=== PATIENT | female | born 1945 | race Caucasian/White ===

== ENCOUNTER → 2017-04-25 | Outpatient (CLI) | payer MEDICARE, MEDICAID ==
[~2017-04-25] MED LIST: PROC60TA
[2017-04-25 12:25] LABS: AUTOMATED NEUTROPHIL # 3.8 TH/MM3 (1.8-7.7); BASOPHIL # 0.1 TH/MM3 (0-0.2); BASOPHIL % 1.3 % (0.0-2.0); EOSINOPHIL # 0.1 TH/MM3 (0-0.4); EOSINOPHIL % 1.4 % (0.0-4.0); HEMATOCRIT 34.1 % (35.0-46.0); HEMO FLAGS DIFF FINAL; LYMPH % 29.5 % (9.0-44.0); MEAN CELL VOLUME 91.9 FL (80.0-100.0); MEAN CORPUSCULAR HEMOGLOBIN 30.9 PG (27.0-34.0); MEAN CORPUSCULAR HGB CONC 33.6 % (32.0-36.0); MONO % 10.1 % (0.0-8.0); NEUT % 57.7 % (16.0-70.0); PLATELET COUNT 284 TH/MM3 (150-450); RED CELL DISTRIBUTION WIDTH 13.6 % (11.6-17.2); WHITE BLOOD COUNT 6.6 TH/MM3 (4.0-11.0)
[2017-04-25 13:06] LABS: ANION GAP 8 MEQ/L (5-15); BICARBONATE 22.6 MEQ/L (21.0-32.0); BLOOD UREA NITROGEN 24 MG/DL (7-18); CHLORIDE 110 MEQ/L (98-107); GLOMERULAR FILTRATION RATE 78 ML/MIN (>89); GLUCOSE,FASTING 102 MG/DL (74-99); SODIUM (NA) 141 MEQ/L (136-145)
[2017-04-25 13:18] LABS: ALKALINE PHOSPHATASE 85 U/L (45-117); ALT (GPT) 14 U/L (10-53); AST (GOT) 14 U/L (15-37); LDL CHOLESTEROL 67 MG/DL (0-99); THYROXINE (T4) 7.3 MCG/DL (4.8-13.9); TOTAL BILIRUBIN ADULT 0.3 MG/DL (0.2-1.0)
[2017-04-25 16:27] LABS: HEMOGLOBIN A1a 0.9 %; HEMOGLOBIN A1b 0.8 %; HEMOGLOBIN Ao 85.8 %; HEMOGLOBIN F 0.9 %; HEMOGLOBIN LA1C 1.9 %; HEMOGLOBIN P3 3.9 %
== END ==
LOC: CLAB 11:58
PROVIDERS: ATTEND Family Medicine
DX: E55.9 Vitamin D deficiency, unspecified (principal); I10 Essential (primary) hypertension; E10.8 Type 1 diabetes mellitus with unspecified complications; R53.83 Other fatigue
CPT/HCPCS: 36415; 80053; 80061; 82306; 83036; 84436; 84443; 84480; 85025

== ENCOUNTER 2018-07-10 16:21 | Inpatient (IN) ==
[2018-07-10 17:09] LABS: Baso # (Auto) 0.1 th/mm3 (0.0-0.2); Baso % (Auto) 1.3 % (0.0-2.0); Eos % (Auto) 0.5 % (0.0-4.0); Hematocrit 31.1 % (35.0-46.0); Hemoglobin 10.6 gm/dL (11.6-15.3); Lymph # (Auto) 1.6 th/mm3 (1.0-4.8); Lymph % (Auto) 18.9 % (9.0-44.0); Mean Corpuscular Hemoglobin 29.1 pg (27.0-34.0); Mean Corpuscular Volume 85.6 fL (80.0-100.0); Mean Platelet Volume 8.4 fL (7.0-11.0); Mono # (Auto) 0.7 th/mm3 (0.0-0.9); Mono % (Auto) 8.5 % (0.0-8.0); Neut # (Auto) 6.1 th/mm3 (1.8-7.7); Neut % (Auto) 70.8 % (16.0-70.0); Platelet Count 284 th/mm3 (150-450); Red Blood Count 3.64 mil/mm3 (4.00-5.30); Red Cell Distribution Width 15.3 % (11.6-17.2); White Blood Count 8.6 th/mm3 (4.0-11.0)
[2018-07-10 17:40] LABS: Albumin 3.6 g/dL (3.4-5.0); Anion Gap 9 meq/L (5-15); Aspartate Aminotransferase 11 U/L (15-37); Blood Urea Nitrogen 22 mg/dL (7-18); Calcium 9.3 mg/dL (8.5-10.1); Carbon Dioxide 22.6 meq/L (21.0-32.0); Chloride 111 meq/L (98-107); Glomerular Filtration Rate 66 mL/min (>89); Glucose,Random 101 mg/dL (74-106); Potassium 3.8 meq/L (3.5-5.1); Sodium 143 meq/L (136-145)
[2018-07-10 17:41] LABS: Alanine Aminotransferase 10 U/L (10-53)
[2018-07-10 17:51] LABS: Alkaline Phosphatase 133 U/L (45-117); Total Protein 7.8 g/dL (6.4-8.2)
--- NOTE | 2018-07-10 17:52 | ED ---
HPI General Chief Complaint: Psychiatric Symptoms Stated Complaint: Pysch Eval/OBPD Time Seen by Provider: 07/10/18 16:31 Source: patient Mode of arrival: ambulatory Limitations: no limitations History of Present Illness HPI Narrative: 73-year-old female presents to the emergency department under Gore act. According to the Gore act report that he has contacted her doctor, Abhishek Pedraza and stated that people are trying to kill her at her apartment. Cathy stated that she hears voices saying the are going to kill her. But his doctor is instructed her to call 911 and have a police officer booking evaluate her. I spoke with her doctor who wants Cathy to be Gore acted. On my evaluation of the patient she denies suicidal or homicidal ideations. Denies auditory or visual hallucinations. Denies illegal drug use. Reports occasional alcohol use. Denies tobacco use. Denies chest pain, shortness of breath, abdominal pain, nausea, vomiting, change in urine or stool. No known aggravating or relieving factors. Symptoms are moderate to severe in severity. Onset unknown. Duration unknown. Allergies to Haldol. Primary care provider is Dr. Hussein. History of lung cancer, hypertension, diabetes mellitus. Has no other medical complaints. No other modifying factors or associated signs and symptoms. Related Data Home Medications Medication Instructions Recorded Confirmed aspirin 81 mg PO DAILY 07/10/18 07/10/18 ibuprofen 800 mg PO TID PRN 07/10/18 07/10/18 metformin 500 mg PO BID 07/10/18 07/10/18 metoprolol succinate 50 mg PO DAILY 07/10/18 07/10/18 nifedipine 90 mg PO DAILY 07/10/18 07/10/18 pantoprazole 40 mg PO DAILY 07/10/18 07/10/18 ropinirole 8 mg PO DAILY 07/10/18 07/10/18 simvastatin 10 mg PO BID 07/10/18 07/10/18 sucralfate 1 g PO Q6H 07/10/18 07/10/18 tramadol 50 mg PO Q6H PRN 07/10/18 07/10/18 Allergies Allergy/AdvReac Type Severity Reaction Status Date / Time haloperidol Allergy Severe MUSCLE Verified 07/11/18 16:44 SPASMS Review of Systems ROS: all other systems reviewed are negative [facility] Medical History Medical History Diabetes (Acute) History of hysterectomy (Acute) Lung cancer (Acute) Family History Family History Other CAD (coronary artery disease) Social History Social History Substance History: No History of Abuse Second Hand Smoke Exposure: Yes Smoking Status: Never smoker How Often Do You Have a Drink Containing Alcohol: Monthly or less Recent Travel in [facility] within the Last 8 Weeks: No Recent Out of Country Travel within the Last 8 Weeks: No Immunization History Tetanus Immunization: Unsure Hx Influenza Vaccine This Season: Yes Course Initial Documented Vital Signs Temperature 99.1 F 07/10/18 16:51 Pulse Rate 79 07/10/18 16:51 Respiratory Rate 18 07/10/18 16:51 Blood Pressure 145/66 H 07/10/18 16:51 Pulse Oximetry 100 07/10/18 16:51 Last Documented Vital Signs Temperature 97.6 F 07/15/18 06:00 Pulse Rate 82 07/15/18 06:00 Respiratory Rate 18 07/15/18 06:00 Blood Pressure 144/67 H 07/15/18 06:00 Pulse Oximetry 99 07/15/18 06:00 Medical Decision Making [facility] Narrative Medical decision making narrative: Patient presents under a Gore act. Physical examination and vital signs are essentially unremarkable. Patient has no medical complaints to report. Psych screen has been ordered. If the laboratory results are unremarkable, the patient will be medically cleared for psychiatric evaluation and disposition. Medical Screen Exam Complete: Yes Emergency Medical Condition: Yes Lab Data Result diagrams: 07/11/18 11:47 07/14/18 20:22 Lab Results 07/10/18 07/10/18 07/10/18 Range/Units 16:35 16:35 16:35 WBC 8.6 (4.0-11.0) th/mm3 RBC 3.64 L (4.00-5.30) mil/mm3 Hgb 10.6 L (11.6-15.3) gm/dL Hct 31.1 L (35.0-46.0) % MCV 85.6 (80.0-100.0) fL MCH 29.1 (27.0-34.0) pg MCHC 34.0 (32.0-36.0) % RDW 15.3 (11.6-17.2) % Plt Count 284 (150-450) th/mm3 MPV 8.4 (7.0-11.0) fL Neut % (Auto) 70.8 H (16.0-70.0) % Lymph % (Auto) 18.9 (9.0-44.0) % Gage % (Auto) 8.5 H (0.0-8.0) % Eos % (Auto) 0.5 (0.0-4.0) % Baso % (Auto) 1.3 (0.0-2.0) % Neut # (Auto) 6.1 (1.8-7.7) th/mm3 Lymph # (Auto) 1.6 (1.0-4.8) th/mm3 Gage # (Auto) 0.7 (0.0-0.9) th/mm3 Eos # (Auto) 0.0 (0.0-0.4) th/mm3 Baso # (Auto) 0.1 (0.0-0.2) th/mm3 WBC Differential . Differential Comment Auto diff final Sodium 143 (136-145) meq/L Potassium 3.8 (3.5-5.1) meq/L Chloride 111 H (98-107) meq/L Carbon Dioxide 22.6 (21.0-32.0) meq/L Anion Gap 9 (5-15) meq/L BUN 22 H (7-18) mg/dL Creatinine 0.84 (0.50-1.00) mg/dL Estimated GFR 66 L (>89) mL/min POC Glucose (68-110) mg/dl Random Glucose 101 (74-106) mg/dL Hemoglobin A1c (4.3-6.0) % Calcium 9.3 (8.5-10.1) mg/dL Total Bilirubin 0.3 (0.2-1.0) mg/dL AST 11 L (15-37) U/L ALT 10 (10-53) U/L Alkaline Phosphatase 133 H (45-117) U/L Ammonia (11-32) mcmol/L Total Protein 7.8 (6.4-8.2) g/dL Albumin 3.6 (3.4-5.0) g/dL Triglycerides (42-150) mg/dL Cholesterol (120-200) mg/dL LDL Cholesterol, Calc (0-99) mg/dL HDL Cholesterol (40.0-60.0) mg/dL Cholesterol/HDL Ratio Ratio TSH 2.070 (0.358-3.740) uIU/mL Free T4 (0.76-1.46) ng/dL Free T3 (2.18-3.98) pg/mL Urine Color (Yellw/Straw) Urine Clarity (Clear) Urine pH (5.0-8.5) Ur Specific [place] (1.002-1.035) Urine Protein (Neg-Trace) mg/dL Urine Glucose (UA) (Negative) mg/dL Urine Ketones (Negative) mg/dL Urine Occult Blood (Negative) Urine Nitrate (Negative) Urine Bilirubin (Negative) Urine Urobilinogen (Less than 2) mg/dL Ur Leukocyte Esterase (Negative) Urine RBC (0-3) /hpf Urine WBC (0-5) /hpf Ur Squamous Epith Cells (0-5) /hpf Urine Bacteria (None) /hpf Micro UA Comment Ur Microscopic Review Urine Culture Comments Salicylates 1.9 L (2.8-20.0) mg/dL Urine Opiates Screen (Neg) Acetaminophen Less than 2.0 L (10.0-30.0) mcg/mL Ur Barbiturates Screen (Neg) Ur Amphetamines Screen (Neg) U Benzodiazepines Scrn (Neg) Urine Cocaine Screen (Neg) U Cannabinoids Screen (Neg) Serum Alcohol Less than 3 (0-5) mg/dL 07/10/18 07/10/18 07/10/18 Range/Units 19:10 19:10 22:36 WBC (4.0-11.0) th/mm3 RBC (4.00-5.30) mil/mm3 Hgb (11.6-15.3) gm/dL Hct (35.0-46.0) % MCV (80.0-100.0) fL MCH (27.0-34.0) pg MCHC (32.0-36.0) % RDW (11.6-17.2) % Plt Count (150-450) th/mm3 MPV (7.0-11.0) fL Neut % (Auto) (16.0-70.0) % Lymph % (Auto) (9.0-44.0) % Gage % (Auto) (0.0-8.0) % Eos % (Auto) (0.0-4.0) % Baso % (Auto) (0.0-2.0) % Neut # (Auto) (1.8-7.7) th/mm3 Lymph # (Auto) (1.0-4.8) th/mm3 Gage # (Auto) (0.0-0.9) th/mm3 Eos # (Auto) (0.0-0.4) th/mm3 Baso # (Auto) (0.0-0.2) th/mm3 WBC Differential Differential Comment Sodium (136-145) meq/L Potassium (3.5-5.1) meq/L Chloride (98-107) meq/L Carbon Dioxide (21.0-32.0) meq/L Anion Gap (5-15) meq/L BUN (7-18) mg/dL Creatinine (0.50-1.00) mg/dL Estimated GFR (>89) mL/min POC Glucose 112 H (68-110) mg/dl Random Glucose (74-106) mg/dL Hemoglobin A1c (4.3-6.0) % Calcium (8.5-10.1) mg/dL Total Bilirubin (0.2-1.0) mg/dL AST (15-37) U/L ALT (10-53) U/L Alkaline Phosphatase (45-117) U/L Ammonia (11-32) mcmol/L Total Protein (6.4-8.2) g/dL Albumin (3.4-5.0) g/dL Triglycerides (42-150) mg/dL Cholesterol (120-200) mg/dL LDL Cholesterol, Calc (0-99) mg/dL HDL Cholesterol (40.0-60.0) mg/dL Cholesterol/HDL Ratio Ratio TSH (0.358-3.740) uIU/mL Free T4 (0.76-1.46) ng/dL Free T3 (2.18-3.98) pg/mL Urine Color Straw (Yellw/Straw) Urine Clarity Hazy H (Clear) Urine pH 6.0 (5.0-8.5) Ur Specific [place] 1.008 (1.002-1.035) Urine Protein Negative (Neg-Trace) mg/dL Urine Glucose (UA) Negative (Negative) mg/dL Urine Ketones Negative (Negative) mg/dL Urine Occult Blood Small H (Negative) Urine Nitrate Negative (Negative) Urine Bilirubin Negative (Negative) Urine Urobilinogen Less than 2 (Less than 2) mg/dL Ur Leukocyte Esterase Moderate H (Negative) Urine RBC 2 (0-3) /hpf Urine WBC 13 H (0-5) /hpf Ur Squamous Epith Cells 1 (0-5) /hpf Urine Bacteria Rare H (None) /hpf Micro UA Comment Culture indicated Ur Microscopic Review Not Reportable Urine Culture Comments Culture indicated Salicylates (2.8-20.0) mg/dL Urine Opiates Screen Neg (Neg) Acetaminophen (10.0-30.0) mcg/mL Ur Barbiturates Screen Neg (Neg) Ur Amphetamines Screen Neg (Neg) U Benzodiazepines Scrn Neg (Neg) Urine Cocaine Screen Neg (Neg) U Cannabinoids Screen Neg (Neg) Serum Alcohol (0-5) mg/dL 07/11/18 07/11/18 07/11/18 Range/Units 11:04 11:47 11:47 WBC 8.8 (4.0-11.0) th/mm3 RBC 4.12 (4.00-5.30) mil/mm3 Hgb 11.5 L (11.6-15.3) gm/dL Hct 35.9 (35.0-46.0) % MCV 87.1 (80.0-100.0) fL MCH 27.8 (27.0-34.0) pg MCHC 31.9 L (32.0-36.0) % RDW 15.6 (11.6-17.2) % Plt Count 307 (150-450) th/mm3 MPV 8.8 (7.0-11.0) fL Neut % (Auto) 76.3 H (16.0-70.0) % Lymph % (Auto) 13.9 (9.0-44.0) % Gage % (Auto) 8.1 H (0.0-8.0) % Eos % (Auto) 0.5 (0.0-4.0) % Baso % (Auto) 1.2 (0.0-2.0) % Neut # (Auto) 6.7 (1.8-7.7) th/mm3 Lymph # (Auto) 1.2 (1.0-4.8) th/mm3 Gage # (Auto) 0.7 (0.0-0.9) th/mm3 Eos # (Auto) 0.0 (0.0-0.4) th/mm3 Baso # (Auto) 0.1 (0.0-0.2) th/mm3 WBC Differential . Differential Comment Auto diff final Sodium 143 (136-145) meq/L Potassium 3.7 (3.5-5.1) meq/L Chloride 106 (98-107) meq/L Carbon Dioxide 28.5 (21.0-32.0) meq/L Anion Gap 9 (5-15) meq/L BUN 20 H (7-18) mg/dL Creatinine 1.02 H (0.50-1.00) mg/dL Estimated GFR 53 L (>89) mL/min POC Glucose 106 (68-110) mg/dl Random Glucose 79 (74-106) mg/dL Hemoglobin A1c (4.3-6.0) % Calcium 9.4 (8.5-10.1) mg/dL Total Bilirubin 0.4 (0.2-1.0) mg/dL AST 16 (15-37) U/L ALT 11 (10-53) U/L Alkaline Phosphatase 145 H (45-117) U/L Ammonia (11-32) mcmol/L Total Protein 8.1 (6.4-8.2) g/dL Albumin 3.6 (3.4-5.0) g/dL Triglycerides 91 (42-150) mg/dL Cholesterol 145 (120-200) mg/dL LDL Cholesterol, Calc 52 (0-99) mg/dL HDL Cholesterol 75.2 H (40.0-60.0) mg/dL Cholesterol/HDL Ratio 1.92 Ratio TSH (0.358-3.740) uIU/mL Free T4 (0.76-1.46) ng/dL Free T3 (2.18-3.98) pg/mL Urine Color (Yellw/Straw) Urine Clarity (Clear) Urine pH (5.0-8.5) Ur Specific [place] (1.002-1.035) Urine Protein (Neg-Trace) mg/dL Urine Glucose (UA) (Negative) mg/dL Urine Ketones (Negative) mg/dL Urine Occult Blood (Negative) Urine Nitrate (Negative) Urine Bilirubin (Negative) Urine Urobilinogen (Less than 2) mg/dL Ur Leukocyte Esterase (Negative) Urine RBC (0-3) /hpf Urine WBC (0-5) /hpf Ur Squamous Epith Cells (0-5) /hpf Urine Bacteria (None) /hpf Micro UA Comment Ur Microscopic Review Urine Culture Comments Salicylates (2.8-20.0) mg/dL Urine Opiates Screen (Neg) Acetaminophen (10.0-30.0) mcg/mL Ur Barbiturates Screen (Neg) Ur Amphetamines Screen (Neg) U Benzodiazepines Scrn (Neg) Urine Cocaine Screen (Neg) U Cannabinoids Screen (Neg) Serum Alcohol (0-5) mg/dL 07/11/18 07/12/18 07/12/18 Range/Units 11:47 08:19 11:19 WBC (4.0-11.0) th/mm3 RBC (4.00-5.30) mil/mm3 Hgb (11.6-15.3) gm/dL Hct (35.0-46.0) % MCV (80.0-100.0) fL MCH (27.0-34.0) pg MCHC (32.0-36.0) % RDW (11.6-17.2) % Plt Count (150-450) th/mm3 MPV (7.0-11.0) fL Neut % (Auto) (16.0-70.0) % Lymph % (Auto) (9.0-44.0) % Gage % (Auto) (0.0-8.0) % Eos % (Auto) (0.0-4.0) % Baso % (Auto) (0.0-2.0) % Neut # (Auto) (1.8-7.7) th/mm3 Lymph # (Auto) (1.0-4.8) th/mm3 Gage # (Auto) (0.0-0.9) th/mm3 Eos # (Auto) (0.0-0.4) th/mm3 Baso # (Auto) (0.0-0.2) th/mm3 WBC Differential Differential Comment Sodium 138 (136-145) meq/L Potassium 3.7 (3.5-5.1) meq/L Chloride 104 (98-107) meq/L Carbon Dioxide 25.9 (21.0-32.0) meq/L Anion Gap 8 (5-15) meq/L BUN 28 H (7-18) mg/dL Creatinine 1.23 H (0.50-1.00) mg/dL Estimated GFR 43 L (>89) mL/min POC Glucose 103 (68-110) mg/dl Random Glucose 157 H (74-106) mg/dL Hemoglobin A1c 5.7 (4.3-6.0) % Calcium 9.3 (8.5-10.1) mg/dL Total Bilirubin (0.2-1.0) mg/dL AST (15-37) U/L ALT (10-53) U/L Alkaline Phosphatase (45-117) U/L Ammonia (11-32) mcmol/L Total Protein (6.4-8.2) g/dL Albumin (3.4-5.0) g/dL Triglycerides (42-150) mg/dL Cholesterol (120-200) mg/dL LDL Cholesterol, Calc (0-99) mg/dL HDL Cholesterol (40.0-60.0) mg/dL Cholesterol/HDL Ratio Ratio TSH (0.358-3.740) uIU/mL Free T4 (0.76-1.46) ng/dL Free T3 (2.18-3.98) pg/mL Urine Color (Yellw/Straw) Urine Clarity (Clear) Urine pH (5.0-8.5) Ur Specific [place] (1.002-1.035) Urine Protein (Neg-Trace) mg/dL Urine Glucose (UA) (Negative) mg/dL Urine Ketones (Negative) mg/dL Urine Occult Blood (Negative) Urine Nitrate (Negative) Urine Bilirubin (Negative) Urine Urobilinogen (Less than 2) mg/dL Ur Leukocyte Esterase (Negative) Urine RBC (0-3) /hpf Urine WBC (0-5) /hpf Ur Squamous Epith Cells (0-5) /hpf Urine Bacteria (None) /hpf Micro UA Comment Ur Microscopic Review Urine Culture Comments Salicylates (2.8-20.0) mg/dL Urine Opiates Screen (Neg) Acetaminophen (10.0-30.0) mcg/mL Ur Barbiturates Screen (Neg) Ur Amphetamines Screen (Neg) U Benzodiazepines Scrn (Neg) Urine Cocaine Screen (Neg) U Cannabinoids Screen (Neg) Serum Alcohol (0-5) mg/dL 07/12/18 07/13/18 07/13/18 Range/Units 19:18 11:07 16:05 WBC (4.0-11.0) th/mm3 RBC (4.00-5.30) mil/mm3 Hgb (11.6-15.3) gm/dL Hct (35.0-46.0) % MCV (80.0-100.0) fL MCH (27.0-34.0) pg MCHC (32.0-36.0) % RDW (11.6-17.2) % Plt Count (150-450) th/mm3 MPV (7.0-11.0) fL Neut % (Auto) (16.0-70.0) % Lymph % (Auto) (9.0-44.0) % Gage % (Auto) (0.0-8.0) % Eos % (Auto) (0.0-4.0) % Baso % (Auto) (0.0-2.0) % Neut # (Auto) (1.8-7.7) th/mm3 Lymph # (Auto) (1.0-4.8) th/mm3 Gage # (Auto) (0.0-0.9) th/mm3 Eos # (Auto) (0.0-0.4) th/mm3 Baso # (Auto) (0.0-0.2) th/mm3 WBC Differential Differential Comment Sodium 138 (136-145) meq/L Potassium 4.2 (3.5-5.1) meq/L Chloride 107 (98-107) meq/L Carbon Dioxide 22.8 (21.0-32.0) meq/L Anion Gap 8 (5-15) meq/L BUN 35 H (7-18) mg/dL Creatinine 1.39 H (0.50-1.00) mg/dL Estimated GFR 37 L (>89) mL/min POC Glucose 115 H 110 (68-110) mg/dl Random Glucose 127 H (74-106) mg/dL Hemoglobin A1c (4.3-6.0) % Calcium 8.6 (8.5-10.1) mg/dL Total Bilirubin (0.2-1.0) mg/dL AST (15-37) U/L ALT (10-53) U/L Alkaline Phosphatase (45-117) U/L Ammonia (11-32) mcmol/L Total Protein (6.4-8.2) g/dL Albumin (3.4-5.0) g/dL Triglycerides (42-150) mg/dL Cholesterol (120-200) mg/dL LDL Cholesterol, Calc (0-99) mg/dL HDL Cholesterol (40.0-60.0) mg/dL Cholesterol/HDL Ratio Ratio TSH (0.358-3.740) uIU/mL Free T4 (0.76-1.46) ng/dL Free T3 (2.18-3.98) pg/mL Urine Color (Yellw/Straw) Urine Clarity (Clear) Urine pH (5.0-8.5) Ur Specific [place] (1.002-1.035) Urine Protein (Neg-Trace) mg/dL Urine Glucose (UA) (Negative) mg/dL Urine Ketones (Negative) mg/dL Urine Occult Blood (Negative) Urine Nitrate (Negative) Urine Bilirubin (Negative) Urine Urobilinogen (Less than 2) mg/dL Ur Leukocyte Esterase (Negative) Urine RBC (0-3) /hpf Urine WBC (0-5) /hpf Ur Squamous Epith Cells (0-5) /hpf Urine Bacteria (None) /hpf Micro UA Comment Ur Microscopic Review Urine Culture Comments Salicylates (2.8-20.0) mg/dL Urine Opiates Screen (Neg) Acetaminophen (10.0-30.0) mcg/mL Ur Barbiturates Screen (Neg) Ur Amphetamines Screen (Neg) U Benzodiazepines Scrn (Neg) Urine Cocaine Screen (Neg) U Cannabinoids Screen (Neg) Serum Alcohol (0-5) mg/dL 07/13/18 07/14/18 07/14/18 Range/Units 20:35 07:43 07:45 WBC (4.0-11.0) th/mm3 RBC (4.00-5.30) mil/mm3 Hgb (11.6-15.3) gm/dL Hct (35.0-46.0) % MCV (80.0-100.0) fL MCH (27.0-34.0) pg MCHC (32.0-36.0) % RDW (11.6-17.2) % Plt Count (150-450) th/mm3 MPV (7.0-11.0) fL Neut % (Auto) (16.0-70.0) % Lymph % (Auto) (9.0-44.0) % Gage % (Auto) (0.0-8.0) % Eos % (Auto) (0.0-4.0) % Baso % (Auto) (0.0-2.0) % Neut # (Auto) (1.8-7.7) th/mm3 Lymph # (Auto) (1.0-4.8) th/mm3 Gage # (Auto) (0.0-0.9) th/mm3 Eos # (Auto) (0.0-0.4) th/mm3 Baso # (Auto) (0.0-0.2) th/mm3 WBC Differential Differential Comment Sodium 132 L (136-145) meq/L Potassium 4.1 (3.5-5.1) meq/L Chloride 100 (98-107) meq/L Carbon Dioxide 22.8 (21.0-32.0) meq/L Anion Gap 9 (5-15) meq/L BUN 27 H (7-18) mg/dL Creatinine 0.84 (0.50-1.00) mg/dL Estimated GFR 66 L (>89) mL/min POC Glucose 102 114 H (68-110) mg/dl Random Glucose 97 (74-106) mg/dL Hemoglobin A1c (4.3-6.0) % Calcium 8.9 (8.5-10.1) mg/dL Total Bilirubin (0.2-1.0) mg/dL AST (15-37) U/L ALT (10-53) U/L Alkaline Phosphatase (45-117) U/L Ammonia (11-32) mcmol/L Total Protein (6.4-8.2) g/dL Albumin (3.4-5.0) g/dL Triglycerides (42-150) mg/dL Cholesterol (120-200) mg/dL LDL Cholesterol, Calc (0-99) mg/dL HDL Cholesterol (40.0-60.0) mg/dL Cholesterol/HDL Ratio Ratio TSH (0.358-3.740) uIU/mL Free T4 (0.76-1.46) ng/dL Free T3 (2.18-3.98) pg/mL Urine Color (Yellw/Straw) Urine Clarity (Clear) Urine pH (5.0-8.5) Ur Specific [place] (1.002-1.035) Urine Protein (Neg-Trace) mg/dL Urine Glucose (UA) (Negative) mg/dL Urine Ketones (Negative) mg/dL Urine Occult Blood (Negative) Urine Nitrate (Negative) Urine Bilirubin (Negative) Urine Urobilinogen (Less than 2) mg/dL Ur Leukocyte Esterase (Negative) Urine RBC (0-3) /hpf Urine WBC (0-5) /hpf Ur Squamous Epith Cells (0-5) /hpf Urine Bacteria (None) /hpf Micro UA Comment Ur Microscopic Review Urine Culture Comments Salicylates (2.8-20.0) mg/dL Urine Opiates Screen (Neg) Acetaminophen (10.0-30.0) mcg/mL Ur Barbiturates Screen (Neg) Ur Amphetamines Screen (Neg) U Benzodiazepines Scrn (Neg) Urine Cocaine Screen (Neg) U Cannabinoids Screen (Neg) Serum Alcohol (0-5) mg/dL 07/14/18 07/14/18 07/14/18 Range/Units 11:50 16:35 20:19 WBC (4.0-11.0) th/mm3 RBC (4.00-5.30) mil/mm3 Hgb (11.6-15.3) gm/dL Hct (35.0-46.0) % MCV (80.0-100.0) fL MCH (27.0-34.0) pg MCHC (32.0-36.0) % RDW (11.6-17.2) % Plt Count (150-450) th/mm3 MPV (7.0-11.0) fL Neut % (Auto) (16.0-70.0) % Lymph % (Auto) (9.0-44.0) % Gage % (Auto) (0.0-8.0) % Eos % (Auto) (0.0-4.0) % Baso % (Auto) (0.0-2.0) % Neut # (Auto) (1.8-7.7) th/mm3 Lymph # (Auto) (1.0-4.8) th/mm3 Gage # (Auto) (0.0-0.9) th/mm3 Eos # (Auto) (0.0-0.4) th/mm3 Baso # (Auto) (0.0-0.2) th/mm3 WBC Differential Differential Comment Sodium (136-145) meq/L Potassium (3.5-5.1) meq/L Chloride (98-107) meq/L Carbon Dioxide (21.0-32.0) meq/L Anion Gap (5-15) meq/L BUN (7-18) mg/dL Creatinine (0.50-1.00) mg/dL Estimated GFR (>89) mL/min POC Glucose 91 98 107 (68-110) mg/dl Random Glucose (74-106) mg/dL Hemoglobin A1c (4.3-6.0) % Calcium (8.5-10.1) mg/dL Total Bilirubin (0.2-1.0) mg/dL AST (15-37) U/L ALT (10-53) U/L Alkaline Phosphatase (45-117) U/L Ammonia (11-32) mcmol/L Total Protein (6.4-8.2) g/dL Albumin (3.4-5.0) g/dL Triglycerides (42-150) mg/dL Cholesterol (120-200) mg/dL LDL Cholesterol, Calc (0-99) mg/dL HDL Cholesterol (40.0-60.0) mg/dL Cholesterol/HDL Ratio Ratio TSH (0.358-3.740) uIU/mL Free T4 (0.76-1.46) ng/dL Free T3 (2.18-3.98) pg/mL Urine Color (Yellw/Straw) Urine Clarity (Clear) Urine pH (5.0-8.5) Ur Specific [place] (1.002-1.035) Urine Protein (Neg-Trace) mg/dL Urine Glucose (UA) (Negative) mg/dL Urine Ketones (Negative) mg/dL Urine Occult Blood (Negative) Urine Nitrate (Negative) Urine Bilirubin (Negative) Urine Urobilinogen (Less than 2) mg/dL Ur Leukocyte Esterase (Negative) Urine RBC (0-3) /hpf Urine WBC (0-5) /hpf Ur Squamous Epith Cells (0-5) /hpf Urine Bacteria (None) /hpf Micro UA Comment Ur Microscopic Review Urine Culture Comments Salicylates (2.8-20.0) mg/dL Urine Opiates Screen (Neg) Acetaminophen (10.0-30.0) mcg/mL Ur Barbiturates Screen (Neg) Ur Amphetamines Screen (Neg) U Benzodiazepines Scrn (Neg) Urine Cocaine Screen (Neg) U Cannabinoids Screen (Neg) Serum Alcohol (0-5) mg/dL 07/14/18 07/14/18 07/14/18 Range/Units 20:22 20:22 20:22 WBC (4.0-11.0) th/mm3 RBC (4.00-5.30) mil/mm3 Hgb (11.6-15.3) gm/dL Hct (35.0-46.0) % MCV (80.0-100.0) fL MCH (27.0-34.0) pg MCHC (32.0-36.0) % RDW (11.6-17.2) % Plt Count (150-450) th/mm3 MPV (7.0-11.0) fL Neut % (Auto) (16.0-70.0) % Lymph % (Auto) (9.0-44.0) % Gage % (Auto) (0.0-8.0) % Eos % (Auto) (0.0-4.0) % Baso % (Auto) (0.0-2.0) % Neut # (Auto) (1.8-7.7) th/mm3 Lymph # (Auto) (1.0-4.8) th/mm3 Gage # (Auto) (0.0-0.9) th/mm3 Eos # (Auto) (0.0-0.4) th/mm3 Baso # (Auto) (0.0-0.2) th/mm3 WBC Differential Differential Comment Sodium 135 L (136-145) meq/L Potassium 4.6 (3.5-5.1) meq/L Chloride 103 (98-107) meq/L Carbon Dioxide 21.9 (21.0-32.0) meq/L Anion Gap 10 (5-15) meq/L BUN 28 H (7-18) mg/dL Creatinine 0.97 (0.50-1.00) mg/dL Estimated GFR 56 L (>89) mL/min POC Glucose (68-110) mg/dl Random Glucose 96 (74-106) mg/dL Hemoglobin A1c (4.3-6.0) % Calcium 9.1 (8.5-10.1) mg/dL Total Bilirubin (0.2-1.0) mg/dL AST (15-37) U/L ALT (10-53) U/L Alkaline Phosphatase (45-117) U/L Ammonia 18 (11-32) mcmol/L Total Protein (6.4-8.2) g/dL Albumin (3.4-5.0) g/dL Triglycerides (42-150) mg/dL Cholesterol (120-200) mg/dL LDL Cholesterol, Calc (0-99) mg/dL HDL Cholesterol (40.0-60.0) mg/dL Cholesterol/HDL Ratio Ratio TSH 1.990 (0.358-3.740) uIU/mL Free T4 0.81 (0.76-1.46) ng/dL Free T3 2.01 L (2.18-3.98) pg/mL Urine Color (Yellw/Straw) Urine Clarity (Clear) Urine pH (5.0-8.5) Ur Specific [place] (1.002-1.035) Urine Protein (Neg-Trace) mg/dL Urine Glucose (UA) (Negative) mg/dL Urine Ketones (Negative) mg/dL Urine Occult Blood (Negative) Urine Nitrate (Negative) Urine Bilirubin (Negative) Urine Urobilinogen (Less than 2) mg/dL Ur Leukocyte Esterase (Negative) Urine RBC (0-3) /hpf Urine WBC (0-5) /hpf Ur Squamous Epith Cells (0-5) /hpf Urine Bacteria (None) /hpf Micro UA Comment Ur Microscopic Review Urine Culture Comments Salicylates (2.8-20.0) mg/dL Urine Opiates Screen (Neg) Acetaminophen (10.0-30.0) mcg/mL Ur Barbiturates Screen (Neg) Ur Amphetamines Screen (Neg) U Benzodiazepines Scrn (Neg) Urine Cocaine Screen (Neg) U Cannabinoids Screen (Neg) Serum Alcohol (0-5) mg/dL 07/15/18 Range/Units 06:11 WBC (4.0-11.0) th/mm3 RBC (4.00-5.30) mil/mm3 Hgb (11.6-15.3) gm/dL Hct (35.0-46.0) % MCV (80.0-100.0) fL MCH (27.0-34.0) pg MCHC (32.0-36.0) % RDW (11.6-17.2) % Plt Count (150-450) th/mm3 MPV (7.0-11.0) fL Neut % (Auto) (16.0-70.0) % Lymph % (Auto) (9.0-44.0) % Gage % (Auto) (0.0-8.0) % Eos % (Auto) (0.0-4.0) % Baso % (Auto) (0.0-2.0) % Neut # (Auto) (1.8-7.7) th/mm3 Lymph # (Auto) (1.0-4.8) th/mm3 Gage # (Auto) (0.0-0.9) th/mm3 Eos # (Auto) (0.0-0.4) th/mm3 Baso # (Auto) (0.0-0.2) th/mm3 WBC Differential Differential Comment Sodium (136-145) meq/L Potassium (3.5-5.1) meq/L Chloride (98-107) meq/L Carbon Dioxide (21.0-32.0) meq/L Anion Gap (5-15) meq/L BUN (7-18) mg/dL Creatinine (0.50-1.00) mg/dL Estimated GFR (>89) mL/min POC Glucose 105 (68-110) mg/dl Random Glucose (74-106) mg/dL Hemoglobin A1c (4.3-6.0) % Calcium (8.5-10.1) mg/dL Total Bilirubin (0.2-1.0) mg/dL AST (15-37) U/L ALT (10-53) U/L Alkaline Phosphatase (45-117) U/L Ammonia (11-32) mcmol/L Total Protein (6.4-8.2) g/dL Albumin (3.4-5.0) g/dL Triglycerides (42-150) mg/dL Cholesterol (120-200) mg/dL LDL Cholesterol, Calc (0-99) mg/dL HDL Cholesterol (40.0-60.0) mg/dL Cholesterol/HDL Ratio Ratio TSH (0.358-3.740) uIU/mL Free T4 (0.76-1.46) ng/dL Free T3 (2.18-3.98) pg/mL Urine Color (Yellw/Straw) Urine Clarity (Clear) Urine pH (5.0-8.5) Ur Specific [place] (1.002-1.035) Urine Protein (Neg-Trace) mg/dL Urine Glucose (UA) (Negative) mg/dL Urine Ketones (Negative) mg/dL Urine Occult Blood (Negative) Urine Nitrate (Negative) Urine Bilirubin (Negative) Urine Urobilinogen (Less than 2) mg/dL Ur Leukocyte Esterase (Negative) Urine RBC (0-3) /hpf Urine WBC (0-5) /hpf Ur Squamous Epith Cells (0-5) /hpf Urine Bacteria (None) /hpf Micro UA Comment Ur Microscopic Review Urine Culture Comments Salicylates (2.8-20.0) mg/dL Urine Opiates Screen (Neg) Acetaminophen (10.0-30.0) mcg/mL Ur Barbiturates Screen (Neg) Ur Amphetamines Screen (Neg) U Benzodiazepines Scrn (Neg) Urine Cocaine Screen (Neg) U Cannabinoids Screen (Neg) Serum Alcohol (0-5) mg/dL Imaging Data Radiologist's impression: Hip X-Ray 07/14/18 00:00 CONCLUSION: 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 Associated varus deformity and marked bone resorption and cortical thinning but no acute fracture demonstrated. Discharge Plan Discharge Disposition Patient Disposition: 30 Still Patient Discharge Condition Condition: Stable Discharge Details Diagnosis: Encounter for medical clearance for patient hold Physicians Team ED Provider: Andree Gore ED Midlevel Provider: Geovanna Daniel Primary Care Provider: Fred Anaya Attending Provider: Tre Perry Other Providers: Fred Anaya ; Tre Perry Status ED Status: Left Department Discharge Information Discharge Date/Time: 07/10/18 21:01
[2018-07-10 19:33] LABS: Bacteria,Urine Rare /hpf; Bilirubin,Urine Negative (Negative); Clarity,Urine Hazy (Clear); Color,Urine Straw (Yellw/Straw); Glucose,Urine (UA) Negative (Negative); Leukocyte Esterase,Urine Moderate (Negative); Nitrite,Urine Negative (Negative); Specific Gravity,Urine 1.008 (1.002-1.035); Squamous Epithelial Cell,Urine 1 /hpf (0-5)
[2018-07-10 19:37] LABS: Amphetamine Screen,Urine Neg (Neg); Barbiturate Screen,Urine Neg (Neg); Cannabinoid Screen,Urine Neg (Neg); Cocaine Screen,Urine Neg (Neg)
[2018-07-10 19:40] LABS: Opiate Screen,Urine Neg (Neg)
[2018-07-10] MEDS ORDERED: Melatonin 5 MG Tablet PO PRN (19:52)
[2018-07-10] MEDS ORDERED: Aluminum/Magnesium/Simethacone Susp 30 ML UDC PO PRN (19:52)
[2018-07-10] MEDS ORDERED: Dextrose 50% in Water 50 ML Vial IV.PUSH PRN (19:55)
[2018-07-10] MEDS ORDERED: Simvastatin 20 MG Tablet PO SCH (21:00)
[2018-07-10] MEDS: Insulin NovoLOG Aspart Correctional Sugar Inj SQ SCH (22:05)
[2018-07-11] MEDS: Insulin NovoLOG Aspart Correctional Sugar Inj SQ SCH ×4 (07:39→20:56)
[2018-07-11] MEDS: Sucralfate 1 GM Tablet PO SCH ×3 (09:46→17:23)
--- NOTE | 2018-07-11 12:30 | P.HPPSY ---
Provisional Diagnosis Admission Date: July 10, 2018 19:53 [place] I.: Unspecified psychosis Competence Certification of Person's Competence To Provide Express and Informed Consent I have personally examined Cathy Isaac, a person being served at [facility] on, July 11, 2018 1220. Express and informed consent means consent voluntarily given in writing, by a competent person, after sufficient explanation and disclosure of the subject matter involved to enable the person to make a knowing and willful decision without any element of force, fraud, deceit, duress, or other form of constraint or coercion. This person is 18 years of age or older, is not now known to be incompetent to consent to treatment with a guardian advocate, and does not have a health care surrogate or proxy currently making medical treatment decisions. I have found this person to be one of the following: [] Competent to provide express and informed consent, as defined above, for voluntary admission to this facility and is competent to provide express and informed consent for treatment. He/she has the consistent capacity to make well reasoned, willful, and knowing decisions concerning his or her medical or mental health treatment. The person fully and consistently understands the purpose of the admission for examination/placement and is fully capable of personally exercising all rights [place]xxx] Incompetent to provide express and informed consent to voluntary admission , and this is incompetent to provide express and informed consent to treatment. The person must be transferred to involuntary status and a petition for a guardian advocate filed with the Circuit Court. [] Refusing to provide express and informed consent to voluntary admission but is competent to provide express and informed consent for treatment. The person must be discharged or transferred to involuntary status. Form shall be completed within 24 hours of a person's arrival at the receiving facility and filed in the clinical record of each person: 1. Admitted on a voluntary basis 2. Permitted to provide express and informed consent to his/her own treatment 3. Allowed to transfer from involuntary to voluntary status 4. Prior to permitting a person to consent to his or her own treatment after having been previously found incompetent to consent to treatment. History of Present Illness Capacity: Lacks capacity History of Present Illness: Patient is a 73-year-old woman, single, no children, domiciled alone, Social Security benefits, with a past psychiatric history of unspecified psychosis, history of depression and dissociative disorder as per patient, 2 previous psychiatric admissions last at [facility] in 2005, no previous suicide attempts or self-injurious behavior, with a past medical history significant for hypertension, diabetes, history of lung cancer status post right lung resection and chemotherapy, who was brought into the ED under [place] act after patient had contacted her physician stated the people trying to kill her at her apartment endorsing voices that are saying that they are going to kill he in the context of current UTI which patient was admitted to the inpatient psychiatry unit for further evaluation and management. Patient was found in day room eating lunch noted B, cooperative. Patient states that while she was at home she had heard voices stating "he wanted to kill me" and stated that she had walked to the local convenience store and will stop by homeless people who had interrogated her when she then stated having return back to her home and shut the blinds for fear of a sniper. She states that she called the police stating that people were trying to murder her. She also mentions that she has the voices she hears in her home which she believes are due to thin [place]. Patient states her mood has been "happy" denying feeling depressed, denying suicidal homicidal ideations, patient continued with a very paranoid and persecutory delusions, alert and oriented 3. Attempt to obtain collateral formation from patient's brother Dixon Isaac [phone], was attempted but there was no answer. We will attempt to contact patient's brother to have him serve as patient's healthcare surrogate and guardian advocate. Family psychiatric history: Patient reports grandfather with history of dementia Past psychiatric history: History of unspecified psychosis, depression and dissociative disorder as per patient, 2 previous psychiatric admissions last time being here at [facility] in 2005, no previous suicide attempt or self- injurious behavior. Patient has no outpatient mental health provider at this time. Previous medication trials include quetiapine. Substance use history: Alcohol use 1-2 times a week DM, HTN, history of lung cancer status post lung resection and chemotherapy Allergies: Haldol Social history: Single, no children, domiciled alone, unemployed on Social Security benefits collateral contact is patient's brother Dixon Johnsonbarbara [phone] - Inpatient Certification I certify that the inpatient services were ordered in accordance with Medicare regulations governing the order. This includes certification that hospital inpatient services are reasonable and necessary and in the case of services not specified as inpatient-only under 42 CFR 419.22(n), that they are appropriately provided as inpatient services in accordance to with the 2-midnight benchmark under 43 CFR 412.3(e) I certify that inpatient psychiatric hospital services are medically necessary. Evaluation and treatment and/or diagnostic testing are expected to improve the patient's condition. The patient needs on a daily basis, active treatment furnished directly by or requiring the supervision of inpatient psychiatric facility personnel. Estimated Total Length of Stay (Days): 7 Plans for Post Hospital Care: Not yet determined Review of Systems All other systems reviewed negative except as stated in HPI PMFSH - History History Provided By: Patient, Medical Record - Medical History Medical History: Medical History (Last Reviewed 07/11/18 @ 07:26 by Kevan Trinh) Diabetes History of hysterectomy Lung cancer - Surgical History Surgical History: Surgical History (Last Reviewed 07/11/18 @ 07:26 by Kevan Trinh) History of dilatation and curettage History of lobectomy of lung - Tobacco History Second Hand Smoke Exposure: Yes Smoking Status: Never smoker - Alcohol History How Often Do You Have a Drink Containing Alcohol: Monthly or less - Substance Use History Substance History: No History of Abuse - Travel History Recent Travel in the [place] Within the Last 8 Weeks: No Recent Travel Out of the Country Within the Last 8 Weeks: No - Immunization History Tetanus Immunization: Unsure Hx Influenza Vaccine This Season: Yes Quality Measures - Psychiatric History Violence risk to others in the last 6 months: Low Violence risk to self in the last 6 months: Low - Substance Abuse History Drug or alcohol use in the past 12 months: See HPI - Patient Strengths Patient's strengths (minimum of 2): Verbal and communicative Medications and Allergies Active Medications: Active Medications Acetaminophen (Tylenol) 650 mg PO Q4H PRN PRN Reason: Pain 1-5 or Temp >101F Al Hydrox/Mg Hydrox/Simethicone (Mag-Al Plus Susp Liq) 30 ml PO Q6H PRN PRN Reason: DYSPEPSIA Al Hydroxide/Mg Hydroxide (Milk Of Magnesia Liq) 30 ml PO Q12H PRN PRN Reason: Mild Constipation Aspirin (Aspirin Chew) 81 mg PO DAILY AMANDA Last Admin: 07/11/18 09:45 Dose: 81 mg Dextrose (D50w Vial) 50 ml IV.PUSH UNSCH PRN PRN Reason: PER HYPOGLYCEMIA PROTOCOL Glucagon (Glucagon Inj) 1 mg OTHER PRN PRN PRN Reason: for Hypoglycemia Protocol Insulin Aspart (Novolog Insulin Correctional Sugar Inj) 0 unit SQ ACHS [facility]; Protocol Last Admin: 07/11/18 11:34 Dose: Not Given Melatonin (Melatonin) 5 mg PO HS PRN PRN Reason: INSOMNIA Metoprolol Succinate (Toprol Xl) 50 mg PO DAILY [facility] Last Admin: 07/11/18 09:46 Dose: 50 mg Nicotine (Habitrol 21 Mg Patch.24 Hr) 1 patch T-DERMAL DAILY PRN PRN Reason: Nicotine craving Nifedipine (Procardia Xl) 90 mg PO DAILY [facility] Last Admin: 07/11/18 09:45 Dose: 90 mg Pantoprazole Sodium (Protonix) 40 mg PO DAILY [facility] Last Admin: 07/11/18 09:46 Dose: 40 mg Patch Removal (Remove Old Patch) 1 each T-DERMAL DAILY [facility] Last Admin: 07/11/18 09:46 Dose: Not Given Pravastatin Sodium (Pravachol) 40 mg PO HS [facility] Last Admin: 07/10/18 22:39 Dose: 40 mg Ropinirole HCl (Requip) 4 mg PO BID [facility] Sucralfate (Carafate) 1 gm PO Q6HR [facility] Last Admin: 07/11/18 09:46 Dose: Not Given Trimethoprim/Sulfamethoxazole (Bactrim Ds) 1 tab PO Q12HR [facility] Stop: 07/13/18 09:01 Last Admin: 07/11/18 09:45 Dose: 1 tab Allergies Allergy/AdvReac Type Severity Reaction Status Date / Time haloperidol Allergy Severe MUSCLE Unverified 07/10/18 16:27 SPASMS Home Medications Medication Instructions Recorded Confirmed Type aspirin 81 mg PO DAILY 07/10/18 07/10/18 History ibuprofen 800 mg PO TID PRN 07/10/18 07/10/18 History metformin 500 mg PO BID 07/10/18 07/10/18 History metoprolol succinate 50 mg PO DAILY 07/10/18 07/10/18 History nifedipine 90 mg PO DAILY 07/10/18 07/10/18 History pantoprazole 40 mg PO DAILY 07/10/18 07/10/18 History ropinirole 8 mg PO DAILY 07/10/18 07/10/18 History simvastatin 10 mg PO BID 07/10/18 07/10/18 History sucralfate 1 g PO Q6H 07/10/18 07/10/18 History tramadol 50 mg PO Q6H PRN 07/10/18 07/10/18 History Results - Labs CBC & Chem 7: 07/10/18 16:35 07/10/18 16:35 Labs: Laboratory Results - last 24 hr 07/10/18 07/10/18 07/10/18 16:35 16:35 16:35 WBC 8.6 RBC 3.64 L Hgb 10.6 L Hct 31.1 L MCV 85.6 MCH 29.1 MCHC 34.0 RDW 15.3 Plt Count 284 MPV 8.4 Neut % (Auto) 70.8 H Lymph % (Auto) 18.9 [place] % (Auto) 8.5 H Eos % (Auto) 0.5 Baso % (Auto) 1.3 Neut # (Auto) 6.1 Lymph # (Auto) 1.6 [place] # (Auto) 0.7 Eos # (Auto) 0.0 Baso # (Auto) 0.1 WBC Differential . Differential Comment Auto diff final Sodium 143 Potassium 3.8 Chloride 111 H Carbon Dioxide 22.6 Anion Gap 9 BUN 22 H Creatinine 0.84 Estimated GFR 66 L POC Glucose Random Glucose 101 Calcium 9.3 Total Bilirubin 0.3 AST 11 L ALT 10 Alkaline Phosphatase 133 H Total Protein 7.8 Albumin 3.6 TSH 2.070 Urine Color Urine Clarity Urine pH Ur Specific [place] Urine Protein Urine Glucose (UA) Urine Ketones Urine Occult Blood Urine Nitrate Urine Bilirubin Urine Urobilinogen Ur Leukocyte Esterase Urine RBC Urine WBC Ur Squamous Epith Cells Urine Bacteria Micro UA Comment Ur Microscopic Review Urine Culture Comments Salicylates 1.9 L Urine Opiates Screen Acetaminophen Less than 2.0 L Ur Barbiturates Screen Ur Amphetamines Screen U Benzodiazepines Scrn Urine Cocaine Screen U Cannabinoids Screen Serum Alcohol Less than 3 07/10/18 07/10/18 07/10/18 19:10 19:10 22:36 WBC RBC Hgb Hct MCV MCH MCHC RDW Plt Count MPV Neut % (Auto) Lymph % (Auto) [place] % (Auto) Eos % (Auto) Baso % (Auto) Neut # (Auto) Lymph # (Auto) [place] # (Auto) Eos # (Auto) Baso # (Auto) WBC Differential Differential Comment Sodium Potassium Chloride Carbon Dioxide Anion Gap BUN Creatinine Estimated GFR POC Glucose 112 H Random Glucose Calcium Total Bilirubin AST ALT Alkaline Phosphatase Total Protein Albumin TSH Urine Color Straw Urine Clarity Hazy H Urine pH 6.0 Ur Specific [place] 1.008 Urine Protein Negative Urine Glucose (UA) Negative Urine Ketones Negative Urine Occult Blood Small H Urine Nitrate Negative Urine Bilirubin Negative Urine Urobilinogen Less than 2 Ur Leukocyte Esterase Moderate H Urine RBC 2 Urine WBC 13 H Ur Squamous Epith Cells 1 Urine Bacteria Rare H Micro UA Comment Culture indicated Ur Microscopic Review Not Reportable Urine Culture Comments Culture indicated Salicylates Urine Opiates Screen Neg Acetaminophen Ur Barbiturates Screen Neg Ur Amphetamines Screen Neg U Benzodiazepines Scrn Neg Urine Cocaine Screen Neg U Cannabinoids Screen Neg Serum Alcohol 07/11/18 11:04 WBC RBC Hgb Hct MCV MCH MCHC RDW Plt Count MPV Neut % (Auto) Lymph % (Auto) [place] % (Auto) Eos % (Auto) Baso % (Auto) Neut # (Auto) Lymph # (Auto) [place] # (Auto) Eos # (Auto) Baso # (Auto) WBC Differential Differential Comment Sodium Potassium Chloride Carbon Dioxide Anion Gap BUN Creatinine Estimated GFR POC Glucose 106 Random Glucose Calcium Total Bilirubin AST ALT Alkaline Phosphatase Total Protein Albumin TSH Urine Color Urine Clarity Urine pH Ur Specific [place] Urine Protein Urine Glucose (UA) Urine Ketones Urine Occult Blood Urine Nitrate Urine Bilirubin Urine Urobilinogen Ur Leukocyte Esterase Urine RBC Urine WBC Ur Squamous Epith Cells Urine Bacteria Micro UA Comment Ur Microscopic Review Urine Culture Comments Salicylates Urine Opiates Screen Acetaminophen Ur Barbiturates Screen Ur Amphetamines Screen U Benzodiazepines Scrn Urine Cocaine Screen U Cannabinoids Screen Serum Alcohol Exam Vital signs: Vital Signs 07/10/18 16:51 07/10/18 22:06 07/11/18 05:05 Temperature 99.1 F 97.9 F 98.1 F Pulse Rate 79 46 L 71 Respiratory Rate 18 18 19 Blood Pressure 145/66 H 156/69 H 148/73 H Pulse Oximetry 100 98 99 07/11/18 06:25 Temperature Pulse Rate 74 Respiratory Rate 16 Blood Pressure 159/85 H Pulse Oximetry 94 L Intake & Output 07/10/18 07/11/18 07/11/18 18:59 06:59 18:59 Intake Total 360 / 360 Balance 360 / 360 Weight 81.647 kg 71.9 kg Intake: Oral 360 / 360 Other: Weight On Admission 71.9 kg Narrative: Patient not noted to be in acute distress, no gross motor abnormalities but does have abnormal gait using a walker, no signs of tremor or EPS, no psychomotor agitation or retardation. - Constitutional no acute distress, cooperative Mental Status Examination Appearance: Appropriate Consciousness: Alert Orientation: Person, Date/Time Motor Activity: Abnormal gait (Uses walker) Speech: Unremarkable Language: Adequate Fund of Knowledge: Inadequate Attention and Concentration: Adequate Memory: Unremarkable Mood: Good Affect: Appropriate Thought Process & Associations: Tangential Thought Content: Bizarre thinking, Delusional Hallucination Type: Auditory Delusion Type: Bizarre, Paranoid, Other (Respiratory) Suicidal Ideation: No Suicidal Plan: No Suicidal Intention: No Homicidal Ideation: No Homicidal Plan: No Homicidal Intention: No Insight: Poor Judgment: Poor Assessment and Plan - Assessment (1) Unspecified psychosis Code(s): F29 - Unspecified psychosis not due to a substance or known physiological condition Status: Acute - Plan Plan: Estimated LOS: [] days Patient is a 73-year-old woman who carries a diagnosis of unspecified psychosis, depression as per patient, 2 previous psychiatric admissions, no previous suicide attempts, with a past medical history significant for diabetes and, who was brought in on the [place] act after patient contacted her primary care doctor stating that people are trying to kill her and endorsing auditory hallucinations saying they are going to kill her in the context of current UTI which patient was admitted for further psychiatric management. Patient at this time continues to endorse paranoid and persecutory delusions as well as auditory hallucinations which also may be related to degree of delirium secondary from current UTI but primary psychotic disorder must be ruled out. Patient would benefit from starting of quetiapine 25 mg p.o. twice daily for psychosis. We will continue to attempt to contact patient's brother to serve as health care surrogate and guardian advocate to consent for medications. We will continue medications for chronic medical illnesses, we will consult hospitalist for assistance in management for medical illnesses. We will continue to monitor mood and behavior. Patient will be admitted under involuntary hospitalization, second opinion requested. Discharge planning a progress. Justification for Continued Inpatient Stay: At risk of further decompensation a lower level care.
[2018-07-11 12:51] LABS: Baso # (Auto) 0.1 th/mm3 (0.0-0.2); Baso % (Auto) 1.2 % (0.0-2.0); Eos % (Auto) 0.5 % (0.0-4.0); Hematocrit 35.9 % (35.0-46.0); Hemoglobin 11.5 gm/dL (11.6-15.3); Lymph # (Auto) 1.2 th/mm3 (1.0-4.8); Lymph % (Auto) 13.9 % (9.0-44.0); Mean Corpuscular HGB Conc 31.9 % (32.0-36.0); Mean Corpuscular Hemoglobin 27.8 pg (27.0-34.0); Mean Corpuscular Volume 87.1 fL (80.0-100.0); Mean Platelet Volume 8.8 fL (7.0-11.0); Mono # (Auto) 0.7 th/mm3 (0.0-0.9); Mono % (Auto) 8.1 % (0.0-8.0); Neut # (Auto) 6.7 th/mm3 (1.8-7.7); Neut % (Auto) 76.3 % (16.0-70.0); Platelet Count 307 th/mm3 (150-450); Red Blood Count 4.12 mil/mm3 (4.00-5.30); Red Cell Distribution Width 15.6 % (11.6-17.2); White Blood Count 8.8 th/mm3 (4.0-11.0)
[2018-07-11] MEDS: QUEtiapine 25 MG Tablet PO SCH ×2 (13:08→20:48)
[2018-07-11 13:21] LABS: Albumin 3.6 g/dL (3.4-5.0); Anion Gap 9 meq/L (5-15); Aspartate Aminotransferase 16 U/L (15-37); Blood Urea Nitrogen 20 mg/dL (7-18); Calcium 9.4 mg/dL (8.5-10.1); Carbon Dioxide 28.5 meq/L (21.0-32.0); Chloride 106 meq/L (98-107); Cholesterol 145 mg/dL (120-200); Glomerular Filtration Rate 53 mL/min (>89); Glucose,Random 79 mg/dL (74-106); Potassium 3.7 meq/L (3.5-5.1); Sodium 143 meq/L (136-145)
[2018-07-11 13:25] LABS: Alanine Aminotransferase 11 U/L (10-53); Alkaline Phosphatase 145 U/L (45-117); Chol/HDL Ratio 1.92 Ratio; HDL Cholesterol 75.2 mg/dL (40.0-60.0); LDL Cholesterol,Calculated 52 mg/dL (0-99); Total Protein 8.1 g/dL (6.4-8.2); Triglycerides 91 mg/dL (42-150)
--- NOTE | 2018-07-11 14:11 | P.CONIM ---
History of Present Illness Primary Care Provider: Fred Anaya DO History of Present Illness: 73-year-old white female who was admitted under Gore act for psychosis. Medicine has been consulted for medical management. Patient reported hearing voices, contacted her physician's office and was instructed to contact the police who then escorted her to the hospital under Gore act. Patient reports taking medicines for hypertension, diabetes (which she says is well controlled) and hypercholesterolemia. Says she has a history of lung cancer with a lobectomy. Says that the main ongoing chronic symptom that bothers her is her hip pain and low back pain. Says that she is trying to participate in some sort of research program and would like to not take tramadol or any opiates for her pain. Review of Systems All other systems reviewed negative except as stated in HPI [facility] - History History Provided By: Patient, Medical Record - Medical History Medical History: Medical History (Last Reviewed 07/11/18 @ 14:09 by Oneal Delaney MD) Diabetes History of hysterectomy Lung cancer - Surgical History Surgical History: Surgical History (Last Updated 07/11/18 @ 14:09 by Oneal Delaney MD) History of dilatation and curettage History of hip surgery History of lobectomy of lung - Family History Family History: Family History (Last Updated 07/11/18 @ 14:10 by Oneal Delaney MD) Other CAD (coronary artery disease) - Tobacco History Second Hand Smoke Exposure: Yes Smoking Status: Never smoker - Alcohol History How Often Do You Have a Drink Containing Alcohol: Monthly or less - Substance Use History Substance History: No History of Abuse - Travel History Recent Travel in the [place] Within the Last 8 Weeks: No Recent Travel Out of the Country Within the Last 8 Weeks: No - Immunization History Tetanus Immunization: Unsure Hx Influenza Vaccine This Season: Yes Medications and Allergies Active Medications: Active Medications Acetaminophen (Tylenol) 650 mg PO Q4H PRN PRN Reason: Pain 1-5 or Temp >101F Al Hydrox/Mg Hydrox/Simethicone (Mag-Al Plus Susp Liq) 30 ml PO Q6H PRN PRN Reason: DYSPEPSIA Al Hydroxide/Mg Hydroxide (Milk Of Magnesia Liq) 30 ml PO Q12H PRN PRN Reason: Mild Constipation Aspirin (Aspirin Chew) 81 mg PO DAILY [facility] Last Admin: 07/11/18 09:45 Dose: 81 mg Dextrose (D50w Vial) 50 ml IV.PUSH UNSCH PRN PRN Reason: PER HYPOGLYCEMIA PROTOCOL Diphenhydramine HCl (Benadryl) 25 mg PO HS PRN PRN Reason: INSOMNIA Glucagon (Glucagon Inj) 1 mg OTHER PRN PRN PRN Reason: for Hypoglycemia Protocol Insulin Aspart (Novolog Insulin Correctional Sugar Inj) 0 unit SQ ACHS [facility]; Protocol Last Admin: 07/11/18 11:34 Dose: Not Given Lorazepam (Ativan) 0.5 mg PO Q12H PRN PRN Reason: ANXIETY Melatonin (Melatonin) 5 mg PO HS PRN PRN Reason: INSOMNIA Metoprolol Succinate (Toprol Xl) 50 mg PO DAILY [facility] Last Admin: 07/11/18 09:46 Dose: 50 mg Nicotine (Habitrol 21 Mg Patch.24 Hr) 1 patch T-DERMAL DAILY PRN PRN Reason: Nicotine craving Nifedipine (Procardia Xl) 90 mg PO DAILY [facility] Last Admin: 07/11/18 09:45 Dose: 90 mg Pantoprazole Sodium (Protonix) 40 mg PO DAILY [facility] Last Admin: 07/11/18 09:46 Dose: 40 mg Patch Removal (Remove Old Patch) 1 each T-DERMAL DAILY [facility] Last Admin: 07/11/18 09:46 Dose: Not Given Pravastatin Sodium (Pravachol) 40 mg PO HS [facility] Last Admin: 07/10/18 22:39 Dose: 40 mg Quetiapine Fumarate (Seroquel) 12.5 mg PO BID [facility] Last Admin: 07/11/18 13:08 Dose: Not Given Ropinirole HCl (Requip) 4 mg PO BID [facility] Sucralfate (Carafate) 1 gm PO Q6HR [facility] Last Admin: 07/11/18 13:08 Dose: 1 gm Trimethoprim/Sulfamethoxazole (Bactrim Ds) 1 tab PO Q12HR [facility] Stop: 07/13/18 09:01 Last Admin: 07/11/18 09:45 Dose: 1 tab Allergies Allergy/AdvReac Type Severity Reaction Status Date / Time haloperidol Allergy Severe MUSCLE Unverified 07/10/18 16:27 SPASMS Home Medications Medication Instructions Recorded Confirmed Type aspirin 81 mg PO DAILY 07/10/18 07/10/18 History ibuprofen 800 mg PO TID PRN 07/10/18 07/10/18 History metformin 500 mg PO BID 07/10/18 07/10/18 History metoprolol succinate 50 mg PO DAILY 07/10/18 07/10/18 History nifedipine 90 mg PO DAILY 07/10/18 07/10/18 History pantoprazole 40 mg PO DAILY 07/10/18 07/10/18 History ropinirole 8 mg PO DAILY 07/10/18 07/10/18 History simvastatin 10 mg PO BID 07/10/18 07/10/18 History sucralfate 1 g PO Q6H 07/10/18 07/10/18 History tramadol 50 mg PO Q6H PRN 07/10/18 07/10/18 History Exam Vital signs: Vital Signs 07/10/18 16:51 07/10/18 22:06 07/11/18 05:05 Temperature 99.1 F 97.9 F 98.1 F Pulse Rate 79 46 L 71 Respiratory Rate 18 18 19 Blood Pressure 145/66 H 156/69 H 148/73 H Pulse Oximetry 100 98 99 07/11/18 06:25 Temperature Pulse Rate 74 Respiratory Rate 16 Blood Pressure 159/85 H Pulse Oximetry 94 L Intake & Output 07/10/18 07/11/18 07/11/18 18:59 06:59 18:59 Intake Total 720 / 720 Balance 720 / 720 Weight 81.647 kg 71.9 kg Intake: Oral 720 / 720 Other: Weight On Admission 71.9 kg Narrative: VS: afebrile GENERAL: Elderly white female, well-nourished, awake and alert, no acute distress SKIN: Warm and dry. EYES: Pupils equal and round. No scleral icterus. No injection or drainage. Instructed her motions intact ENT: No nasal bleeding or discharge. Mucous membranes pink and moist. CARDIOVASCULAR: Regular rate and rhythm. no murmurs RESPIRATORY: No accessory muscle use. Clear to auscultation. Breath sounds equal bilaterally. GASTROINTESTINAL: Abdomen soft, non-tender, nondistended. Extremities: No clubbing, cyanosis, or edema. No obvious deformities. MUSCULOSKELETAL: adequate muscle bulk and tone for age and habitus NEUROLOGICAL: Awake and alert. No obvious cranial nerve deficits. No facial droop nor slurred speech noted. PSYCHIATRIC: Appropriate mood and affect; insight and judgment normal. Oriented 3 with intact insight. Results - Labs CBC & Chem 7: 07/11/18 11:47 07/11/18 11:47 Labs: Laboratory Results - last 24 hr 07/10/18 07/10/18 07/10/18 16:35 16:35 16:35 WBC 8.6 RBC 3.64 L Hgb 10.6 L Hct 31.1 L MCV 85.6 MCH 29.1 MCHC 34.0 RDW 15.3 Plt Count 284 MPV 8.4 Neut % (Auto) 70.8 H Lymph % (Auto) 18.9 [place] % (Auto) 8.5 H Eos % (Auto) 0.5 Baso % (Auto) 1.3 Neut # (Auto) 6.1 Lymph # (Auto) 1.6 [place] # (Auto) 0.7 Eos # (Auto) 0.0 Baso # (Auto) 0.1 WBC Differential . Differential Comment Auto diff final Sodium 143 Potassium 3.8 Chloride 111 H Carbon Dioxide 22.6 Anion Gap 9 BUN 22 H Creatinine 0.84 Estimated GFR 66 L POC Glucose Random Glucose 101 Calcium 9.3 Total Bilirubin 0.3 AST 11 L ALT 10 Alkaline Phosphatase 133 H Total Protein 7.8 Albumin 3.6 Triglycerides Cholesterol LDL Cholesterol, Calc HDL Cholesterol Cholesterol/HDL Ratio TSH 2.070 Urine Color Urine Clarity Urine pH Ur Specific [place] Urine Protein Urine Glucose (UA) Urine Ketones Urine Occult Blood Urine Nitrate Urine Bilirubin Urine Urobilinogen Ur Leukocyte Esterase Urine RBC Urine WBC Ur Squamous Epith Cells Urine Bacteria Micro UA Comment Ur Microscopic Review Urine Culture Comments Salicylates 1.9 L Urine Opiates Screen Acetaminophen Less than 2.0 L Ur Barbiturates Screen Ur Amphetamines Screen U Benzodiazepines Scrn Urine Cocaine Screen U Cannabinoids Screen Serum Alcohol Less than 3 07/10/18 07/10/18 07/10/18 19:10 19:10 22:36 WBC RBC Hgb Hct MCV MCH MCHC RDW Plt Count MPV Neut % (Auto) Lymph % (Auto) [place] % (Auto) Eos % (Auto) Baso % (Auto) Neut # (Auto) Lymph # (Auto) [place] # (Auto) Eos # (Auto) Baso # (Auto) WBC Differential Differential Comment Sodium Potassium Chloride Carbon Dioxide Anion Gap BUN Creatinine Estimated GFR POC Glucose 112 H Random Glucose Calcium Total Bilirubin AST ALT Alkaline Phosphatase Total Protein Albumin Triglycerides Cholesterol LDL Cholesterol, Calc HDL Cholesterol Cholesterol/HDL Ratio TSH Urine Color Straw Urine Clarity Hazy H Urine pH 6.0 Ur Specific [place] 1.008 Urine Protein Negative Urine Glucose (UA) Negative Urine Ketones Negative Urine Occult Blood Small H Urine Nitrate Negative Urine Bilirubin Negative Urine Urobilinogen Less than 2 Ur Leukocyte Esterase Moderate H Urine RBC 2 Urine WBC 13 H Ur Squamous Epith Cells 1 Urine Bacteria Rare H Micro UA Comment Culture indicated Ur Microscopic Review Not Reportable Urine Culture Comments Culture indicated Salicylates Urine Opiates Screen Neg Acetaminophen Ur Barbiturates Screen Neg Ur Amphetamines Screen Neg U Benzodiazepines Scrn Neg Urine Cocaine Screen Neg U Cannabinoids Screen Neg Serum Alcohol 07/11/18 07/11/18 07/11/18 11:04 11:47 11:47 WBC 8.8 RBC 4.12 Hgb 11.5 L Hct 35.9 MCV 87.1 MCH 27.8 MCHC 31.9 L RDW 15.6 Plt Count 307 MPV 8.8 Neut % (Auto) 76.3 H Lymph % (Auto) 13.9 [place] % (Auto) 8.1 H Eos % (Auto) 0.5 Baso % (Auto) 1.2 Neut # (Auto) 6.7 Lymph # (Auto) 1.2 [place] # (Auto) 0.7 Eos # (Auto) 0.0 Baso # (Auto) 0.1 WBC Differential . Differential Comment Auto diff final Sodium 143 Potassium 3.7 Chloride 106 Carbon Dioxide 28.5 Anion Gap 9 BUN 20 H Creatinine 1.02 H Estimated GFR 53 L POC Glucose 106 Random Glucose 79 Calcium 9.4 Total Bilirubin 0.4 AST 16 ALT 11 Alkaline Phosphatase 145 H Total Protein 8.1 Albumin 3.6 Triglycerides 91 Cholesterol 145 LDL Cholesterol, Calc 52 HDL Cholesterol 75.2 H Cholesterol/HDL Ratio 1.92 TSH Urine Color Urine Clarity Urine pH Ur Specific [place] Urine Protein Urine Glucose (UA) Urine Ketones Urine Occult Blood Urine Nitrate Urine Bilirubin Urine Urobilinogen Ur Leukocyte Esterase Urine RBC Urine WBC Ur Squamous Epith Cells Urine Bacteria Micro UA Comment Ur Microscopic Review Urine Culture Comments Salicylates Urine Opiates Screen Acetaminophen Ur Barbiturates Screen Ur Amphetamines Screen U Benzodiazepines Scrn Urine Cocaine Screen U Cannabinoids Screen Serum Alcohol Assessment and Plan - Plan 73-year-old white female admitted under Gore act for psychosis. Hospitalist consulted for medical management Psychosis -Psychiatry managing, on Seroquel - possibly 2/2 UTI, manage as below Possible UTI Bactrim DS, follow-up urine culture Hypertension Stable, continue home medicines of metoprolol and nifedipine Hypercholesterolemia continue home statin DM -continue home metformin Chronic arthritic pain in hip and low back Lidoderm patch -Hold off on ibuprofen for now Dyspepsia Continue home Protonix and Carafate
[2018-07-11 14:54] LABS: Hemoglobin A1c 5.7 % (4.3-6.0)
[2018-07-11] MEDS: Lidocaine 5% Patch T-DERMAL SCH (17:23)
[2018-07-11] MEDS: Acetaminophen 325 MG Tablet PO PRN (20:57)
[2018-07-12] MEDS: LORazepam 0.5 MG Tablet PO PRN ×2 (01:10→21:08)
[2018-07-12] MEDS: Acetaminophen 325 MG Tablet PO PRN ×2 (01:11→21:08)
[2018-07-12] MEDS: Sucralfate 1 GM Tablet PO SCH ×4 (04:32→17:22)
[2018-07-12] MEDS: Insulin NovoLOG Aspart Correctional Sugar Inj SQ SCH ×4 (08:40→21:07)
[2018-07-12] MEDS: Lidocaine 5% Patch T-DERMAL SCH (09:24)
--- NOTE | 2018-07-12 09:45 | P.PNPSY ---
Subjective Chief Complaint: Unspecified psychosis Remarks: Medical record reviewed and discussed with nursing staff. Follow-up with patient and nurse, Cheli SUMMERS. Patient is in day room eating breakfast. She is preoccupied with with Research Project that she volunteered to participate in. She states that she has an appointment on Friday and she wants to call them georgette they can pick her up. She continues to be internally stimulated and believes that people want to kill her . She currently has a UTI. Patient is cooperative and medication compliant. She is paranoid . She utilizes a walker. Review of Systems All other systems reviewed negative except as stated in HPI Mental Status Examination Appearance: Appropriate Consciousness: Alert Orientation: Person, Date/Time Motor Activity: Abnormal gait (Uses walker) Speech: Unremarkable Language: Adequate Fund of Knowledge: Inadequate Attention and Concentration: Adequate Memory: Unremarkable Mood: Good Affect: Appropriate Thought Process & Associations: Tangential Thought Content: Bizarre thinking, Delusional Hallucination Type: Auditory Delusion Type: Bizarre, Paranoid Suicidal Ideation: No Suicidal Plan: No Suicidal Intention: No Homicidal Ideation: No Homicidal Plan: No Homicidal Intention: No Insight: Poor Judgment: Poor Assessment and Plan - Assessment (1) Unspecified psychosis not due to a substance or known physiological condition Code(s): F29 - Unspecified psychosis not due to a substance or known physiological condition Status: Acute - Plan Plan: Patient will continue to be monitored and supported. Medication management under review by psychiatrist. Justification for Continued Inpatient Stay: Moving patient to a less restrictive environment may result in her decompensation.
[2018-07-12 09:49] LABS: Calcium 9.3 mg/dL (8.5-10.1); Carbon Dioxide 25.9 meq/L (21.0-32.0); Potassium 3.7 meq/L (3.5-5.1)
[2018-07-12] MEDS: QUEtiapine 25 MG Tablet PO SCH ×2 (10:08→20:32)
[2018-07-12] MEDS ORDERED: Sod Chloride 0.9% Inj 1,000 ML IV.SIG SCH (14:00)
--- NOTE | 2018-07-12 17:47 | P.PNIM ---
Subjective Interval history: Nursing denies any deterioration since last night. Patient herself denies any dysuria. Her urine culture is negative for any pathologic specimen. Renal function appears to have gotten acutely worse. Physical Exam Vital signs: Vital Signs 07/11/18 17:58 07/12/18 06:46 Temperature 98 F 97.8 F Pulse Rate 73 71 Respiratory Rate 18 16 Blood Pressure 124/64 137/70 Pulse Oximetry 96 97 Intake & Output 07/11/18 07/12/18 07/12/18 18:59 06:59 18:59 Intake Total 720 / 720 600 / 600 240 / 240 Balance 720 / 720 600 / 600 240 / 240 Intake: Oral 720 / 720 600 / 600 240 / 240 Other: # Voids 4 Narrative: Ambulating with walker with a gait favoring the left side secondary to hip pain on the right No acute distress Alert and oriented Results - Labs CBC & Chem 7: 07/11/18 11:47 07/12/18 19:18 Laboratory Results - last 24 hr 07/12/18 07/12/18 08:19 11:19 Sodium 138 Potassium 3.7 Chloride 104 Carbon Dioxide 25.9 Anion Gap 8 BUN 28 H Creatinine 1.23 H Estimated GFR 43 L POC Glucose 103 Random Glucose 157 H Calcium 9.3 Microbiology 07/10/18 19:10 Clean Catch Urine Urine Culture - Final 50-100,000 cfu/mL mixed ezequiel (probable contaminants ) Assessment and Plan - Plan 73-year-old white female admitted under Gore act for psychosis. Hospitalist consulted for medical management Psychosis -Psychiatry managing, on Seroquel - possibly 2/2 UTI, manage as below -Urine cultures negative, stopping antibiotics Hypertension Stable, continue home medicines of metoprolol and nifedipine Hypercholesterolemia continue home statin DM -continue home metformin Chronic arthritic pain in hip and low back Lidoderm patch -Hold off on ibuprofen for now Dyspepsia Continue home Protonix and Carafate Acute kidney injury Possibly secondary to mild dehydration, given 1 L normal saline bolus with repeat BMP in a.m. if renal function show stabilization we will sign off Please call with any further questions or concerns.
[2018-07-12 20:02] LABS: Calcium 8.6 mg/dL (8.5-10.1); Carbon Dioxide 22.8 meq/L (21.0-32.0); Potassium 4.2 meq/L (3.5-5.1)
[2018-07-13] MEDS: Sucralfate 1 GM Tablet PO SCH ×4 (04:44→17:06)
[2018-07-13] MEDS: Insulin NovoLOG Aspart Correctional Sugar Inj SQ SCH ×4 (08:16→22:16)
[2018-07-13] MEDS: QUEtiapine 25 MG Tablet PO SCH (08:41)
[2018-07-13] MEDS: Lidocaine 5% Patch T-DERMAL SCH (08:42)
--- NOTE | 2018-07-13 10:16 | P.CONPSY ---
Provisional Diagnosis Admission Date: July 10, 2018 19:53 [place].: Unspecified psychosis History of Present Illness Service: Psychiatry Consult date: 07/13/18 Requesting Physician: Jeremy Ramirez Reason for Consult: Second opinion petition Primary Care Provider: Fred Anaya DO History of Present Illness: Patient is a 73-year-old white female initially admitted by Dr. Ramirez under the Gore act. Gore act reviewed Dr. Ramirez's H&P reviewed. Dr. Ramirez assigned first opinion petition supporting [employer] act. Patient seen in her room with nurse Gisella, patient is alert fairly well oriented white female appears stated age giving is somewhat delusional story about people wanting to hurt her and kill her and spying on her. It appears these behaviors have occurred a few times through her adult life. She has had a psychiatric hospitalization for this in the past also. Thus at this time I feel patient does meet criteria under the [employer] act for involuntary psychiatric hospitalization thus I will cosign second opinion petition supporting [employer] act later James has started patient on Seroquel 12.5 mg twice daily continue her on that at the present time plus I have finished the initial psychiatric admission orders template [facility] - History History Provided By: Patient, Medical Record - Medical History Medical History: Medical History (Last Reviewed 07/11/18 @ 14:09 by Oneal Delaney MD) Diabetes History of hysterectomy Lung cancer - Surgical History Surgical History: Surgical History (Last Updated 07/11/18 @ 14:09 by Oneal Delaney MD) History of dilatation and curettage History of hip surgery History of lobectomy of lung - Family History Family History: Family History (Last Updated 07/11/18 @ 14:10 by Oneal Delaney MD) Other CAD (coronary artery disease) - Tobacco History Second Hand Smoke Exposure: Yes Smoking Status: Never smoker - Alcohol History How Often Do You Have a Drink Containing Alcohol: Monthly or less - Substance Use History Substance History: No History of Abuse - Travel History Recent Travel in the [place] Within the Last 8 Weeks: No Recent Travel Out of the Country Within the Last 8 Weeks: No - Immunization History Tetanus Immunization: Unsure Hx Influenza Vaccine This Season: Yes Medications and Allergies Active Medications: Active Medications Acetaminophen (Tylenol) 650 mg PO Q4H PRN PRN Reason: Pain 1-5 or Temp >101F Last Admin: 07/12/18 21:08 Dose: 650 mg Al Hydrox/Mg Hydrox/Simethicone (Mag-Al Plus Susp Liq) 30 ml PO Q6H PRN PRN Reason: DYSPEPSIA Al Hydroxide/Mg Hydroxide (Milk Of Magnesia Liq) 30 ml PO Q12H PRN PRN Reason: Mild Constipation Aspirin (Aspirin Chew) 81 mg PO DAILY [facility] Last Admin: 07/13/18 08:42 Dose: 81 mg Dextrose (D50w Vial) 50 ml IV.PUSH UNSCH PRN PRN Reason: PER HYPOGLYCEMIA PROTOCOL Diphenhydramine HCl (Benadryl) 25 mg PO HS PRN PRN Reason: INSOMNIA Glucagon (Glucagon Inj) 1 mg OTHER PRN PRN PRN Reason: for Hypoglycemia Protocol Sodium Chloride (Ns Inj) 1,000 mls @ 0 mls/hr IV.SIG BOLUS [facility] Insulin Aspart (Novolog Insulin Correctional Sugar Inj) 0 unit SQ ACHS [facility]; Protocol Last Admin: 07/13/18 08:16 Dose: Not Given Lidocaine HCl (Lidoderm 5% Patch.12 Hr) 1 patch T-DERMAL DAILY [facility] Last Admin: 07/13/18 08:42 Dose: 1 patch Lorazepam (Ativan) 0.5 mg PO Q12H PRN PRN Reason: ANXIETY Last Admin: 07/12/18 21:08 Dose: 0.5 mg Melatonin (Melatonin) 5 mg PO HS PRN PRN Reason: INSOMNIA Metoprolol Succinate (Toprol Xl) 50 mg PO DAILY [facility] Last Admin: 07/13/18 08:42 Dose: 50 mg Nicotine (Habitrol 21 Mg Patch.24 Hr) 1 patch T-DERMAL DAILY PRN PRN Reason: Nicotine craving Nifedipine (Procardia Xl) 90 mg PO DAILY [facility] Last Admin: 07/13/18 08:42 Dose: 90 mg Pantoprazole Sodium (Protonix) 40 mg PO DAILY [facility] Last Admin: 07/13/18 08:42 Dose: 40 mg Patch Removal (Remove Old Patch) 1 each T-DERMAL DAILY [facility] Last Admin: 07/13/18 08:46 Dose: 1 each Patch Removal (Remove Old Patch) 1 each T-DERMAL HS [facility] Last Admin: 07/12/18 20:33 Dose: Not Given Pravastatin Sodium (Pravachol) 40 mg PO HS [facility] Last Admin: 07/12/18 20:32 Dose: 40 mg Quetiapine Fumarate (Seroquel) 12.5 mg PO BID [facility] Last Admin: 07/13/18 08:41 Dose: 12.5 mg Ropinirole HCl (Requip) 4 mg PO BID [facility] Last Admin: 07/13/18 08:41 Dose: 4 mg Sucralfate (Carafate) 1 gm PO Q6HR [facility] Last Admin: 07/13/18 05:01 Dose: 1 gm Allergies Allergy/AdvReac Type Severity Reaction Status Date / Time haloperidol Allergy Severe MUSCLE Verified 07/11/18 16:44 SPASMS Home Medications Medication Instructions Recorded Confirmed Type aspirin 81 mg PO DAILY 07/10/18 07/10/18 History ibuprofen 800 mg PO TID PRN 07/10/18 07/10/18 History metformin 500 mg PO BID 07/10/18 07/10/18 History metoprolol succinate 50 mg PO DAILY 07/10/18 07/10/18 History nifedipine 90 mg PO DAILY 07/10/18 07/10/18 History pantoprazole 40 mg PO DAILY 07/10/18 07/10/18 History ropinirole 8 mg PO DAILY 07/10/18 07/10/18 History simvastatin 10 mg PO BID 07/10/18 07/10/18 History sucralfate 1 g PO Q6H 07/10/18 07/10/18 History tramadol 50 mg PO Q6H PRN 07/10/18 07/10/18 History Exam Vital signs: Vital Signs 07/12/18 18:00 07/13/18 06:00 Temperature 97.6 F 97.7 F Pulse Rate 79 73 Respiratory Rate 18 18 Blood Pressure 110/55 L 137/59 L Pulse Oximetry 95 100 Intake & Output 07/12/18 07/13/18 07/13/18 18:59 06:59 18:59 Intake Total 240 / 240 340 / 340 Balance 240 / 240 340 / 340 Weight 78.4 kg Intake: Oral 240 / 240 240 / 240 Oral Supplement 100 / 100 Other: # Voids 1 # Bowel Movements 0 Narrative: Patient was walked back to her room with myself and the nurse. Patient using a walker quite unsteady on her feet using the walker for support. She is otherwise in no acute distress there is no respiratory distress, no complaints of chest pain or abdominal pain Mental Status Examination Appearance: Appropriate Consciousness: Alert Orientation: Person, Date/Time Motor Activity: Abnormal gait (Uses walker) Speech: Unremarkable Language: Adequate Fund of Knowledge: Inadequate Attention and Concentration: Adequate (Fair) Memory: Unremarkable Mood: Other (Euthymic) Affect: Other (Good range and intensity) Thought Process & Associations: Tangential Thought Content: Bizarre thinking, Delusional Hallucination Type: Auditory Delusion Type: Bizarre, Paranoid Suicidal Ideation: No Suicidal Plan: No Suicidal Intention: No Homicidal Ideation: No Homicidal Plan: No Homicidal Intention: No Insight: Poor Judgment: Poor Assessment and Plan - Assessment (1) Unspecified psychosis Code(s): F29 - Unspecified psychosis not due to a substance or known physiological condition Status: Acute - Plan Plan: At this time patient remains psychotic delusional, appears this may have occurred with her a few times over the phone number of years. We will continue medications no change Justification for Continued Inpatient Stay: At this time patient would decompensate a place to a lower level of care Discharge Planning: Possible to return home to family Request Healthcare Surrogate/Guardian Advocate?: No (1) Unspecified psychosis Qualifiers: Psychosis type: brief psychotic disorder Qualified Code(s): F23 - Brief psychotic disorder
[2018-07-13] MEDS ORDERED: Sod Chloride 0.9% Inj 1,000 ML IV.SIG SCH (13:30)
--- NOTE | 2018-07-13 15:17 | P.PNIM ---
Physical Exam Vital signs: Vital Signs 07/12/18 18:00 07/13/18 06:00 Temperature 97.6 F 97.7 F Pulse Rate 79 73 Respiratory Rate 18 18 Blood Pressure 110/55 L 137/59 L Pulse Oximetry 95 100 Intake & Output 07/12/18 07/13/18 07/13/18 18:59 06:59 18:59 Intake Total 240 / 240 340 / 340 Balance 240 / 240 340 / 340 Weight 78.4 kg Intake: Oral 240 / 240 240 / 240 Oral Supplement 100 / 100 Other: # Voids 1 # Bowel Movements 0 Results - Labs CBC & Chem 7: 07/11/18 11:47 07/12/18 19:18 Laboratory Results - last 24 hr 07/12/18 07/13/18 19:18 11:07 Sodium 138 Potassium 4.2 Chloride 107 Carbon Dioxide 22.8 Anion Gap 8 BUN 35 H Creatinine 1.39 H Estimated GFR 37 L POC Glucose 115 H Random Glucose 127 H Calcium 8.6 Microbiology 07/10/18 19:10 Clean Catch Urine Urine Culture - Final 50-100,000 cfu/mL mixed ezequiel (probable contaminants ) Assessment and Plan - Plan 73-year-old white female admitted under Gore act for psychosis. Hospitalist consulted for medical management Psychosis -Psychiatry managing, on Seroquel - possibly 2/2 UTI, manage as below -Urine cultures negative, stopping antibiotics Hypertension Stable, continue home medicines of metoprolol and nifedipine Hypercholesterolemia continue home statin DM -continue home metformin Chronic arthritic pain in hip and low back Lidoderm patch -Hold off on ibuprofen for now Dyspepsia Continue home Protonix and Carafate Acute kidney injury Possibly secondary to mild dehydration, given 1 L normal saline bolus with repeat BMP in a.m. if renal function show stabilization we will sign off Please call with any further questions or concerns.
--- NOTE | 2018-07-13 17:16 | P.PN ---
Subjective Interval history: follow up for TERENCE: pt. sitting up eating dinner, good appetite. Voiding okay. States she is probably not drinking enough water as she forgets. Usually at home , she keeps a thermos with water. Denies any N/V/D. No prior hx of kidney disease. No CP, no sob, no fever. Physical Exam Vital signs: Vital Signs 07/12/18 18:00 07/13/18 06:00 Temperature 97.6 F 97.7 F Pulse Rate 79 73 Respiratory Rate 18 18 Blood Pressure 110/55 L 137/59 L Pulse Oximetry 95 100 Intake & Output 07/12/18 07/13/18 07/13/18 18:59 06:59 18:59 Intake Total 240 / 240 340 / 340 Balance 240 / 240 340 / 340 Weight 78.4 kg Intake: Oral 240 / 240 240 / 240 Oral Supplement 100 / 100 Other: # Voids 1 # Bowel Movements 0 Narrative: GENERAL: Well-nourished, well-developed patient in no apparent distress. SKIN: Warm and dry. HEAD: Atraumatic. Normocephalic. EYES: Pupils equal and round. No scleral icterus. No injection or drainage. ENT: No nasal bleeding or discharge. Mucous membranes pink and moist. NECK: Trachea midline. No JVD. CARDIOVASCULAR: Regular rate and rhythm. RESPIRATORY: No accessory muscle use. Clear to auscultation. Breath sounds equal bilaterally. GASTROINTESTINAL: Abdomen soft, non-tender, nondistended. Hepatic and splenic margins not palpable. MUSCULOSKELETAL: Extremities without clubbing, cyanosis. Bilateral lower extremity with trace pretibial edema, right greater than left. No obvious deformities. NEUROLOGICAL: Awake, alert oriented 3. No focal deficits PSYCHIATRIC: Appropriate mood and affect Results - Labs CBC & Chem 7: 07/11/18 11:47 07/12/18 19:18 Laboratory Results - last 24 hr 07/12/18 07/13/18 07/13/18 19:18 11:07 16:05 Sodium 138 Potassium 4.2 Chloride 107 Carbon Dioxide 22.8 Anion Gap 8 BUN 35 H Creatinine 1.39 H Estimated GFR 37 L POC Glucose 115 H 110 Random Glucose 127 H Calcium 8.6 Assessment and Plan - Plan 73-year-old white female admitted under Gore act for psychosis. Hospitalist consulted for medical management-acute kidney injury Psychosis -Psychiatry managing, on Seroquel - possibly 2/2 UTI, manage as below -Urine cultures negative, stopping antibiotics Hypertension Stable, continue home medicines of metoprolol and nifedipine Hypercholesterolemia continue home statin DM -Accu-Cheks before meals and at bedtime with insulin therapy Hold metformin due to elevated creatinine. Chronic arthritic pain in hip and low back Lidoderm patch -Hold off on ibuprofen for now Dyspepsia Continue home Protonix and Carafate Acute kidney injury Possibly secondary to mild dehydration -given 1 L normal saline bolus 07/12,repeat creat worst -Tx to med psych and start NS @ 84/hr -avoid nephrotoxic agents -Holding Metformin and ibuprofen -Follow BMP in the morning Discussed with RN, patient.
[2018-07-13] MEDS: Sod Chloride 0.9% Inj 1,000 ML IV.CONT SCH (22:11)
[2018-07-14] MEDS: Sucralfate 1 GM Tablet PO SCH ×5 (02:07→18:41)
[2018-07-14] MEDS: Sod Chloride 0.9% Inj 1,000 ML IV.CONT SCH ×3 (02:08→18:40)
[2018-07-14 09:35] LABS: Calcium 8.9 mg/dL (8.5-10.1); Carbon Dioxide 22.8 meq/L (21.0-32.0); Potassium 4.1 meq/L (3.5-5.1)
[2018-07-14] MEDS: Insulin NovoLOG Aspart Correctional Sugar Inj SQ SCH ×4 (09:41→21:35)
[2018-07-14] MEDS: Lidocaine 5% Patch T-DERMAL SCH (13:02)
--- NOTE | 2018-07-14 15:23 | P.PNPSY ---
Subjective Chief Complaint: Unspecified psychosis Remarks: Patient seen sitting on the side of her bed with nurse Mathieu, chart reviewed, patient compliant medications. Patient calm focused more appropriate with better eye contact. Her affect has improved also. Delusions seem to be softening and tapering at the present time for now continue treatment Review of Systems All other systems reviewed negative except as stated in HPI Mental Status Examination Appearance: Appropriate Consciousness: Alert Orientation: Person, Date/Time Motor Activity: Abnormal gait (Uses walker) Speech: Unremarkable Language: Adequate Fund of Knowledge: Inadequate Attention and Concentration: Adequate (Fair) Memory: Unremarkable Mood: Other (Euthymic) Affect: Other (Good range and intensity) Thought Process & Associations: Tangential (Improved) Thought Content: Bizarre thinking (Decreasing), Delusional (Decreasing) Hallucination Type: Auditory Delusion Type: Bizarre (Decreasing), Paranoid (Decreasing) Suicidal Ideation: No Suicidal Plan: No Suicidal Intention: No Homicidal Ideation: No Homicidal Plan: No Homicidal Intention: No Insight: Poor Judgment: Poor Assessment and Plan - Assessment (1) Unspecified psychosis Code(s): F29 - Unspecified psychosis not due to a substance or known physiological condition Status: Acute - Plan Plan: Patient's psychosis is improving. Her delusions and paranoia have softened. She is compliant with medication. 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
--- NOTE | 2018-07-14 18:30 | P.CONFP ---
History of Present Illness Service: primary care Consult date: 07/14/18 (medical management) Reason for Consult: terence Primary Care Provider: Fred Anaya DO History of Present Illness: pt admitted to psych unit several days ago began to develop rise in creatinine and drop in sodium she has been transferred to med psych and we were consulted for med management as we are her [place] [facility] primary physicians Review of Systems Constitutional: Reports weakness, Reports weight loss Musculoskeletal: Reports joint pain Comments: left hip pain Psychiatric: Reports hearing things others do not hear, Reports mood swings PMFSH - History History Provided By: Patient, Medical Record - Medical History Medical History: Medical History (Last Reviewed 07/13/18 @ 11:33 by Mitchell Dee) Diabetes History of hysterectomy Lung cancer - Surgical History Surgical History: Surgical History (Last Reviewed 07/13/18 @ 11:33 by Mitchell Dee) History of dilatation and curettage History of hip surgery History of lobectomy of lung - Family History Family History: Family History (Last Updated 07/11/18 @ 14:10 by Oneal Delaney MD) Other CAD (coronary artery disease) - Tobacco History Second Hand Smoke Exposure: Yes Smoking Status: Never smoker - Alcohol History How Often Do You Have a Drink Containing Alcohol: Monthly or less - Substance Use History Substance History: No History of Abuse - Travel History Recent Travel in the [place] Within the Last 8 Weeks: No Recent Travel Out of the Country Within the Last 8 Weeks: No - Immunization History Tetanus Immunization: Unsure Hx Influenza Vaccine This Season: Yes Medications and Allergies Active Medications: Active Medications Acetaminophen (Tylenol) 650 mg PO Q4H PRN PRN Reason: Pain 1-5 or Temp >101F Last Admin: 07/12/18 21:08 Dose: 650 mg Al Hydrox/Mg Hydrox/Simethicone (Mag-Al Plus Susp Liq) 30 ml PO Q6H PRN PRN Reason: DYSPEPSIA Al Hydroxide/Mg Hydroxide (Milk Of Magnesia Liq) 30 ml PO Q12H PRN PRN Reason: Mild Constipation Aspirin (Aspirin Chew) 81 mg PO DAILY AMANDA Last Admin: 07/14/18 09:42 Dose: 81 mg Dextrose (D50w Vial) 50 ml IV.PUSH UNSCH PRN PRN Reason: PER HYPOGLYCEMIA PROTOCOL Diphenhydramine HCl (Benadryl) 50 mg PO HS PRN PRN Reason: INSOMNIA Glucagon (Glucagon Inj) 1 mg OTHER PRN PRN PRN Reason: for Hypoglycemia Protocol Hydroxyzine HCl (Atarax) 50 mg PO Q6H PRN PRN Reason: ANXIETY Sodium Chloride (Ns Inj) 1,000 mls @ 0 mls/hr IV.SIG BOLUS [facility] Last Admin: 07/12/18 17:00 Dose: 1,000 mls/hr Sodium Chloride (Ns Inj) 1,000 mls @ 84 mls/hr IV.CONT .[id number] [facility] Last Admin: 07/14/18 02:52 Dose: Not Given Sodium Chloride (Ns Inj) 1,000 mls @ 0 mls/hr IV.SIG BOLUS [facility] Insulin Aspart (Novolog Insulin Correctional Sugar Inj) 0 unit SQ ACHS [facility]; Protocol Last Admin: 07/14/18 13:04 Dose: Not Given Lidocaine HCl (Lidoderm 5% Patch.12 Hr) 1 patch T-DERMAL DAILY [facility] Last Admin: 07/14/18 13:02 Dose: 1 patch Melatonin (Melatonin) 5 mg PO HS PRN PRN Reason: INSOMNIA Metoprolol Succinate (Toprol Xl) 50 mg PO DAILY [facility] Last Admin: 07/14/18 12:42 Dose: 50 mg Nicotine (Habitrol 21 Mg Patch.24 Hr) 1 patch T-DERMAL DAILY PRN PRN Reason: Nicotine craving Nifedipine (Procardia Xl) 90 mg PO DAILY [facility] Last Admin: 07/14/18 09:42 Dose: 90 mg Pantoprazole Sodium (Protonix) 40 mg PO DAILY [facility] Last Admin: 07/14/18 09:42 Dose: 40 mg Patch Removal (Remove Old Patch) 1 each T-DERMAL DAILY [facility] Last Admin: 07/14/18 13:03 Dose: Not Given Patch Removal (Remove Old Patch) 1 each T-DERMAL HS [facility] Last Admin: 07/13/18 22:16 Dose: Not Given Pravastatin Sodium (Pravachol) 40 mg PO HS [facility] Last Admin: 07/13/18 21:00 Dose: 40 mg Quetiapine Fumarate (Seroquel) 12.5 mg PO BID [facility] Last Admin: 07/13/18 08:41 Dose: 12.5 mg Ropinirole HCl (Requip) 4 mg PO BID [facility] Last Admin: 07/14/18 09:42 Dose: 4 mg Sucralfate (Carafate) 1 gm PO Q6HR [facility] Last Admin: 07/14/18 13:04 Dose: 1 gm Allergies Allergy/AdvReac Type Severity Reaction Status Date / Time haloperidol Allergy Severe MUSCLE Verified 07/11/18 16:44 SPASMS Home Medications Medication Instructions Recorded Confirmed Type aspirin 81 mg PO DAILY 07/10/18 07/10/18 History ibuprofen 800 mg PO TID PRN 07/10/18 07/10/18 History metformin 500 mg PO BID 07/10/18 07/10/18 History metoprolol succinate 50 mg PO DAILY 07/10/18 07/10/18 History nifedipine 90 mg PO DAILY 07/10/18 07/10/18 History pantoprazole 40 mg PO DAILY 07/10/18 07/10/18 History ropinirole 8 mg PO DAILY 07/10/18 07/10/18 History simvastatin 10 mg PO BID 07/10/18 07/10/18 History sucralfate 1 g PO Q6H 07/10/18 07/10/18 History tramadol 50 mg PO Q6H PRN 07/10/18 07/10/18 History Exam Vital signs: Vital Signs 07/13/18 18:40 07/14/18 06:21 07/14/18 17:50 Temperature 98.5 F 98.3 F 97.8 F Pulse Rate 74 75 78 Respiratory Rate 18 16 20 Blood Pressure 150/66 H 165/80 H 131/84 Pulse Oximetry 100 99 Intake & Output 07/13/18 07/14/18 07/14/18 18:59 06:59 18:59 Intake Total 240 / 240 1680 / 1680 Balance 240 / 240 1680 / 1680 Intake: Oral 240 / 240 1680 / 1680 Other: # Voids 2 - Constitutional no acute distress - Routine HEENT Exam Head: Present: normocephalic, atraumatic Eye: Present: EOMI, PERRL ENT: Present: mucous membranes moist - Routine Neck Exam Present: supple - Routine Respiratory Exam Present: CTA bilaterally - Routine Cardiovascular Exam Present: RRR - Routine Abdominal Exam Present: soft, normoactive bowel sounds - Routine Extremities Exam Comments: left hip pain Results - Labs Result diagrams: 07/11/18 11:47 07/14/18 07:45 Abnormal lab results 07/14/18 07/14/18 Range/Units 07:43 07:45 Sodium 132 L (136-145) meq/L BUN 27 H (7-18) mg/dL Estimated GFR 66 L (>89) mL/min POC Glucose 114 H (68-110) mg/dl BMP 07/14/18 07:45 Sodium 132 L Potassium 4.1 Chloride 100 Carbon Dioxide 22.8 BUN 27 H Creatinine 0.84 Calcium 8.9 Assessment and Plan - Assessment (1) TERENCE (acute kidney injury) Code(s): N17.9 - Acute kidney failure, unspecified Status: Acute Plan: encourage fluids and salt ck lab again in am change diet to encourage salt avoid nephrotoxic agents renal consult if no improovement (2) Hip pain Code(s): M25.559 - Pain in unspecified hip Status: Acute Plan: ronni john has been seen by dr mack reportedly has loosening hardware - Assessment and Plan Discussed Condition With: patient and nursing
[2018-07-14 21:04] LABS: Free T4 (Free Thyroxine) 0.81 ng/dL (0.76-1.46); Triiodothyronine (T3) Free 2.01 pg/mL (2.18-3.98)
[2018-07-14 21:16] LABS: Calcium 9.1 mg/dL (8.5-10.1); Carbon Dioxide 21.9 meq/L (21.0-32.0); Potassium 4.6 meq/L (3.5-5.1)
--- NOTE | 2018-07-14 21:27 | XR ---
EXAM DATE: 07/14/2018 9:18 PM EDT AGE/SEX: 73 years / Female INDICATIONS: Left hip pain. CLINICAL DATA: This is the patient's initial encounter. Patient reports that signs and symptoms have been present for > 1 year and indicates a pain score of 5/10. MEDICAL/SURGICAL HISTORY: Carcinoma, lung. Diabetes. Hysterectomy. Bilateral hip replacements. Lobectomy. COMPARISON: TLI, XR HIP W/ AP PELVIS, BILATERAL, 04/21/2015. . FINDINGS: Patient has a left total hip arthroplasty. No fracture or subluxation. There is chronic loosening of the femoral component and the associated bone resorption is considerably worse in the interim and wit h associated cortical thinning, probably a considerable risk for impending fracture. A mild varus def ormity has developed between the femoral component and the bone. The cement is fragmented. The left a cetabular component is within normal limits. The bony pelvis is intact and has normal morphology. Visualized right hip arthroplasty appears intact and without evidence of loosening. 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 Associated varus defor mity and marked bone resorption and cortical thinning but no acute fracture demonstrated. Electronically signed by: Tre Rodney MD 07/14/2018 9:25 PM EDT
[2018-07-15] MEDS: Sucralfate 1 GM Tablet PO SCH ×5 (01:00→23:46)
[2018-07-15] MEDS: Sod Chloride 0.9% Inj 1,000 ML IV.CONT SCH (01:36)
--- NOTE | 2018-07-15 09:10 | P.PNFP ---
Subjective Interval history: Slept well Denies any Cp, SOB She voices IV came out, unable to restart She states she has been drinking lots of water Results - Labs Result diagrams: 07/11/18 11:47 07/14/18 20:22 Abnormal lab results 07/14/18 07/14/18 Range/Units 07:45 20:22 Sodium 132 L 135 L (136-145) meq/L BUN 27 H 28 H (7-18) mg/dL Estimated GFR 66 L 56 L (>89) mL/min Free T3 2.01 L (2.18-3.98) pg/mL BMP 07/14/18 07/14/18 07:45 20:22 Sodium 132 L 135 L Potassium 4.1 4.6 Chloride 100 103 Carbon Dioxide 22.8 21.9 BUN 27 H 28 H Creatinine 0.84 0.97 Calcium 8.9 9.1 - Imaging Impressions Hip X-Ray 07/14/18 00:00 CONCLUSION: 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 Associated varus deformity and marked bone resorption and cortical thinning but no acute fracture demonstrated. Physical Exam Vital signs: Vital Signs 07/14/18 17:50 07/15/18 06:00 Temperature 97.8 F 97.6 F Pulse Rate 78 82 Respiratory Rate 20 18 Blood Pressure 131/84 144/67 H Pulse Oximetry 99 99 Intake & Output 07/14/18 07/15/18 07/15/18 18:59 06:59 18:59 Intake Total 1680 / 1680 580 / 580 Balance 1680 / 1680 580 / 580 Weight 71.2 kg Intake: Oral 1680 / 1680 480 / 480 Oral Supplement 100 / 100 Other: # Voids 2 2 - Constitutional no acute distress - Routine HEENT Exam Eye: Present: PERRL ENT: Present: mucous membranes moist - Routine Neck Exam Present: supple - Routine Respiratory Exam Present: CTA bilaterally - Routine Cardiovascular Exam Present: S1, S2 - Routine Abdominal Exam Present: soft, normoactive bowel sounds - Routine Skin Exam Present: dry, warm - Routine Neurological Exam Present: alert - Routine Psychiatric Exam Present: cooperative Assessment and Plan - Assessment (1) TERENCE (acute kidney injury) Code(s): N17.9 - Acute kidney failure, unspecified Status: Acute Plan: encourage fluids and salt ck lab again in am change diet to encourage salt avoid nephrotoxic agents renal consult if no improovement (2) Hip pain Code(s): M25.559 - Pain in unspecified hip Status: Acute Plan: ronni alvaro has been seen by dr mack reportedly has loosening hardware - Assessment and Plan Labs this am, she has increased fluids.
[2018-07-15] MEDS: Lidocaine 5% Patch T-DERMAL SCH (09:22)
[2018-07-15] MEDS: Insulin NovoLOG Aspart Correctional Sugar Inj SQ SCH ×4 (09:24→22:08)
[2018-07-15 11:53] LABS: Calcium 9.1 mg/dL (8.5-10.1); Carbon Dioxide 21.9 meq/L (21.0-32.0); Potassium 4.2 meq/L (3.5-5.1)
--- NOTE | 2018-07-15 16:53 | P.PNPSY ---
Subjective Chief Complaint: Unspecified psychosis Remarks: Patient seen in her room with nurse Mathieu, chart reviewed, patient compliant medicine patient calm cooperative pleasant with me her delusions are slowly resolving. She is compliant with the medications. She denies suicidality. At this time patient longer meets Gore criteria lift Gore act allow patient to sign voluntary Review of Systems All other systems reviewed negative except as stated in HPI Mental Status Examination Appearance: Appropriate Consciousness: Alert Orientation: Person, Date/Time Motor Activity: Abnormal gait (Uses walker) Speech: Unremarkable Language: Adequate Fund of Knowledge: Inadequate Attention and Concentration: Adequate (Fair) Memory: Unremarkable Mood: Other (Euthymic) Affect: Other (Good range and intensity) Thought Process & Associations: Tangential (Improved) Thought Content: Bizarre thinking (Decreasing), Delusional (Decreasing) Hallucination Type: Auditory Delusion Type: Bizarre (Decreasing), Paranoid (Decreasing) Suicidal Ideation: No Suicidal Plan: No Suicidal Intention: No Homicidal Ideation: No Homicidal Plan: No Homicidal Intention: No Insight: Poor Judgment: Poor Assessment and Plan - Assessment (1) Unspecified psychosis Code(s): F29 - Unspecified psychosis not due to a substance or known physiological condition Status: Acute - Plan Plan: Patient's psychosis slowly resolving, compliant medications, will lift Gore act allow patient to sign voluntary Justification for Continued Inpatient Stay: At this time patient would decompensate a place to a lower level of care Discharge Planning: To be determined Request Healthcare Surrogate/Guardian Advocate?: No (1) Unspecified psychosis Qualifiers: Psychosis type: brief psychotic disorder Qualified Code(s): F23 - Brief psychotic disorder
[2018-07-16] MEDS: Sucralfate 1 GM Tablet PO SCH ×4 (05:40→23:24)
[2018-07-16 06:11] LABS: Carbon Dioxide 23.3 meq/L (21.0-32.0); Potassium 3.9 meq/L (3.5-5.1)
[2018-07-16] MEDS: Insulin NovoLOG Aspart Correctional Sugar Inj SQ SCH ×2 (08:54→16:01)
[2018-07-16] MEDS: Lidocaine 5% Patch T-DERMAL SCH (08:54)
--- NOTE | 2018-07-16 09:43 | P.PNFP ---
Subjective Interval history: Slept well Denies Cp, SOB pleasant answering appropriately Results - Labs Result diagrams: 07/11/18 11:47 07/16/18 05:07 Abnormal lab results 07/15/18 07/15/18 07/16/18 Range/Units 11:03 22:05 05:07 Chloride 110 H (98-107) meq/L BUN 24 H 29 H (7-18) mg/dL Estimated GFR 67 L 69 L (>89) mL/min POC Glucose 131 H (68-110) mg/dl Random Glucose 122 H (74-106) mg/dL BMP 07/15/18 07/16/18 11:03 05:07 Sodium 137 144 Potassium 4.2 3.9 Chloride 104 110 H Carbon Dioxide 21.9 23.3 BUN 24 H 29 H Creatinine 0.83 0.81 Calcium 9.1 9.0 Physical Exam Vital signs: Vital Signs 07/16/18 06:48 Temperature 99.7 F H Respiratory Rate 17 Blood Pressure 124/66 Pulse Oximetry 97 Intake & Output 07/15/18 07/16/18 07/16/18 18:59 06:59 18:59 Intake Total 360 / 360 720 / 720 Balance 360 / 360 720 / 720 Weight 73.2 kg Intake: Oral 360 / 360 720 / 720 Other: # Voids 1 - Constitutional no acute distress - Routine HEENT Exam Eye: Present: PERRL ENT: Present: mucous membranes moist - Routine Neck Exam Present: supple - Routine Respiratory Exam Present: CTA bilaterally - Routine Cardiovascular Exam Present: S1, S2 - Routine Abdominal Exam Present: soft, normoactive bowel sounds - Routine Skin Exam Present: intact, dry, warm - Routine Neurological Exam Present: alert, oriented X3 - Routine Psychiatric Exam Present: cooperative Assessment and Plan - Assessment (1) TERENCE (acute kidney injury) Code(s): N17.9 - Acute kidney failure, unspecified Status: Acute Plan: Na normal, renal functions improved (2) Hip pain Code(s): M25.559 - Pain in unspecified hip Status: Acute Plan: ronni john has been seen by dr mack reportedly has loosening hardware - Assessment and Plan TERENCE resolved, Will follow up after DC Ok to dc from Medical standpoint.
--- NOTE | 2018-07-16 12:18 | P.TTN ---
- Patient Problems Problems: 1. Discharge planning 2. Medication compliance 3. Knowledge deficit 4. Lack of coping skills - Progress Toward Goals Provider Present: Dr. Sandee Perry Provider Input: Patient shcduled for court tomorrow, may be in need of therapy and home health upon discharge Psychiatric Counselors Present: Other Psychiatric Therapist Input: Johanna- patient ois cooperative, lives alone may be able to return home with home health Group Spec/RT/OT/BRICEÑO Present: Sendy Brooke, GPS, Semaj Husain, OT Group Spec/RT/OT/BRICEÑO Input: Patient has OT , MOD independence, uses walker - Documentation Teaching Recipient: Patient
--- NOTE | 2018-07-16 14:22 | P.PNPSY ---
Subjective Chief Complaint: Unspecified psychosis Remarks: Patient is seen in her room with floor staff, chart reviewed, patient compliant medication. Patient remains quite paranoid and delusional still feels a people are conspiring against her and out to hurt her. Though she knows nobody believes her she believes. We will increase Seroquel to 25 mg twice daily Review of Systems All other systems reviewed negative except as stated in HPI Mental Status Examination Appearance: Appropriate Consciousness: Alert Orientation: Person, Date/Time Motor Activity: Abnormal gait (Uses walker) Speech: Unremarkable Language: Adequate Fund of Knowledge: Inadequate Attention and Concentration: Adequate (Fair) Memory: Unremarkable Mood: Other (Euthymic) Affect: Other (Good range and intensity) Thought Process & Associations: Tangential (Improved) Thought Content: Bizarre thinking (Decreasing), Delusional (Decreasing) Hallucination Type: Auditory Delusion Type: Bizarre (Decreasing), Paranoid (Decreasing) Suicidal Ideation: No Suicidal Plan: No Suicidal Intention: No Homicidal Ideation: No Homicidal Plan: No Homicidal Intention: No Insight: Poor Judgment: Poor Assessment and Plan - Assessment (1) Unspecified psychosis Code(s): F29 - Unspecified psychosis not due to a substance or known physiological condition Status: Acute - Plan Plan: Patient continues quite delusional and paranoid we will increase Seroquel 25 mg twice daily Justification for Continued Inpatient Stay: At this time patient would decompensate a place to a lower level of care Discharge Planning: To be determined Request Healthcare Surrogate/Guardian Advocate?: No (1) Unspecified psychosis Qualifiers: Psychosis type: brief psychotic disorder Qualified Code(s): F23 - Brief psychotic disorder
[2018-07-16] MEDS: QUEtiapine 25 MG Tablet PO SCH ×2 (15:12→20:45)
[2018-07-16] MEDS: Acetaminophen 325 MG Tablet PO PRN (23:24)
[2018-07-17] MEDS: Insulin NovoLOG Aspart Correctional Sugar Inj SQ SCH ×2 (04:31→08:40)
[2018-07-17] MEDS: Sucralfate 1 GM Tablet PO SCH ×4 (06:28→23:53)
[2018-07-17] MEDS: Lidocaine 5% Patch T-DERMAL SCH (08:56)
[2018-07-17] MEDS: QUEtiapine 25 MG Tablet PO SCH ×2 (08:56→20:30)
--- NOTE | 2018-07-17 09:56 | P.PNPSY ---
Subjective Chief Complaint: Unspecified psychosis Remarks: Patient seen in day room with nurse Jennifer, chart reviewed, patient compliant medication. Patient remains calm somewhat withdrawn though responsive with me. She is quite guarded. When asked if she had anything bothering her she denied it though she became somewhat more vigilant. I feel her delusions persist though she is being quite about it for fear of repercussions. She does deny suicidality homicidality Review of Systems All other systems reviewed negative except as stated in HPI Mental Status Examination Appearance: Appropriate Consciousness: Alert Orientation: Person, Date/Time Motor Activity: Abnormal gait (Uses walker) Speech: Unremarkable Language: Adequate Fund of Knowledge: Inadequate Attention and Concentration: Adequate (Fair) Memory: Unremarkable Mood: Other (Euthymic) Affect: Other (Good range and intensity) Thought Process & Associations: Tangential (Improved) Thought Content: Bizarre thinking (Decreasing), Delusional (Decreasing) Hallucination Type: Auditory Delusion Type: Bizarre (Decreasing), Paranoid (Decreasing) Suicidal Ideation: No Suicidal Plan: No Suicidal Intention: No Homicidal Ideation: No Homicidal Plan: No Homicidal Intention: No Insight: Poor Judgment: Poor Assessment and Plan - Assessment (1) Unspecified psychosis Code(s): F29 - Unspecified psychosis not due to a substance or known physiological condition Status: Acute - Plan Plan: Patient remains psychotic paranoid and delusional. Compliant medications. For now continue treatment Justification for Continued Inpatient Stay: At this time patient would decompensate if not placed in a appropriate level of care Discharge Planning: To be determined Request Healthcare Surrogate/Guardian Advocate?: No (1) Unspecified psychosis Qualifiers: Psychosis type: brief psychotic disorder Qualified Code(s): F23 - Brief psychotic disorder
[2018-07-17 10:15] LABS: Calcium 9.1 mg/dL (8.5-10.1); Carbon Dioxide 23.5 meq/L (21.0-32.0)
[2018-07-17 11:06] LABS: Baso # (Auto) 0.1 th/mm3 (0.0-0.2); Eos # (Auto) 0.1 th/mm3 (0.0-0.4); Eos % (Auto) 1.2 % (0.0-4.0); Hematocrit 28.6 % (35.0-46.0); Hemoglobin 9.2 gm/dL (11.6-15.3); Lymph # (Auto) 2.2 th/mm3 (1.0-4.8); Lymph % (Auto) 25.6 % (9.0-44.0); Mean Corpuscular HGB Conc 32.3 % (32.0-36.0); Mean Corpuscular Hemoglobin 28.2 pg (27.0-34.0); Mean Corpuscular Volume 87.3 fL (80.0-100.0); Mean Platelet Volume 8.4 fL (7.0-11.0); Mono % (Auto) 11.5 % (0.0-8.0); Neut # (Auto) 5.3 th/mm3 (1.8-7.7); Neut % (Auto) 60.7 % (16.0-70.0); Platelet Count 274 th/mm3 (150-450); Red Blood Count 3.27 mil/mm3 (4.00-5.30); Red Cell Distribution Width 15.7 % (11.6-17.2); White Blood Count 8.8 th/mm3 (4.0-11.0)
[2018-07-17 11:29] LABS: Alanine Aminotransferase 17 U/L (10-53); Albumin 3.2 g/dL (3.4-5.0); Anion Gap 8 meq/L (5-15); Aspartate Aminotransferase 15 U/L (15-37); Blood Urea Nitrogen 42 mg/dL (7-18); Calcium 8.8 mg/dL (8.5-10.1); Carbon Dioxide 24.2 meq/L (21.0-32.0); Chloride 110 meq/L (98-107); Glomerular Filtration Rate 57 mL/min (>89); Glucose,Random 94 mg/dL (74-106); Potassium 3.9 meq/L (3.5-5.1); Sodium 142 meq/L (136-145)
[2018-07-17 11:31] LABS: Alkaline Phosphatase 135 U/L (45-117); Total Protein 7.2 g/dL (6.4-8.2)
--- NOTE | 2018-07-17 13:31 | CT ---
EXAM DATE: 07/17/2018 1:15 PM EDT AGE/SEX: 73 years / Female INDICATIONS: Patient complains of weakness, vertigo, nausea. CLINICAL DATA: This is the patient's initial encounter. Patient reports that signs and symptoms have been present for 1 day and indicates a pain score of 0/10. MEDICAL/SURGICAL HISTORY: Diabetes. Cardiovascular disease. Carcinoma, lung. Lobectomy. RADIATION DOSE: 35.79 CTDI (mGy) COMPARISON: [facility], CT BRAIN W/O CONTRAST, 07/28/2015. . TECHNIQUE: CT of the head without contrast. Using automated exposure control and adjustment of the mA and/or kV according to patient size, radiation dose was kept as low as reasonably achievable to ob tain optimal diagnostic quality images. DICOM format image data is available electronically for revi ew and comparison. FINDINGS: Cerebrum: The ventricles are normal for age. No evidence of midline shift, mass lesion, hemorrhage or acute infarction. No extraaxial fluid collections are seen. Posterior Fossa: The cerebellum and brainstem are intact. The 4th ventricle is midline. The cerebe llopontine angle is unremarkable. Extracranial: The visualized portion of the orbits is intact. Skull: The calvaria is intact. No evidence of skull fracture. CONCLUSION: 1. No acute intracranial abnormality identified. Electronically signed by: Thong Plascencia MD 07/17/2018 1:29 PM EDT
--- NOTE | 2018-07-17 16:01 | P.PNFP ---
Results - Labs Result diagrams: 07/17/18 10:40 07/17/18 10:40 Abnormal lab results 07/16/18 07/17/18 07/17/18 Range/Units 15:58 08:49 10:30 RBC (4.00-5.30) mil/mm3 Hgb (11.6-15.3) gm/dL Hct (35.0-46.0) % [place] % (Auto) (0.0-8.0) % [place] # (Auto) (0.0-0.9) th/mm3 Chloride 108 H (98-107) meq/L BUN 37 H (7-18) mg/dL Estimated GFR 61 L (>89) mL/min POC Glucose 131 H 114 H (68-110) mg/dl Random Glucose 183 H (74-106) mg/dL Alkaline Phosphatase (45-117) U/L Troponin I (0.02-0.05) ng/mL Albumin (3.4-5.0) g/dL 07/17/18 07/17/18 07/17/18 Range/Units 10:40 10:40 10:40 RBC 3.27 L (4.00-5.30) mil/mm3 Hgb 9.2 L (11.6-15.3) gm/dL Hct 28.6 L (35.0-46.0) % [place] % (Auto) 11.5 H (0.0-8.0) % [place] # (Auto) 1.0 H (0.0-0.9) th/mm3 Chloride 110 H (98-107) meq/L BUN 42 H (7-18) mg/dL Estimated GFR 57 L (>89) mL/min POC Glucose (68-110) mg/dl Random Glucose (74-106) mg/dL Alkaline Phosphatase 135 H (45-117) U/L Troponin I Less than 0.02 L (0.02-0.05) ng/mL Albumin 3.2 L (3.4-5.0) g/dL Short CBC 07/17/18 Range/Units 10:40 WBC 8.8 (4.0-11.0) th/mm3 Hgb 9.2 L (11.6-15.3) gm/dL Hct 28.6 L (35.0-46.0) % Plt Count 274 (150-450) th/mm3 BMP 07/17/18 07/17/18 08:49 10:40 Sodium 141 142 Potassium 4.0 3.9 Chloride 108 H 110 H Carbon Dioxide 23.5 24.2 BUN 37 H 42 H Creatinine 0.91 0.96 Calcium 9.1 8.8 Cardiac Enzymes 07/17/18 Range/Units 10:40 Troponin I Less than 0.02 L (0.02-0.05) ng/mL Liver Function 07/17/18 Range/Units 10:40 Total Bilirubin 0.2 (0.2-1.0) mg/dL AST 15 (15-37) U/L ALT 17 (10-53) U/L Alkaline Phosphatase 135 H (45-117) U/L Albumin 3.2 L (3.4-5.0) g/dL - Imaging Impressions Head CT 07/17/18 12:21 CONCLUSION: 1. No acute intracranial abnormality identified. Physical Exam Vital signs: Vital Signs 07/16/18 17:47 07/17/18 06:03 07/17/18 10:35 Temperature 97.3 F L 97.4 F L Pulse Rate 86 75 81 Respiratory Rate 16 18 20 Blood Pressure 109/57 L 117/62 121/58 L Pulse Oximetry 100 98 98 07/17/18 11:46 Temperature Pulse Rate 66 Respiratory Rate 18 Blood Pressure 122/56 L Pulse Oximetry 100 Intake & Output 07/16/18 07/17/18 07/17/18 18:59 06:59 18:59 Intake Total 240 / 240 240 / 240 Balance 240 / 240 240 / 240 Intake: Oral 240 / 240 240 / 240 - Constitutional no acute distress - Routine HEENT Exam Eye: Present: PERRL ENT: Present: mucous membranes moist - Routine Neck Exam Present: supple - Routine Respiratory Exam Present: CTA bilaterally - Routine Cardiovascular Exam Present: S1, S2 - Routine Abdominal Exam Present: soft, normoactive bowel sounds - Routine Skin Exam Present: dry, warm - Routine Psychiatric Exam Present: cooperative Assessment and Plan - Assessment (1) TERENCE (acute kidney injury) Code(s): N17.9 - Acute kidney failure, unspecified Status: Acute Plan: Na normal, renal functions improved (2) Hip pain Code(s): M25.559 - Pain in unspecified hip Status: Acute Plan: ronni xrays has been seen by dr mack reportedly has loosening hardware - Assessment and Plan TERENCE resolved, Will follow up after DC Ok to dc from Medical standpoint. 07/17/18- Transferred back to Psych unit yesterday. had episode this am of emesis and lightheadedness and lethargy. CT head negative, EKG ok Urine pending. Labs show no significant abnormalities. Seroquel increased yesterday. VSS, afebrile, will cont to monitor patients progress
[2018-07-17 22:21] LABS: Bilirubin,Urine Negative (Negative); Clarity,Urine Clear (Clear); Color,Urine Yellow (Yellw/Straw); Glucose,Urine (UA) Negative (Negative); Hyaline Casts,Urine 1 /lpf (0-3); Leukocyte Esterase,Urine Negative (Negative); Nitrite,Urine Negative (Negative); Specific Gravity,Urine 1.013 (1.002-1.035); Squamous Epithelial Cell,Urine <1 /hpf (0-5)
[2018-07-18] MEDS: Sucralfate 1 GM Tablet PO SCH ×3 (06:03→18:44)
[2018-07-18] MEDS: QUEtiapine 25 MG Tablet PO SCH ×2 (09:00→20:40)
--- NOTE | 2018-07-18 10:54 | P.PNFP ---
Subjective Interval history: Patient had lightheadedness and CP yesterday after Seroquel increased. Doing better today and aside from LLE discomfort from her loose FAN, she tells me she is without sx including CP. Results - Labs Result diagrams: 07/17/18 10:40 07/17/18 10:40 Abnormal lab results 07/17/18 07/17/18 07/17/18 Range/Units 10:30 10:40 10:40 RBC 3.27 L (4.00-5.30) mil/mm3 Hgb 9.2 L (11.6-15.3) gm/dL Hct 28.6 L (35.0-46.0) % [place] % (Auto) 11.5 H (0.0-8.0) % [place] # (Auto) 1.0 H (0.0-0.9) th/mm3 Chloride 110 H (98-107) meq/L BUN 42 H (7-18) mg/dL Estimated GFR 57 L (>89) mL/min POC Glucose 114 H (68-110) mg/dl Alkaline Phosphatase 135 H (45-117) U/L Troponin I (0.02-0.05) ng/mL Albumin 3.2 L (3.4-5.0) g/dL 07/17/18 Range/Units 10:40 RBC (4.00-5.30) mil/mm3 Hgb (11.6-15.3) gm/dL Hct (35.0-46.0) % [place] % (Auto) (0.0-8.0) % [place] # (Auto) (0.0-0.9) th/mm3 Chloride (98-107) meq/L BUN (7-18) mg/dL Estimated GFR (>89) mL/min POC Glucose (68-110) mg/dl Alkaline Phosphatase (45-117) U/L Troponin I Less than 0.02 L (0.02-0.05) ng/mL Albumin (3.4-5.0) g/dL Short CBC 07/17/18 Range/Units 10:40 WBC 8.8 (4.0-11.0) th/mm3 Hgb 9.2 L (11.6-15.3) gm/dL Hct 28.6 L (35.0-46.0) % Plt Count 274 (150-450) th/mm3 BMP 07/17/18 10:40 Sodium 142 Potassium 3.9 Chloride 110 H Carbon Dioxide 24.2 BUN 42 H Creatinine 0.96 Calcium 8.8 Cardiac Enzymes 07/17/18 Range/Units 10:40 Troponin I Less than 0.02 L (0.02-0.05) ng/mL Liver Function 07/17/18 Range/Units 10:40 Total Bilirubin 0.2 (0.2-1.0) mg/dL AST 15 (15-37) U/L ALT 17 (10-53) U/L Alkaline Phosphatase 135 H (45-117) U/L Albumin 3.2 L (3.4-5.0) g/dL Urine 07/17/18 Range/Units 21:45 Urine Color Yellow (Yellw/Straw) Urine Clarity Clear (Clear) Urine pH 5.0 (5.0-8.5) Ur Specific [place] 1.013 (1.002-1.035) Urine Protein Negative (Neg-Trace) mg/dL Urine Glucose (UA) Negative (Negative) mg/dL - Imaging Impressions Head CT 07/17/18 12:21 CONCLUSION: 1. No acute intracranial abnormality identified. Physical Exam Vital signs: Vital Signs 07/17/18 11:46 07/17/18 17:48 07/18/18 05:25 Temperature 97.5 F L 97.6 F Pulse Rate 66 78 83 Respiratory Rate 18 16 17 Blood Pressure 122/56 L 125/60 124/67 Pulse Oximetry 100 100 97 Intake & Output 07/17/18 07/18/18 07/18/18 18:59 06:59 18:59 Intake Total 480 / 480 480 / 480 Balance 480 / 480 480 / 480 Intake: Oral 480 / 480 480 / 480 Other: # Voids 2 - Constitutional no acute distress - Routine HEENT Exam Head: Present: normocephalic, atraumatic Eye: Present: PERRL, normal accommodation ENT: Present: mucous membranes moist - Routine Neck Exam Present: supple, full ROM - Routine Respiratory Exam Present: CTA bilaterally - Routine Cardiovascular Exam Present: RRR, S1, S2 - Routine Abdominal Exam Present: soft, normoactive bowel sounds - Routine Extremities Exam Present: edema Comments: LLE - Routine Skin Exam Present: intact - Routine Neurological Exam Present: alert, oriented X3 - Detailed Neurological Exam: Coma Scale Eye Opening: Spontaneous Verbal Response: Oriented Motor Response: Obey commands [place] Coma Scale Total: 15 - Routine Psychiatric Exam Present: normal affect Assessment and Plan - Assessment (1) TERENCE (acute kidney injury) Code(s): N17.9 - Acute kidney failure, unspecified Status: Acute Plan: Na normal, renal function cont to improve (2) Hip pain Code(s): M25.559 - Pain in unspecified hip Status: Acute Plan: assed xrays; She has been seen by Dr. Huizar and she is in no hurry to have corrective hip surgery due to reportedly loose hardware - Assessment and Plan TERENCE resolved, Will follow up after DC Ok to dc from Medical standpoint. 07/17/18- Transferred back to Psych unit yesterday. had episode this am of emesis and lightheadedness and lethargy. CT head negative, EKG ok Urine pending. Labs show no significant abnormalities. Seroquel increased yesterday. VSS, afebrile, will cont to monitor patients progress 07/18/18 - Episode yesterday likely due to increase in Seroquel but sx have resolved and she is without complinats this AM except LLE discomfort. Discussed Condition With: Patient
[2018-07-18] MEDS: Lidocaine 5% Patch T-DERMAL SCH (13:17)
--- NOTE | 2018-07-18 17:43 | P.PNPSY ---
Subjective Chief Complaint: Unspecified psychosis Remarks: Reviewed electronic medical records and discussed case with staff. Staff reports that she has been very pleasant and cooperative but somewhat intrusive with the other patients treatment and care. Follow-up was conducted in the milieu. Patient was found socializing with other patients. She reports that she has been sleeping "pretty good" states that her appetite is good. She describes her mood as anxious and sad. Mental Status Examination Appearance: Appropriate Consciousness: Alert Orientation: Person, Date/Time Motor Activity: Abnormal gait (Uses walker) Speech: Unremarkable Language: Adequate Fund of Knowledge: Inadequate Attention and Concentration: Adequate (Fair) Memory: Unremarkable Mood: Other (Euthymic) Affect: Other (Good range and intensity) Thought Process & Associations: Tangential (Improved) Thought Content: Bizarre thinking (Decreasing), Delusional (Decreasing) Hallucination Type: Auditory Delusion Type: Bizarre (Decreasing), Paranoid (Decreasing) Suicidal Ideation: No Suicidal Plan: No Suicidal Intention: No Homicidal Ideation: No Homicidal Plan: No Homicidal Intention: No Insight: Poor Judgment: Poor Assessment and Plan - Assessment (1) Unspecified psychosis not due to a substance or known physiological condition Code(s): F29 - Unspecified psychosis not due to a substance or known physiological condition Status: Acute - Plan Plan: Patient will be reevaluated Friday by the attending psychiatrist. Continue with current treatment plan. Justification for Continued Inpatient Stay: Moving this patient to a less restrictive environment would likely result in decompensation. Request Healthcare Surrogate/Guardian Advocate?: No
--- NOTE | 2018-07-18 22:24 | ECG ---
Date Performed: 07/17/2018 Time Performed: 10:59:06 PTAGE: 73 years EKG: Sinus rhythm WITH FIRST DEGREE AV BLOCK ABNORMAL ECG PREVIOUS TRACING : 12/06/2003 16.29 DOCTOR: Roselyn Vance Interpretating Date/Time 07/18/2018 22:15:13
[2018-07-19] MEDS: Sucralfate 1 GM Tablet PO SCH ×4 (00:36→17:32)
--- NOTE | 2018-07-19 08:11 | P.PNPSY ---
Subjective Chief Complaint: Unspecified psychosis Remarks: Reviewed electronic medical records and discussed case with staff. MELINA Fry and I met with patient in the dayroom. She is waiting for breakfast and socializing with other patients. She endorses that she has been sleeping well and ambulating with her walker without difficulty. Complaining of left hip pain. States that this has been repaired in the past , but the pain is returning and she knows she needs a new hip. Staff have been trying to push fluids as she needed a liter of fluid earlier in the week. Her mood is anxious and sad. Review of Systems All other systems reviewed negative except as stated in HPI Comments: complaining of left hip pain. Mental Status Examination Appearance: Appropriate Consciousness: Alert Orientation: Person, Date/Time Motor Activity: Abnormal gait (Uses walker left hip pain ) Speech: Unremarkable Language: Adequate Fund of Knowledge: Inadequate Attention and Concentration: Adequate (Fair) Memory: Unremarkable Mood: Sad, Anxious Affect: Other (Good range and intensity) Thought Process & Associations: Tangential (Improved) Thought Content: Bizarre thinking (Decreasing), Delusional (Decreasing) Hallucination Type: Auditory Delusion Type: Bizarre (Decreasing), Paranoid (Decreasing) Suicidal Ideation: No Suicidal Plan: No Suicidal Intention: No Homicidal Ideation: No Homicidal Plan: No Homicidal Intention: No Insight: Poor Judgment: Poor Assessment and Plan - Assessment (1) Unspecified psychosis Code(s): F29 - Unspecified psychosis not due to a substance or known physiological condition Status: Acute - Plan Plan: Patient will be reevaluated Friday by the attending psychiatrist. Continue with current treatment plan. Justification for Continued Inpatient Stay: Moving patient to a less restrictive environment may result in her decompensation. Request Healthcare Surrogate/Guardian Advocate?: No
[2018-07-19] MEDS: QUEtiapine 25 MG Tablet PO SCH ×2 (09:31→20:05)
--- NOTE | 2018-07-19 10:34 | P.PNFP ---
Subjective Interval history: She denies recurrence of CP and nausea over the past 48 hours and is without complaints today except chronic leg pain. Results - Labs Result diagrams: 07/17/18 10:40 07/17/18 10:40 Physical Exam Vital signs: Vital Signs 07/18/18 17:43 07/19/18 05:43 Temperature 98.6 F 97.4 F L Pulse Rate 76 81 Respiratory Rate 18 18 Blood Pressure 126/70 137/60 Pulse Oximetry 98 98 Intake & Output 07/18/18 07/19/18 07/19/18 18:59 06:59 18:59 Intake Total 360 / 360 Balance 360 / 360 Intake: Oral 360 / 360 - Constitutional no acute distress - Routine HEENT Exam Head: Present: normocephalic Eye: Present: PERRL ENT: Present: mucous membranes moist - Routine Neck Exam Present: supple, full ROM - Routine Respiratory Exam Present: CTA bilaterally - Routine Cardiovascular Exam Present: RRR, S1, S2 - Routine Abdominal Exam Present: soft, normoactive bowel sounds - Routine Extremities Exam Present: normal capillary refill - Routine Skin Exam Present: intact - Routine Neurological Exam Present: alert, oriented X3 - Detailed Neurological Exam: Coma Scale Eye Opening: Spontaneous Verbal Response: Oriented Motor Response: Obey commands [place] Coma Scale Total: 15 - Routine Psychiatric Exam Present: cooperative Assessment and Plan - Assessment (1) TERENCE (acute kidney injury) Code(s): N17.9 - Acute kidney failure, unspecified Status: Resolved Plan: GFR now up to 60 ml/min, WNL. (2) Hip pain Code(s): M25.559 - Pain in unspecified hip Status: Acute Plan: assed xrays; She has been seen by Dr. Huizar and she is in no hurry to have corrective hip surgery due to reportedly loose hardware - Assessment and Plan TERENCE resolved, Will follow up after DC Ok to dc from Medical standpoint. 07/17/18- Transferred back to Psych unit yesterday. had episode this am of emesis and lightheadedness and lethargy. CT head negative, EKG ok Urine pending. Labs show no significant abnormalities. Seroquel increased yesterday. VSS, afebrile, will cont to monitor patients progress 07/18/18 - Episode yesterday likely due to increase in Seroquel but sx have resolved and she is without complaints this AM except LLE discomfort. 07/19/18 - Sounds like events of 2 days ago related to Seroquel and have resolved. Today she is again without complaints.
[2018-07-19] MEDS: Lidocaine 5% Patch T-DERMAL SCH (11:05)
[2018-07-20] MEDS: Sucralfate 1 GM Tablet PO SCH ×4 (00:32→17:04)
[2018-07-20] MEDS: QUEtiapine 25 MG Tablet PO SCH (10:23)
[2018-07-20] MEDS: Lidocaine 5% Patch T-DERMAL SCH (10:24)
--- NOTE | 2018-07-20 12:09 | P.PNPSY ---
Subjective Chief Complaint: Unspecified psychosis Remarks: Patient seen in day room with nurse Cheli, chart reviewed, patient compliant medications. Patient's delusions persist with no significant diminution. There is very little reality testing related to it. The patient denies suicidality "because I am Rastafari" at this time I feel the scheduled Seroquel is not effective and treating this patient's psychosis. We will discontinue that and order Resporal M tab 1 mg twice daily Review of Systems All other systems reviewed negative except as stated in HPI Mental Status Examination Appearance: Appropriate Consciousness: Alert Orientation: Person, Date/Time Motor Activity: Abnormal gait (Uses walker left hip pain ) Speech: Unremarkable Language: Adequate Fund of Knowledge: Inadequate Attention and Concentration: Adequate (Fair) Memory: Unremarkable Mood: Sad, Anxious Affect: Other (Good range and intensity) Thought Process & Associations: Tangential (Improved) Thought Content: Bizarre thinking (Decreasing), Delusional (Decreasing) Hallucination Type: Auditory Delusion Type: Bizarre (Decreasing), Paranoid (Decreasing) Suicidal Ideation: No Suicidal Plan: No Suicidal Intention: No Homicidal Ideation: No Homicidal Plan: No Homicidal Intention: No Insight: Poor Judgment: Poor Assessment and Plan - Assessment (1) Unspecified psychosis Code(s): F29 - Unspecified psychosis not due to a substance or known physiological condition Status: Acute - Plan Plan: Patient continues psychotic and delusional. Justification for Continued Inpatient Stay: At this time patient would decompensate a place to the lower level of care Discharge Planning: To be determined Request Healthcare Surrogate/Guardian Advocate?: No (1) Unspecified psychosis Qualifiers: Psychosis type: brief psychotic disorder Qualified Code(s): F23 - Brief psychotic disorder
[2018-07-21] MEDS: risperiDONE 1 MG ODT PO SCH ×3 (01:18→21:12)
[2018-07-21] MEDS: Acetaminophen 325 MG Tablet PO PRN ×2 (04:12→09:59)
[2018-07-21] MEDS: Sucralfate 1 GM Tablet PO SCH ×7 (04:16→23:37)
--- NOTE | 2018-07-21 08:48 | P.TTN ---
- Patient Problems Problems: 1. Discharge planning 2. Medication compliance 3. Knowledge deficit 4. Lack of coping skills - Progress Toward Goals Provider Present: Dr. Sandee Perry Provider Input: 07/20/18- Patient presently still meeting criteria, paranoid, delusional, has apartment. Patient shcduled for court tomorrow, may be in need of therapy and home health upon discharge Psychiatric Counselors Present: Other Psychiatric Therapist Input: 07/20/18 Johanna- Patietn is mildly confused at times , delusional , meets criteria, limited support system, cooperative, pleasant. Johanna- patient is cooperative, lives alone may be able to return home with home health Group Spec/RT/OT/BRICEÑO Present: Sendy Brooke, GPS Group Spec/RT/OT/BRICEÑO Input: 07/20/18 Patient attends groups, is appropriate, social, follows rules, engages in projects. Patient has OT , MOD independence, uses walker - Documentation Teaching Recipient: Patient
[2018-07-21] MEDS: Lidocaine 5% Patch T-DERMAL SCH (10:06)
--- NOTE | 2018-07-21 18:07 | P.PNPSY ---
Subjective Chief Complaint: Unspecified psychosis Remarks: Patient seen in day room with nurse Jennifer, chart reviewed, patient continues calm pleasant and appropriate with fair eye contact occasional small smile. She does complain of some arthritic pain we will discontinue Tylenol and offer Motrin 600 mg every 8 hours. Patient continues with the delusions though she is able to suppress them at this time while speaking well with us she does deny suicidality homicidality at this time Review of Systems All other systems reviewed negative except as stated in HPI Mental Status Examination Appearance: Appropriate Consciousness: Alert Orientation: Person, Date/Time Motor Activity: Abnormal gait (Uses walker left hip pain ) Speech: Unremarkable Language: Adequate Fund of Knowledge: Inadequate Attention and Concentration: Adequate (Fair) Memory: Unremarkable Mood: Sad, Anxious Affect: Other (Good range and intensity) Thought Process & Associations: Tangential (Improved) Thought Content: Bizarre thinking (Decreasing), Delusional (Decreasing) Hallucination Type: Auditory Delusion Type: Bizarre (Decreasing), Paranoid (Decreasing) Suicidal Ideation: No Suicidal Plan: No Suicidal Intention: No Homicidal Ideation: No Homicidal Plan: No Homicidal Intention: No Insight: Poor Judgment: Poor Assessment and Plan - Assessment (1) Unspecified psychosis Code(s): F29 - Unspecified psychosis not due to a substance or known physiological condition Status: Acute - Plan Plan: Patient delusions persist though overall mental status exam is showing some global improvement she is calm and pleasant with us. Compliant with medications. Hopes that the Resporal was show some more improvement in her delusions. For now continue treatment Justification for Continued Inpatient Stay: At this time patient would decompensate a place to the lower level of care Discharge Planning: To be determined Request Healthcare Surrogate/Guardian Advocate?: No (1) Unspecified psychosis Qualifiers: Psychosis type: brief psychotic disorder Qualified Code(s): F23 - Brief psychotic disorder
[2018-07-21] MEDS: Ibuprofen 600 MG Tablet PO SCH (21:14)
[2018-07-22] MEDS: Sucralfate 1 GM Tablet PO SCH ×4 (05:47→23:45)
[2018-07-22] MEDS: Ibuprofen 600 MG Tablet PO SCH ×3 (05:47→21:48)
[2018-07-22] MEDS: risperiDONE 1 MG ODT PO SCH ×2 (10:11→21:48)
[2018-07-22] MEDS: Lidocaine 5% Patch T-DERMAL SCH (10:17)
--- NOTE | 2018-07-22 17:41 | P.PNPSY ---
Subjective Chief Complaint: Unspecified psychosis Remarks: Reviewed electronic medical records and discussed case with staff. Follow-up was conducted in patient's room. Patient was found lying the bed awake and alert. She states that she is "not feeling very well". She reports that she had difficulty sleeping last night due to increased restless leg symptoms. I spoke with Dr. Rodriguez who recommended a physical therapy consult due to patient being at maximum dose of Requip. I have ordered a consult. Staff reports she continues with her fixed paranoid delusion. Mental Status Examination Appearance: Appropriate Consciousness: Alert Orientation: Person, Date/Time Motor Activity: Abnormal gait (Uses walker left hip pain ) Speech: Unremarkable Language: Adequate Fund of Knowledge: Inadequate Attention and Concentration: Adequate (Fair) Memory: Unremarkable Mood: Sad, Anxious Affect: Other (Good range and intensity) Thought Process & Associations: Tangential (Improved) Thought Content: Bizarre thinking (Decreasing), Delusional (Decreasing) Hallucination Type: Auditory Delusion Type: Bizarre (Decreasing), Paranoid (Decreasing) Suicidal Ideation: No Suicidal Plan: No Suicidal Intention: No Homicidal Ideation: No Homicidal Plan: No Homicidal Intention: No Insight: Poor Judgment: Poor Assessment and Plan - Assessment (1) Unspecified psychosis not due to a substance or known physiological condition Code(s): F29 - Unspecified psychosis not due to a substance or known physiological condition Status: Deleted - Plan Plan: I have ordered a physical therapy consult due to patient's reporting increasing restless leg at night. Continue with current treatment plan. Justification for Continued Inpatient Stay: Moving this patient to a less restrictive environment would likely result in decompensation. Request Healthcare Surrogate/Guardian Advocate?: No
[2018-07-23] MEDS: Ibuprofen 600 MG Tablet PO SCH ×3 (06:14→21:11)
[2018-07-23 06:43] LABS: Hemoglobin 9.7 gm/dL (11.6-15.3); Mean Corpuscular HGB Conc 32.2 % (32.0-36.0); Mean Corpuscular Hemoglobin 27.9 pg (27.0-34.0); Mean Corpuscular Volume 86.7 fL (80.0-100.0); Platelet Count 300 th/mm3 (150-450); Red Blood Count 3.46 mil/mm3 (4.00-5.30); Red Cell Distribution Width 15.2 % (11.6-17.2); White Blood Count 8.2 th/mm3 (4.0-11.0)
[2018-07-23 06:52] LABS: Calcium 9.4 mg/dL (8.5-10.1); Carbon Dioxide 27.4 meq/L (21.0-32.0); Potassium 3.9 meq/L (3.5-5.1)
[2018-07-23] MEDS: risperiDONE 1 MG ODT PO SCH ×2 (09:47→20:55)
[2018-07-23] MEDS: Lidocaine 5% Patch T-DERMAL SCH (09:49)
[2018-07-23] MEDS: Sucralfate 1 GM Tablet PO SCH ×3 (11:09→18:53)
--- NOTE | 2018-07-23 15:07 | P.PNPSY ---
Subjective Chief Complaint: Unspecified psychosis Remarks: Reviewed electronic medical records and discussed case with staff. Follow-up was conducted in the patient's doorway. She was found sitting on her rolling walker chatting with another patient. She reports that she slept "a little better last night". Reports that her appetite's been good. She denies any side effects from medication. She still states that her mood is "sad". Mental Status Examination Appearance: Appropriate Consciousness: Alert Orientation: Person, Date/Time Motor Activity: Abnormal gait (Uses walker left hip pain ) Speech: Unremarkable Language: Adequate Fund of Knowledge: Inadequate Attention and Concentration: Adequate (Fair) Memory: Unremarkable Mood: Sad, Anxious Affect: Other (Good range and intensity) Thought Process & Associations: Tangential (Improved) Thought Content: Bizarre thinking (Decreasing), Delusional (Decreasing) Hallucination Type: Auditory Delusion Type: Bizarre (Decreasing), Paranoid (Decreasing) Suicidal Ideation: No Suicidal Plan: No Suicidal Intention: No Homicidal Ideation: No Homicidal Plan: No Homicidal Intention: No Insight: Poor Judgment: Poor Assessment and Plan - Assessment (1) Unspecified psychosis not due to a substance or known physiological condition Code(s): F29 - Unspecified psychosis not due to a substance or known physiological condition Status: Deleted - Plan Plan: Continue with current treatment plan. Patient was started on Risperdal 2 days ago. Monitor for psychiatric stabilization. Justification for Continued Inpatient Stay: Moving this patient to a less restrictive environment would likely result in decompensation. Request Healthcare Surrogate/Guardian Advocate?: No
--- NOTE | 2018-07-23 16:37 | P.PNFP ---
Subjective Interval history: pt seen in 2505 resting quietly still delusional Results - Labs Result diagrams: 07/23/18 06:03 07/23/18 06:03 Abnormal lab results 07/23/18 07/23/18 Range/Units 06:03 06:03 RBC 3.46 L (4.00-5.30) mil/mm3 Hgb 9.7 L (11.6-15.3) gm/dL Hct 30.0 L (35.0-46.0) % BUN 32 H (7-18) mg/dL Estimated GFR 68 L (>89) mL/min Random Glucose 111 H (74-106) mg/dL Short CBC 07/23/18 Range/Units 06:03 WBC 8.2 (4.0-11.0) th/mm3 Hgb 9.7 L (11.6-15.3) gm/dL Hct 30.0 L (35.0-46.0) % Plt Count 300 (150-450) th/mm3 BMP 07/23/18 06:03 Sodium 142 Potassium 3.9 Chloride 106 Carbon Dioxide 27.4 BUN 32 H Creatinine 0.82 Calcium 9.4 Physical Exam Vital signs: Vital Signs 07/22/18 17:38 07/23/18 06:00 Temperature 97.3 F L 97.2 F L Pulse Rate 78 92 H Respiratory Rate 18 18 Blood Pressure 118/56 L 153/66 H Pulse Oximetry 99 99 Intake & Output 07/22/18 07/23/18 07/23/18 18:59 06:59 18:59 Intake Total 960 / 960 580 / 580 720 / 720 Balance 960 / 960 580 / 580 720 / 720 Intake: Oral 960 / 960 480 / 480 720 / 720 Oral Supplement 0 / 0 100 / 100 Other: # Voids 3 2 # Bowel Movements 1 - Constitutional no acute distress - Routine HEENT Exam Head: Present: normocephalic, Crowell's sign Eye: Present: EOMI, PERRL ENT: Present: mucous membranes moist - Routine Neck Exam Present: supple, full ROM - Routine Respiratory Exam Present: CTA bilaterally - Routine Cardiovascular Exam Present: RRR - Routine Abdominal Exam Present: soft, normoactive bowel sounds - Routine Extremities Exam Present: full ROM, pulses intact - Routine Skin Exam Present: dry Assessment and Plan - Assessment (1) TERENCE (acute kidney injury) Code(s): N17.9 - Acute kidney failure, unspecified Status: Resolved Plan: GFR now up to 60 ml/min, WNL. 07/23 gfr now 67 but cl upiii will encourage fluids (2) Hip pain Code(s): M25.559 - Pain in unspecified hip Status: Acute Plan: assed xrays; She has been seen by Dr. Huizar and she is in no hurry to have corrective hip surgery due to reportedly loose hardware 07/23 no further co - Assessment and Plan TERENCE resolved, Will follow up after DC Ok to dc from Medical standpoint. 07/17/18- Transferred back to Psych unit yesterday. had episode this am of emesis and lightheadedness and lethargy. CT head negative, EKG ok Urine pending. Labs show no significant abnormalities. Seroquel increased yesterday. VSS, afebrile, will cont to monitor patients progress 07/18/18 - Episode yesterday likely due to increase in Seroquel but sx have resolved and she is without complaints this AM except LLE discomfort. 07/19/18 - Sounds like events of 2 days ago related to Seroquel and have resolved. Today she is again without complaints.
[2018-07-24] MEDS: Ibuprofen 600 MG Tablet PO SCH ×3 (06:27→21:02)
[2018-07-24] MEDS: Sucralfate 1 GM Tablet PO SCH ×4 (06:28→17:55)
[2018-07-24] MEDS: risperiDONE 1 MG ODT PO SCH ×2 (09:07→20:30)
[2018-07-24] MEDS: Lidocaine 5% Patch T-DERMAL SCH (09:07)
--- NOTE | 2018-07-24 14:27 | P.PNPSY ---
Subjective Chief Complaint: Unspecified psychosis Remarks: The patient was seen today for psychiatric reevaluation. Case discussed with nursing charge. The patient is calm, cooperative, very pleasant. She reports feeling much better today. She is fully oriented 3. She complains of poor sleep at night. She also complains of low back pain and is requesting tramadol. She has been compliant her medications in the unit, no significant side effects. No agitation, no aggressive behavior, no behavioral dysregulation reported. Mental Status Examination Appearance: Appropriate Consciousness: Alert Orientation: Person, Date/Time Motor Activity: Abnormal gait (Uses walker left hip pain ) Speech: Unremarkable Language: Adequate Fund of Knowledge: Inadequate Attention and Concentration: Adequate (Fair) Memory: Unremarkable Mood: Sad, Anxious Affect: Other (Good range and intensity) Thought Process & Associations: Tangential (Improved) Thought Content: Bizarre thinking (Decreasing), Delusional (Decreasing) Hallucination Type: Auditory Delusion Type: Bizarre (Decreasing), Paranoid (Decreasing) Suicidal Ideation: No Suicidal Plan: No Suicidal Intention: No Homicidal Ideation: No Homicidal Plan: No Homicidal Intention: No Insight: Poor Judgment: Poor Assessment and Plan - Assessment (1) Unspecified psychosis Code(s): F29 - Unspecified psychosis not due to a substance or known physiological condition Status: Acute - Plan Plan: Continue current psychotropic regimen. Monitor his sleep tonight, if patient is not sleeping well, may benefit of a low dose of statin Benadryl 25 mg. Justification for Continued Inpatient Stay: Patient has an elevated risk to decompensate at a lower level of care. Request Healthcare Surrogate/Guardian Advocate?: No (1) Unspecified psychosis Qualifiers: Psychosis type: brief psychotic disorder Qualified Code(s): F23 - Brief psychotic disorder
[2018-07-25] MEDS: Sucralfate 1 GM Tablet PO SCH ×3 (00:05→11:52)
[2018-07-25] MEDS: Ibuprofen 600 MG Tablet PO SCH ×3 (06:25→21:45)
[2018-07-25] MEDS: Lidocaine 5% Patch T-DERMAL SCH (09:34)
[2018-07-25] MEDS: risperiDONE 1 MG ODT PO SCH ×2 (09:37→21:43)
--- NOTE | 2018-07-25 12:55 | P.PNPSY ---
Subjective Chief Complaint: Unspecified psychosis Remarks: Pt seen and discussed with staff. Chart reviewed. She has been compliant with medications. She remains paranoid and anxious, believing that she is being targeted for harm for being an FBI informant. no SI/HI Mental Status Examination Appearance: Appropriate Consciousness: Alert Orientation: Person, Date/Time Motor Activity: Abnormal gait (Uses walker left hip pain ) Speech: Unremarkable Language: Adequate Fund of Knowledge: Inadequate Attention and Concentration: Adequate (Fair) Memory: Unremarkable Mood: Sad, Anxious Affect: Other (Good range and intensity) Thought Process & Associations: Tangential (Improved) Thought Content: Delusional (Decreasing) Hallucination Type: Auditory Delusion Type: Paranoid (Decreasing) Suicidal Ideation: No Suicidal Plan: No Suicidal Intention: No Homicidal Ideation: No Homicidal Plan: No Homicidal Intention: No Insight: Poor Judgment: Poor Assessment and Plan - Assessment (1) Unspecified psychosis Code(s): F29 - Unspecified psychosis not due to a substance or known physiological condition Status: Acute - Plan Plan: Continue current tx plan Justification for Continued Inpatient Stay: impairments in reality testing Request Healthcare Surrogate/Guardian Advocate?: No (1) Unspecified psychosis Qualifiers: Psychosis type: brief psychotic disorder Qualified Code(s): F23 - Brief psychotic disorder
[2018-07-26] MEDS: Sucralfate 1 GM Tablet PO SCH ×4 (00:30→17:47)
[2018-07-26] MEDS: Ibuprofen 600 MG Tablet PO SCH ×3 (05:54→23:31)
[2018-07-26] MEDS: risperiDONE 1 MG ODT PO SCH ×2 (08:53→20:47)
[2018-07-26] MEDS: Lidocaine 5% Patch T-DERMAL SCH (08:53)
--- NOTE | 2018-07-26 08:53 | P.PNPSY ---
Subjective Chief Complaint: Unspecified psychosis Remarks: Medical records reviewed and discussed with nursing staff. Cheli, RN and Selena RN accompanied me to the dayroom to talk with patient. She is eating breakfast. Continues to be delusional that thinks that people are out to harm her. Complaining of RLS and pain in her left hip. Patient states, "my depression pill is working, I have tried everything, but this pill works." Medication compliant. Review of Systems All other systems reviewed negative except as stated in HPI Mental Status Examination Appearance: Appropriate Consciousness: Alert Orientation: Person, Date/Time Motor Activity: Abnormal gait (Uses walker left hip pain ) Speech: Unremarkable Language: Adequate Fund of Knowledge: Inadequate Attention and Concentration: Adequate (Fair) Memory: Unremarkable Mood: Sad, Anxious Affect: Other (Good range and intensity) Thought Process & Associations: Tangential (Improved) Thought Content: Delusional (Decreasing) Hallucination Type: Auditory Delusion Type: Paranoid (Decreasing) Suicidal Ideation: No Suicidal Plan: No Suicidal Intention: No Homicidal Ideation: No Homicidal Plan: No Homicidal Intention: No Insight: Poor Judgment: Poor Assessment and Plan - Assessment (1) Unspecified psychosis Code(s): F29 - Unspecified psychosis not due to a substance or known physiological condition Status: Acute - Plan Plan: Continue current tx plan Justification for Continued Inpatient Stay: Moving patient to a less restrictive environment may result in her decompensation. Request Healthcare Surrogate/Guardian Advocate?: No
--- NOTE | 2018-07-26 11:18 | P.PNFP ---
Subjective Interval history: She tells me she is much calmer and feels the antidepressant med is working. She is hopeful for D/C soon. Results - Labs Result diagrams: 07/23/18 06:03 07/23/18 06:03 Physical Exam Vital signs: Vital Signs 07/25/18 19:54 07/25/18 20:00 07/26/18 06:34 Temperature 97.8 F 98.2 F Pulse Rate 79 95 H Respiratory Rate 16 16 14 Blood Pressure 105/55 L 140/63 Pulse Oximetry 100 98 07/26/18 08:45 Temperature Pulse Rate Respiratory Rate 15 Blood Pressure Pulse Oximetry Intake & Output 07/25/18 07/26/18 07/26/18 18:59 06:59 18:59 Intake Total 940 / 940 Balance 940 / 940 Intake: Oral 840 / 840 Oral Supplement 100 / 100 Other: # Voids 2 # Bowel Movements 1 - Constitutional no acute distress - Routine HEENT Exam Head: Present: normocephalic Eye: Present: PERRL ENT: Present: mucous membranes moist - Routine Neck Exam Present: supple, full ROM - Routine Respiratory Exam Present: CTA bilaterally - Routine Cardiovascular Exam Present: RRR, S1, S2 - Routine Abdominal Exam Present: soft, normoactive bowel sounds - Routine Extremities Exam Present: full ROM - Routine Skin Exam Present: intact - Routine Neurological Exam Present: alert, oriented X3 - Detailed Neurological Exam: Coma Scale Eye Opening: Spontaneous Verbal Response: Oriented Motor Response: Obey commands [place] Coma Scale Total: 15 - Routine Psychiatric Exam Present: normal affect Assessment and Plan - Assessment (1) TERENCE (acute kidney injury) Code(s): N17.9 - Acute kidney failure, unspecified Status: Resolved Plan: Resolved as her last GFR is up to 68 ml/min, WNL. (2) Hip pain Code(s): M25.559 - Pain in unspecified hip Status: Acute Plan: assed xrays; She has been seen by Dr. Huizar and she is in no hurry to have corrective hip surgery due to reportedly loose hardware - Assessment and Plan TERENCE resolved, Will follow up after DC Ok to dc from Medical standpoint. 07/17/18- Transferred back to Psych unit yesterday. had episode this am of emesis and lightheadedness and lethargy. CT head negative, EKG ok Urine pending. Labs show no significant abnormalities. Seroquel increased yesterday. VSS, afebrile, will cont to monitor patients progress 07/18/18 - Episode yesterday likely due to increase in Seroquel but sx have resolved and she is without complaints this AM except LLE discomfort. 07/19/18 - Sounds like events of 2 days ago related to Seroquel and have resolved. Today she is again without complaints. - She believes she has made significant progress in her psych disorder and is hopeful for D/C soon. Discussed Condition With: Patient
[2018-07-27] MEDS: Sucralfate 1 GM Tablet PO SCH ×5 (05:03→17:56)
[2018-07-27] MEDS: Ibuprofen 600 MG Tablet PO SCH ×2 (05:22→21:06)
[2018-07-27] MEDS: risperiDONE 1 MG ODT PO SCH ×2 (09:49→21:08)
[2018-07-27] MEDS: Lidocaine 5% Patch T-DERMAL SCH (09:50)
--- NOTE | 2018-07-27 12:01 | P.PNPSY ---
Subjective Chief Complaint: Unspecified psychosis Remarks: Reviewed electronic medical records and discussed case with staff. Follow-up was conducted in the day room. Patient states that she is in good spirits. She reports that she slept better last night than previously. Her appetite's been good. She states that she feels this "depression pills the first it has ever worked for me". Spoke with Johanna, counselor about discharge planning, patient's apartment does not have air conditioning at this time. Mental Status Examination Appearance: Appropriate Consciousness: Alert Orientation: Person, Date/Time Motor Activity: Abnormal gait (Uses walker left hip pain ) Speech: Unremarkable Language: Adequate Fund of Knowledge: Inadequate Attention and Concentration: Adequate (Fair) Memory: Unremarkable Mood: Sad, Anxious Affect: Other (Good range and intensity) Thought Process & Associations: Tangential (Improved) Thought Content: Delusional (Decreasing) Hallucination Type: Auditory Delusion Type: Paranoid (Decreasing) Suicidal Ideation: No Suicidal Plan: No Suicidal Intention: No Homicidal Ideation: No Homicidal Plan: No Homicidal Intention: No Insight: Poor Judgment: Poor Assessment and Plan - Assessment (1) Unspecified psychosis not due to a substance or known physiological condition Code(s): F29 - Unspecified psychosis not due to a substance or known physiological condition Status: Deleted - Plan Plan: Patient will be reevaluated Friday by the attending psychiatrist. Continue with current treatment plan. Justification for Continued Inpatient Stay: Moving this patient to a less restrictive environment would likely result in decompensation. Discharge Planning: To be determined. Request Healthcare Surrogate/Guardian Advocate?: No
[2018-07-28] MEDS: Sucralfate 1 GM Tablet PO SCH ×4 (01:43→17:26)
[2018-07-28] MEDS: Ibuprofen 600 MG Tablet PO SCH ×3 (06:18→23:57)
[2018-07-28] MEDS: risperiDONE 1 MG ODT PO SCH (09:18)
[2018-07-28] MEDS: Lidocaine 5% Patch T-DERMAL SCH (09:19)
[2018-07-29] MEDS: risperiDONE 1 MG ODT PO SCH ×2 (00:02→08:35)
[2018-07-29] MEDS: Sucralfate 1 GM Tablet PO SCH ×3 (00:02→12:20)
--- NOTE | 2018-07-29 00:39 | P.PNPSY ---
Subjective Chief Complaint: Unspecified psychosis Remarks: Patient seen for follow up; chart reviewed. Discussion with nursing staff reported patient with no behavioral issues, pleasant and compliant with treatment. Patient denies any depressed mood, denies any physical complaints at this time, denies any SI, HI or delusions. Reports adequate appetite.. Review of Systems All other systems reviewed negative except as stated in HPI Mental Status Examination Appearance: Appropriate Consciousness: Alert Orientation: Person, Date/Time Motor Activity: Abnormal gait (Uses walker left hip pain ) Speech: Unremarkable Language: Adequate Fund of Knowledge: Inadequate Attention and Concentration: Adequate (Fair) Memory: Unremarkable Mood: Appropriate Affect: Appropriate, Other (Good range and intensity) Thought Process & Associations: Intact, Linear Thought Content: Delusional (Decreasing) Hallucination Type: None Delusion Type: Paranoid (Decreasing) Suicidal Ideation: No Suicidal Plan: No Suicidal Intention: No Homicidal Ideation: No Homicidal Plan: No Homicidal Intention: No Insight: Poor Judgment: Poor Assessment and Plan - Assessment (1) Unspecified psychosis Code(s): F29 - Unspecified psychosis not due to a substance or known physiological condition Status: Acute - Plan Plan: Patient with stable mood, denying any depressive symptoms, no SI or HI. Will continue current treatment. Discharge planning in progress. Justification for Continued Inpatient Stay: [facility] for further decompensation at lower level of care. Request Healthcare Surrogate/Guardian Advocate?: No (1) Unspecified psychosis Qualifiers: Psychosis type: brief psychotic disorder Qualified Code(s): F23 - Brief psychotic disorder
[2018-07-29] MEDS: Ibuprofen 600 MG Tablet PO SCH ×2 (05:55→14:32)
[2018-07-29 06:21] VITALS: BP 141/65; PULSE 80; RESP 15; TEMP 99.3; O2SAT 97
[2018-07-29] MEDS: Lidocaine 5% Patch T-DERMAL SCH (08:35)
--- NOTE | 2018-07-29 12:01 | P.DSPSY ---
Psychiatry Discharge Summary Inpatient Psychiatric care?: Yes Advance Directives: No Mental Health Advance Directive: No Health Care Proxy: No - Admission Admission Date: July 10, 2018 19:53 Brief History: Patient is a 73-year-old woman, single, no children, domiciled alone, Social Security benefits, with a past psychiatric history of unspecified psychosis, history of depression and dissociative disorder as per patient, 2 previous psychiatric admissions last at [facility] in 2005, no previous suicide attempts or self-injurious behavior, with a past medical history significant for hypertension, diabetes, history of lung cancer status post right lung resection and chemotherapy, who was brought into the ED under [place] act after patient had contacted her physician stated the people trying to kill her at her apartment endorsing voices that are saying that they are going to kill he in the context of current UTI which patient was admitted to the inpatient psychiatry unit for further evaluation and management. Patient was found in day room eating lunch noted B, cooperative. Patient states that while she was at home she had heard voices stating "he wanted to kill me" and stated that she had walked to the local convenience store and will stop by homeless people who had interrogated her when she then stated having return back to her home and shut the blinds for fear of a sniper. She states that she called the police stating that people were trying to murder her. She also mentions that she has the voices she hears in her home which she believes are due to thin hayden. Patient states her mood has been "happy" denying feeling depressed, denying suicidal homicidal ideations, patient continued with a very paranoid and persecutory delusions, alert and oriented 3. Attempt to obtain collateral formation from patient's brother Dixon Isaac [phone], was attempted but there was no answer. We will attempt to contact patient's brother to have him serve as patient's healthcare surrogate and guardian advocate. Family psychiatric history: Patient reports grandfather with history of dementia Past psychiatric history: History of unspecified psychosis, depression and dissociative disorder as per patient, 2 previous psychiatric admissions last time being here at [facility] in 2005, no previous suicide attempt or self- injurious behavior. Patient has no outpatient mental health provider at this time. Previous medication trials include quetiapine. Substance use history: Alcohol use 1-2 times a week DM, HTN, history of lung cancer status post lung resection and chemotherapy Allergies: Haldol Social history: Single, no children, domiciled alone, unemployed on Social Security benefits collateral contact is patient's brother Dixon Isaac [phone] Tobacco Use In Past 30 Days: No How Often Do You Have a Drink Containing Alcohol: Monthly or less Hospital Course: Patient's hospital course was uneventful her initial delusions and paranoia slowly diminished with the cooperation and compliance with medication. She showed no behavioral problems. Conclusions now appear to have resolved. She denies suicidality homicidality voices or visions. She is compliant with medications is able contract to do no harm is excited about willing to go home she will be followed up with home health care thus patient will be discharged today with Rx times 1 month - Discharge Discharge Date: 07/29/18 - Discharge Diagnosis (1) Psychosis Code(s): F29 - Unspecified psychosis not due to a substance or known physiological condition Status: Acute Discharge Disposition: Home - Discharge Instructions Discharge Diet: Regular Diet Activities You Can Perform: Regular- No Restrictions - Discharge Time > 30 minutes Mental Status Examination Appearance: Appropriate Consciousness: Alert Orientation: Person, Date/Time Motor Activity: Abnormal gait (Uses walker left hip pain ) Speech: Unremarkable Language: Adequate Fund of Knowledge: Inadequate Attention and Concentration: Adequate (Fair) Memory: Unremarkable Mood: Appropriate Affect: Appropriate, Other (Good range and intensity) Thought Process & Associations: Intact, Linear Thought Content: Delusional (Decreasing) Hallucination Type: None Delusion Type: Paranoid (Decreasing) Suicidal Ideation: No Suicidal Plan: No Suicidal Intention: No Homicidal Ideation: No Homicidal Plan: No Homicidal Intention: No Insight: Poor Judgment: Poor Discharge/Advance Care Plan - Results Vital Signs: Last Vital Signs Temp 99.3 F 07/29/18 06:00 Pulse 80 07/29/18 06:00 Resp 15 07/29/18 06:00 BP 141/65 H 07/29/18 06:00 Pulse Ox 97 07/29/18 06:00 Lab Results: Laboratory Results Hemoglobin A1c 5.7 % (4.3-6.0) 07/11/18 11:47 Triglycerides 91 mg/dL (42-150) 07/11/18 11:47 Cholesterol 145 mg/dL (120-200) 07/11/18 11:47 LDL Cholesterol, Calc 52 mg/dL (0-99) 07/11/18 11:47 HDL Cholesterol 75.2 mg/dL (40.0-60.0) H 07/11/18 11:47 TSH 1.990 uIU/mL (0.358-3.740) 07/14/18 20:22 Free T4 0.81 ng/dL (0.76-1.46) 07/14/18 20:22 Free T3 2.01 pg/mL (2.18-3.98) L 07/14/18 20:22 Urine Culture Comments Culture not ind 07/17/18 21:45 Summary of Procedures: None done Imaging: ITS Impressions Hip X-Ray 07/14/18 00:00 CONCLUSION: 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 Associated varus deformity and marked bone resorption and cortical thinning but no acute fracture demonstrated. Head CT 07/17/18 12:21 CONCLUSION: 1. No acute intracranial abnormality identified. Pending Results: None - Medications Number of antipsychotic medications at discharge: 1 - Discharge Care Plan Goals to Promote Your Health: * To prevent worsening of your condition and complications * To maintain your health at the optimal level Directions to Meet Your Goals: Take your medications as prescribed Follow your dietary instruction Follow activity as directed Keep your appointments as scheduled Take your immunizations and boosters as scheduled If your symptoms worsen call your PCP, if no PCP go to Urgent Care Center or Emergency Room For 26/05 questions related to your inpatient stay or results of tests pending at discharge, please contact Dr. Tre Perry MD at Smoking is Dangerous to Your Health. Avoid second hand smoking (1) Psychosis Qualifiers: Psychosis type: brief psychotic disorder Qualified Code(s): F23 - Brief psychotic disorder
--- NOTE | 2018-07-29 16:51 | P.PNFP ---
Subjective Interval history: pt seen in psych this am doing very well skin not dry drinking Results - Labs Result diagrams: 07/23/18 06:03 07/23/18 06:03 Physical Exam Vital signs: Vital Signs 07/28/18 18:36 07/28/18 20:00 07/29/18 06:00 Temperature 97.6 F 99.3 F Pulse Rate 72 80 Respiratory Rate 18 16 15 Blood Pressure 116/55 L 141/65 H Pulse Oximetry 99 97 Intake & Output 07/28/18 07/29/18 07/29/18 18:59 06:59 18:59 Intake Total 1200 / 1200 580 / 580 480 / 480 Balance 1200 / 1200 580 / 580 480 / 480 Intake: Oral 1200 / 1200 480 / 480 480 / 480 Oral Supplement 100 / 100 Other: # Voids 3 2 Date of Last Bowel Movement 07/28/18 07/28/18 # Bowel Movements 1 - Constitutional no acute distress, mild distress - Routine HEENT Exam Head: Present: normocephalic - Routine Neck Exam Present: supple, full ROM - Routine Respiratory Exam Present: CTA bilaterally - Routine Cardiovascular Exam Present: RRR Assessment and Plan - Assessment (1) TERENCE (acute kidney injury) Code(s): N17.9 - Acute kidney failure, unspecified Status: Resolved Plan: Resolved as her last GFR is up to 68 ml/min, WNL. (2) Hip pain Code(s): M25.559 - Pain in unspecified hip Status: Acute Plan: assed xrays; She has been seen by Dr. Huizar and she is in no hurry to have corrective hip surgery due to reportedly loose hardware - Assessment and Plan TERENCE resolved, Will follow up after DC Ok to dc from Medical standpoint. 07/17/18- Transferred back to Psych unit yesterday. had episode this am of emesis and lightheadedness and lethargy. CT head negative, EKG ok Urine pending. Labs show no significant abnormalities. Seroquel increased yesterday. VSS, afebrile, will cont to monitor patients progress 07/18/18 - Episode yesterday likely due to increase in Seroquel but sx have resolved and she is without complaints this AM except LLE discomfort. 07/19/18 - Sounds like events of 2 days ago related to Seroquel and have resolved. Today she is again without complaints. - She believes she has made significant progress in her psych disorder and is hopeful for D/C soon. 07/29 doing well anticipate dc medically stable for dc home fu with grw office
== END 2018-07-29 15:15 | disposition home or self-care (01) ==
LOC: NEPJ 16:21 → NEDA 19:53 → H250 21:24 → H4EA 07-13 18:10 → H250 07-16 13:02
PROVIDERS: ADMIT Psychiatry & Neurology Psychiatry; ATTEND Psychiatry & Neurology Psychiatry

== ENCOUNTER 2018-09-16 12:04 | Inpatient (IN) ==
[2018-09-16 13:39] LABS: Baso % (Auto) 0.7 % (0.0-2.0); Eos # (Auto) 0.1 th/mm3 (0.0-0.4); Eos % (Auto) 0.8 % (0.0-4.0); Hematocrit 28.6 % (35.0-46.0); Hemoglobin 9.2 gm/dL (11.6-15.3); Lymph % (Auto) 15.6 % (9.0-44.0); Mean Corpuscular HGB Conc 32.2 % (32.0-36.0); Mean Corpuscular Hemoglobin 27.1 pg (27.0-34.0); Mean Platelet Volume 7.7 fL (7.0-11.0); Mono # (Auto) 0.6 th/mm3 (0.0-0.9); Mono % (Auto) 9.2 % (0.0-8.0); Neut # (Auto) 4.9 th/mm3 (1.8-7.7); Neut % (Auto) 73.7 % (16.0-70.0); Platelet Count 276 th/mm3 (150-450); Red Cell Distribution Width 15.7 % (11.6-17.2); White Blood Count 6.7 th/mm3 (4.0-11.0)
[2018-09-16 13:48] LABS: Bilirubin,Urine Negative (Negative); Clarity,Urine Clear (Clear); Glucose,Urine (UA) Negative (Negative); Leukocyte Esterase,Urine Negative (Negative); Mucus,Urine Few /lpf (Occasional); Nitrite,Urine Negative (Negative); Specific Gravity,Urine 1.008 (1.002-1.035)
[2018-09-16 13:49] LABS: Color,Urine Straw (Yellw/Straw)
[2018-09-16 13:52] LABS: Amphetamine Screen,Urine Neg (Neg); Barbiturate Screen,Urine Neg (Neg); Cannabinoid Screen,Urine Neg (Neg); Cocaine Screen,Urine Neg (Neg)
[2018-09-16 13:55] LABS: Albumin 3.5 g/dL (3.4-5.0); Anion Gap 7 meq/L (5-15); Aspartate Aminotransferase 16 U/L (15-37); Blood Urea Nitrogen 55 mg/dL (7-18); Calcium 9.3 mg/dL (8.5-10.1); Carbon Dioxide 24.2 meq/L (21.0-32.0); Chloride 108 meq/L (98-107); Glomerular Filtration Rate 73 mL/min (>89); Glucose,Random 91 mg/dL (74-106); Potassium 4.7 meq/L (3.5-5.1); Sodium 139 meq/L (136-145)
[2018-09-16 13:55] LABS: Opiate Screen,Urine Neg (Neg)
[2018-09-16 13:56] LABS: Alanine Aminotransferase 16 U/L (10-53)
[2018-09-16 14:06] LABS: Alkaline Phosphatase 114 U/L (45-117); Total Protein 7.5 g/dL (6.4-8.2)
--- NOTE | 2018-09-16 14:24 | ED ---
HPI General Chief complaint: Psychiatric Symptoms Stated complaint: Psych eval/OBPD Time Seen by Provider: 09/16/18 12:10 Source: patient Mode of arrival: EMS Limitations: no limitations History of Present Illness HPI narrative: Patients is a 73 year old male who comes in by EMS under a Gore Act. Per police, she has been calling claiming that she hears her neighbors threatening to kill her. She says they are drug dealers and they are threatening to shoot her. She also says they have threatened to kill her brother, who she has not spoken to in over 2 years. She says she thinks they followed her from [place]. She says she called her doctor today due to concerns that she was being threatened and said her plan was to jump out the window to escape them. She denies wanting her harm herself or anyone else. She denies any medical complaints. Related Data Previous Rx's Medication Instructions Recorded aspirin 81 mg PO DAILY #30 tab 07/29/18 ibuprofen 600 mg PO Q8HR PRN #90 tab 07/29/18 lidocaine [Lidoderm] 1 patch TRANSDERMAL DAILY #30 ea 07/29/18 metoprolol succinate 50 mg PO DAILY #30 tab 07/29/18 nifedipine 90 mg PO DAILY #30 tab 07/29/18 pantoprazole 40 mg PO DAILY #30 tab 07/29/18 pravastatin 40 mg PO HS #30 tab 07/29/18 risperidone 1 mg PO BID #60 tab 07/29/18 ropinirole 8 mg PO DAILY #30 tab 07/29/18 sucralfate 1 g PO Q6H #120 tab 07/29/18 Allergies Allergy/AdvReac Type Severity Reaction Status Date / Time haloperidol Allergy Severe MUSCLE Verified 09/16/18 12:31 SPASMS Review of Systems ROS: all other systems reviewed are negative Constitutional Denies chills and Denies fever(s) ENT Denies dizziness Cardiovascular Denies chest pain and Denies dyspnea Respiratory Denies cough Gastrointestinal Denies nausea and Denies vomiting Musculoskeletal Denies myalgias and Denies arthralgias Integumentary/Breasts Denies sores and Denies wounds Neurologic Denies focal weakness and Denies numbness Psychiatric Reports auditory hallucinations PMFSH Medical History Medical History Diabetes (Acute) History of hysterectomy (Acute) Lung cancer (Acute) Surgical History Surgical History History of dilatation and curettage (Acute) History of hip surgery (Acute) History of lobectomy of lung (Acute) Family History Family History Other CAD (coronary artery disease) Social History Social History Substance History: No History of Abuse Second Hand Smoke Exposure: Yes Smoking Status: Never smoker How Often Do You Have a Drink Containing Alcohol: Monthly or less Recent Travel in [facility] within the Last 8 Weeks: No Recent Out of Country Travel within the Last 8 Weeks: No Immunization History Tetanus Immunization: Unsure Exam Narrative Exam Narrative: GENERAL: Awake and alert, in no acute distress. SKIN: Focused skin assessment warm/dry. HEAD: Atraumatic. Normocephalic. EYES: Pupils equal and round. No scleral icterus. No injection or drainage. ENT: Mucous membranes pink and moist. NECK: Trachea midline. No JVD. CARDIOVASCULAR: Regular rate and rhythm. No murmur appreciated. RESPIRATORY: No accessory muscle use. Clear to auscultation. Breath sounds equal bilaterally. GASTROINTESTINAL: Abdomen soft, non-tender, nondistended. MUSCULOSKELETAL: No obvious deformities. No clubbing. No cyanosis. No edema. NEUROLOGICAL: Awake and alert. No obvious cranial nerve deficits. Motor grossly within normal limits. Normal speech. PSYCHIATRIC: Appropriate mood and affect; insight and judgment normal. Course Initial Documented Vital Signs Temperature 98.6 F 09/16/18 12:28 Pulse Rate 101 H 09/16/18 12:28 Respiratory Rate 20 09/16/18 12:28 Blood Pressure 149/72 H 09/16/18 12:28 Pulse Oximetry 98 09/16/18 12:28 Last Documented Vital Signs Temperature 98.6 F 09/16/18 12:28 Pulse Rate 101 H 09/16/18 12:28 Respiratory Rate 20 09/16/18 12:28 Blood Pressure 149/72 H 09/16/18 12:28 Pulse Oximetry 98 09/16/18 12:28 Medical Decision Making MDM Narrative Medical decision making narrative: Patient is a 73 year old female brought in by EMS due to active delusions and concern for her safety. She has no medical complaints at this time. Labs sent show no acute abnormalities. Patient medically cleared for psychiatric evaluation. Medical Screen Exam Complete: Yes Emergency Medical Condition: Yes Differential Diagnosis Differential Diagnosis: psychosis vs dehydration vs UTI Medical Records Medical records reviewed: Yes I reviewed the patient's medical records. Lab Data Lab results reviewed: Yes I reviewed the patient's lab results. Result diagrams: 09/16/18 13:24 09/16/18 13:24 Lab Results 09/16/18 09/16/18 09/16/18 Range/Units 13:18 13:18 13:24 WBC 6.7 (4.0-11.0) th/mm3 RBC 3.40 L (4.00-5.30) mil/mm3 Hgb 9.2 L (11.6-15.3) gm/dL Hct 28.6 L (35.0-46.0) % MCV 84.0 (80.0-100.0) fL MCH 27.1 (27.0-34.0) pg MCHC 32.2 (32.0-36.0) % RDW 15.7 (11.6-17.2) % Plt Count 276 (150-450) th/mm3 MPV 7.7 (7.0-11.0) fL Neut % (Auto) 73.7 H (16.0-70.0) % Lymph % (Auto) 15.6 (9.0-44.0) % [place] % (Auto) 9.2 H (0.0-8.0) % Eos % (Auto) 0.8 (0.0-4.0) % Baso % (Auto) 0.7 (0.0-2.0) % Neut # (Auto) 4.9 (1.8-7.7) th/mm3 Lymph # (Auto) 1.0 (1.0-4.8) th/mm3 [place] # (Auto) 0.6 (0.0-0.9) th/mm3 Eos # (Auto) 0.1 (0.0-0.4) th/mm3 Baso # (Auto) 0.0 (0.0-0.2) th/mm3 WBC Differential . Differential Comment Auto diff final Sodium (136-145) meq/L Potassium (3.5-5.1) meq/L Chloride (98-107) meq/L Carbon Dioxide (21.0-32.0) meq/L Anion Gap (5-15) meq/L BUN (7-18) mg/dL Creatinine (0.50-1.00) mg/dL Estimated GFR (>89) mL/min Random Glucose (74-106) mg/dL Calcium (8.5-10.1) mg/dL Total Bilirubin (0.2-1.0) mg/dL AST (15-37) U/L ALT (10-53) U/L Alkaline Phosphatase (45-117) U/L Total Protein (6.4-8.2) g/dL Albumin (3.4-5.0) g/dL TSH (0.358-3.740) uIU/mL Urine Color Straw (Yellw/Straw) Urine Clarity Clear (Clear) Urine pH 5.0 (5.0-8.5) Ur Specific [place] 1.008 (1.002-1.035) Urine Protein Negative (Neg-Trace) mg/dL Urine Glucose (UA) Negative (Negative) mg/dL Urine Ketones Negative (Negative) mg/dL Urine Occult Blood Small H (Negative) Urine Nitrate Negative (Negative) Urine Bilirubin Negative (Negative) Urine Urobilinogen Less than 2 (Less than 2) mg/dL Ur Leukocyte Esterase Negative (Negative) Urine RBC Less than 1 (0-3) /hpf Urine Mucus Few H (Occasional) /lpf Micro UA Comment Culture not ind Ur Microscopic Review Not Reportable Urine Culture Comments Culture not ind Urine Opiates Screen Neg (Neg) Ur Barbiturates Screen Neg (Neg) Ur Amphetamines Screen Neg (Neg) U Benzodiazepines Scrn Neg (Neg) Urine Cocaine Screen Neg (Neg) U Cannabinoids Screen Neg (Neg) Serum Alcohol (0-5) mg/dL 09/16/18 Range/Units 13:24 WBC (4.0-11.0) th/mm3 RBC (4.00-5.30) mil/mm3 Hgb (11.6-15.3) gm/dL Hct (35.0-46.0) % MCV (80.0-100.0) fL MCH (27.0-34.0) pg MCHC (32.0-36.0) % RDW (11.6-17.2) % Plt Count (150-450) th/mm3 MPV (7.0-11.0) fL Neut % (Auto) (16.0-70.0) % Lymph % (Auto) (9.0-44.0) % [place] % (Auto) (0.0-8.0) % Eos % (Auto) (0.0-4.0) % Baso % (Auto) (0.0-2.0) % Neut # (Auto) (1.8-7.7) th/mm3 Lymph # (Auto) (1.0-4.8) th/mm3 [place] # (Auto) (0.0-0.9) th/mm3 Eos # (Auto) (0.0-0.4) th/mm3 Baso # (Auto) (0.0-0.2) th/mm3 WBC Differential Differential Comment Sodium 139 (136-145) meq/L Potassium 4.7 (3.5-5.1) meq/L Chloride 108 H (98-107) meq/L Carbon Dioxide 24.2 (21.0-32.0) meq/L Anion Gap 7 (5-15) meq/L BUN 55 H (7-18) mg/dL Creatinine 0.77 (0.50-1.00) mg/dL Estimated GFR 73 L (>89) mL/min Random Glucose 91 (74-106) mg/dL Calcium 9.3 (8.5-10.1) mg/dL Total Bilirubin 0.2 (0.2-1.0) mg/dL AST 16 (15-37) U/L ALT 16 (10-53) U/L Alkaline Phosphatase 114 (45-117) U/L Total Protein 7.5 (6.4-8.2) g/dL Albumin 3.5 (3.4-5.0) g/dL TSH 2.210 (0.358-3.740) uIU/mL Urine Color (Yellw/Straw) Urine Clarity (Clear) Urine pH (5.0-8.5) Ur Specific [place] (1.002-1.035) Urine Protein (Neg-Trace) mg/dL Urine Glucose (UA) (Negative) mg/dL Urine Ketones (Negative) mg/dL Urine Occult Blood (Negative) Urine Nitrate (Negative) Urine Bilirubin (Negative) Urine Urobilinogen (Less than 2) mg/dL Ur Leukocyte Esterase (Negative) Urine RBC (0-3) /hpf Urine Mucus (Occasional) /lpf Micro UA Comment Ur Microscopic Review Urine Culture Comments Urine Opiates Screen (Neg) Ur Barbiturates Screen (Neg) Ur Amphetamines Screen (Neg) U Benzodiazepines Scrn (Neg) Urine Cocaine Screen (Neg) U Cannabinoids Screen (Neg) Serum Alcohol Less than 3 (0-5) mg/dL Discharge Plan Discharge Disposition Patient Disposition: 30 Still Patient Discharge Condition Condition: Stable Physicians Team ED Provider: Keyonna Vega Primary Care Provider: Fred Anaya Rxs /Orders / Referrals /Forms Prescriptions: No Action pravastatin 40 mg Tablet 40 mg PO HS Qty: 30 RF: 0 pantoprazole 40 mg Tablet,Delayed Release (Dr/Ec) 40 mg PO DAILY Qty: 30 RF: 0 lidocaine [Lidoderm] 5 % Adhesive Patch,Medicated 1 patch Transdermal DAILY Qty: 30 RF: 0 ibuprofen 600 mg Tablet 600 mg PO Q8HR PRN (Reason: Pain) Qty: 90 RF: 0 risperidone 1 mg Tablet,Disintegrating 1 mg PO BID Qty: 60 RF: 0 nifedipine 90 mg Tablet Extended Release 90 mg PO DAILY Qty: 30 RF: 0 metoprolol succinate 50 mg Tablet Extended Release 24 Hr 50 mg PO DAILY Qty: 30 RF: 0 sucralfate 1 gram Tablet 1 g PO Q6H Qty: 120 RF: 0 aspirin 81 mg Tablet,Chewable 81 mg PO DAILY Qty: 30 RF: 0 ropinirole 4 mg Tablet 8 mg PO DAILY Qty: 30 RF: 0 Discharge Interventions Interventions: Vital Signs Last Done: 09/16/18 12:28 Status ED Status: With Doctor
[2018-09-17] MEDS ORDERED: Aluminum/Magnesium/Simethacone Susp 30 ML UDC PO PRN (12:31)
--- NOTE | 2018-09-17 16:34 | P.HPPSY ---
Provisional Diagnosis Admission Date: September 17, 2018 12:30 [place] [facility].: Unspecified psychosis Competence Certification of Person's Competence To Provide Express and Informed Consent I have personally examined Cathy Isaac, a person being served at [facility] on, September 17, 2018 1615. Express and informed consent means consent voluntarily given in writing, by a competent person, after sufficient explanation and disclosure of the subject matter involved to enable the person to make a knowing and willful decision without any element of force, fraud, deceit, duress, or other form of constraint or coercion. This person is 18 years of age or older, is not now known to be incompetent to consent to treatment with a guardian advocate, and does not have a health care surrogate or proxy currently making medical treatment decisions. I have found this person to be one of the following: [] Competent to provide express and informed consent, as defined above, for voluntary admission to this facility and is competent to provide express and informed consent for treatment. He/she has the consistent capacity to make well reasoned, willful, and knowing decisions concerning his or her medical or mental health treatment. The person fully and consistently understands the purpose of the admission for examination/placement and is fully capable of personally exercising all rights assured [place] [] Incompetent to provide express and informed consent to voluntary admission, and this is incompetent to provide express and informed consent to treatment. The person must be transferred to involuntary status and a petition for a guardian advocate filed with the Circuit Court. [x] Refusing to provide express and informed consent to voluntary admission but is competent to provide express and informed consent for treatment. The person must be discharged or transferred to involuntary status. Form shall be completed within 24 hours of a person's arrival at the receiving facility and filed in the clinical record of each person: 1. Admitted on a voluntary basis 2. Permitted to provide express and informed consent to his/her own treatment 3. Allowed to transfer from involuntary to voluntary status 4. Prior to permitting a person to consent to his or her own treatment after having been previously found incompetent to consent to treatment. History of Present Illness Capacity: Has capacity History of Present Illness: The patient is a 73-year-old woman, single, no children, domiciled alone in [facility], supported by Social Security benefits, with a past psychiatric history of unspecified psychosis, depression and dissociative disorder as per patient, 3 previous psychiatric admissions last at [facility] in July 2018, no previous suicide attempts or self-injurious behavior, she was discharged on Risperdal 1 mg twice daily, with a past medical history significant for hypertension, diabetes, history of lung cancer status post right lung resection and chemotherapy, in remission, who comes in by EMS under a Gore Act. Per police, she has been calling claiming that she hears her neighbors threatening to kill her. She says they are drug dealers and they are threatening to shoot her. She also says they have threatened to kill her brother, who she has not spoken to in over 2 years. She says she thinks they followed her from [place]. She says she called her doctor today due to concerns that she was being threatened and said her plan was to jump out the window to escape them. On the psychiatric evaluation she is calm, cooperative, she is oriented x3, but quite perseverant in the fact that people are trying to kill her, they are watching her through the windows, that she has been pushing chairs and desk in her door and barricading herself against these people. She says that these people are able to come here to the hospital to kill her. She seems to be very distressed and paranoid. She says that she has no being able to sleep for at least 3 days just thinking about these people. She described her as white, black at men who hate me, who want to kill him. She denies suicidal and homicidal ideation, she denies auditory hallucinations Family psychiatric history: Patient reports grandfather with history of dementia Past psychiatric history: psychiatric history of unspecified psychosis, depression and dissociative disorder as per patient, 3 previous psychiatric admissions last at [facility] in July 2018, no previous suicide attempts or self-injurious behavior, she was discharged on Risperdal 1 mg twice daily Substance use history: Alcohol use 1-2 times a week DM, HTN, history of lung cancer status post lung resection and chemotherapy Allergies: Haldol Social history: Single, no children, domiciled alone, unemployed on Social Security benefits collateral contact is patient's brother Dixon Isaac [phone] - Inpatient Certification I certify that the inpatient services were ordered in accordance with Medicare regulations governing the order. This includes certification that hospital inpatient services are reasonable and necessary and in the case of services not specified as inpatient-only under 42 CFR 419.22(n), that they are appropriately provided as inpatient services in accordance to with the 2-midnight benchmark under 43 CFR 412.3(e) I certify that inpatient psychiatric hospital services are medically necessary. Evaluation and treatment and/or diagnostic testing are expected to improve the patient's condition. The patient needs on a daily basis, active treatment furnished directly by or requiring the supervision of inpatient psychiatric facility personnel. Estimated Total Length of Stay (Days): 7 Plans for Post Hospital Care: Not yet determined PMFSH - History History Provided By: Patient - Medical History Medical History: Medical History (Last Reviewed 09/16/18 @ 14:19 by Keyonna Vega MD) Diabetes History of hysterectomy Lung cancer - Surgical History Surgical History: Surgical History (Last Reviewed 09/16/18 @ 14:19 by Keyonna Vega MD) History of dilatation and curettage History of hip surgery History of lobectomy of lung - Family History Family History: Family History (Last Reviewed 09/16/18 @ 14:19 by Keyonna Vega MD) Other CAD (coronary artery disease) - Tobacco History Second Hand Smoke Exposure: No Smoking Status: Never smoker - Alcohol History How Often Do You Have a Drink Containing Alcohol: 2 to 4 times a month - Substance Use History Substance History: No History of Abuse - Travel History Recent Travel in the [place] Within the Last 8 Weeks: No Recent Travel Out of the Country Within the Last 8 Weeks: No - Immunization History Tetanus Immunization: >5 Years Hx Influenza Vaccine This Season: Yes Medications and Allergies Active Medications: Active Medications Acetaminophen (Tylenol) 650 mg PO Q4H PRN PRN Reason: Pain 1-5 or Temp >101F Al Hydrox/Mg Hydrox/Simethicone (Mag-Al Plus Susp Liq) 30 ml PO Q6H PRN PRN Reason: DYSPEPSIA Al Hydroxide/Mg Hydroxide (Milk Of Magnesia Liq) 30 ml PO Q12H PRN PRN Reason: Mild Constipation Aspirin (Aspirin Chew) 81 mg PO DAILY [facility] Metoprolol Succinate (Toprol Xl) 50 mg PO DAILY [facility] Quetiapine Fumarate (Seroquel) 25 mg PO BID@0900,1200 AMANDA Allergies Allergy/AdvReac Type Severity Reaction Status Date / Time haloperidol Allergy Severe MUSCLE Verified 09/16/18 12:31 SPASMS Results - Labs CBC & Chem 7: 09/16/18 13:24 09/16/18 13:24 Labs: Laboratory Results - last 24 hr 09/16/18 21:42 POC Glucose 182 H Exam Vital signs: Vital Signs 09/16/18 16:42 09/16/18 20:00 09/17/18 04:51 Temperature Pulse Rate 100 H 96 H 75 Respiratory Rate 18 18 20 Blood Pressure 144/65 H 121/61 142/67 H Pulse Oximetry 98 98 99 09/17/18 07:00 09/17/18 12:56 09/17/18 15:09 Temperature 97.8 F 98.7 F Pulse Rate 74 78 85 Respiratory Rate 16 16 Blood Pressure 142/74 H 148/78 H 136/60 Pulse Oximetry 98 Intake & Output 09/16/18 09/17/18 09/17/18 18:59 06:59 18:59 Weight 74.843 kg 68.946 kg Other: Weight On Admission 68.946 kg Mental Status Examination Appearance: Appropriate Consciousness: Alert Orientation: x4 Motor Activity: Normal gait Speech: Unremarkable Language: Adequate Fund of Knowledge: Adequate Attention and Concentration: Adequate Memory: Unremarkable Mood: Irritable Affect: Irritable Thought Process & Associations: Goal directed Thought Content: Bizarre thinking, Hallucinations, Preoccupations Hallucination Type: Visual Delusion Type: Bizarre, Paranoid Suicidal Ideation: No Suicidal Plan: No Suicidal Intention: No Homicidal Ideation: No Homicidal Plan: No Homicidal Intention: No Insight: Poor Judgment: Poor Assessment and Plan - Assessment (1) Unspecified psychosis Code(s): F29 - Unspecified psychosis not due to a substance or known physiological condition Status: Acute - Plan Plan: On psychiatric evaluation today the patient endorse paranoid and persecutory delusions as well as audiovisual hallucinations for which the patient seems to be very distressed and anxious. Fully oriented x3, and she does not seem to have any gross cognitive impairment. Patient will d benefit of psychiatric admission and starting of quetiapine 25 mg p.o. twice daily for psychosis. She was able to sign for medications. We will continue medications for chronic medical illnesses, we will consult hospitalist for assistance in management for medical illnesses. We will continue to monitor mood and behavior. Patient will be admitted under involuntary hospitalization, second opinion requested. Justification for Continued Inpatient Stay: to be admitted
[2018-09-17] MEDS: Acetaminophen 325 MG Tablet PO PRN ×2 (16:40→21:19)
[2018-09-18 08:00] LABS: Carbon Dioxide 26.7 meq/L (21.0-32.0); Chol/HDL Ratio 2.31 Ratio; HDL Cholesterol 77.4 mg/dL (40.0-60.0); Potassium 4.1 meq/L (3.5-5.1)
[2018-09-18] MEDS: QUEtiapine 25 MG Tablet PO SCH ×2 (08:06→12:41)
[2018-09-18] MEDS: Acetaminophen 325 MG Tablet PO PRN (08:07)
--- NOTE | 2018-09-18 11:42 | P.PNPSY ---
Subjective Remarks: Patient initially seen and admitted by Dr. Mistry,'s H&P reviewed and agreed with. Dr. Mistry assigned first opinion petition supporting Gore act. I agree patient meets criteria for further inpatient psychiatric hospitalization of the Gore act. Patient seen by me in her room with nurse Rose present throughout session patient is an anxious lady complaining of chronic pain in her left hip. She also complains of feeling people were stalking her in her house around her house threatening to kill her. There appears to be an auditory component to this but no visual component. Patient does have a history of mental health issues was hospitalized here in July of this year also. Less I will cosign second opinion petition supporting Gore act. I also talked with Dr. Fred Rodríguez who is patient's outpatient physician. He is willing to see her in consultation also for now we will continue the Seroquel twice a day as ordered. I do feel she has capacity to sign of her medication and her treatment Review of Systems Patient complains of chronic pain in her left hip that has had a previous repair /replacement Mental Status Examination Appearance: Appropriate, Disheveled (Somewhat) Consciousness: Alert Orientation: x4 Motor Activity: Other Speech: Unremarkable, Hesitant Language: Adequate Fund of Knowledge: Adequate Attention and Concentration: Adequate Memory: Unremarkable Mood: Irritable, Other Affect: Other (Slight increased range and intensity) Thought Process & Associations: Goal directed Thought Content: Bizarre thinking, Hallucinations, Preoccupations Hallucination Type: Visual Delusion Type: Bizarre, Paranoid Suicidal Ideation: No Suicidal Plan: No Suicidal Intention: No Homicidal Ideation: No Homicidal Plan: No Homicidal Intention: No Insight: Poor Judgment: Poor Assessment and Plan - Assessment (1) Unspecified psychosis Code(s): F29 - Unspecified psychosis not due to a substance or known physiological condition Status: Acute (2) Delusional disorder Code(s): F22 - Delusional disorders Status: Acute - Plan Plan: Patient remains quite psychotic and delusional, with little insight, for now continue treatment at this time she does meet Gore criteria thus I will cosign first opinion petition supporting Gore act Justification for Continued Inpatient Stay: At this time patient would decompensate a place to a lower level of care Discharge Planning: To be determined return home or possibly be placed in an [facility]pc type situation Request Healthcare Surrogate/Guardian Advocate?: No (1) Unspecified psychosis Qualifiers: Psychosis type: brief psychotic disorder Qualified Code(s): F23 - Brief psychotic disorder
[2018-09-18] MEDS: Sucralfate 1 GM Tablet PO SCH ×2 (12:41→17:22)
[2018-09-18 15:03] LABS: Hemoglobin A1c 5.5 % (4.3-6.0)
[2018-09-19] MEDS: Sucralfate 1 GM Tablet PO SCH ×3 (05:40→17:12)
[2018-09-19] MEDS: Lidocaine 5% Patch T-DERMAL SCH (09:49)
[2018-09-19] MEDS: QUEtiapine 25 MG Tablet PO SCH ×2 (09:49→12:30)
--- NOTE | 2018-09-19 11:02 | P.CONFP ---
History of Present Illness Service: Family Medicine Consult date: 09/18/18 Reason for Consult: Eval and medically manage in rehab. Primary Care Provider: Fred Anaya DO Chief Complaint: Hallucinations History of Present Illness: Bao Acted as patient presented with active hallucinations and paranoia. Review of Systems Constitutional: Reports body ache(s) Eyes: Denies blind spots, Denies blurry vision, Denies bulging eyes Ears, Nose, Mouth, and Throat: Denies abnormal hearing, Denies bleeding gums Cardiovascular: Denies chest pain Respiratory: Denies chest congestion, Denies cough Gastrointestinal: Denies abdominal pain Genitourinary: Denies painful urination, Denies pelvic pain Musculoskeletal: Reports body aches, Reports radiating pain into limb Skin/Breast: Denies change in skin color Neurologic: Denies abnormal hearing, Denies abnormal movements Psychiatric: Reports anxiety, Reports behavioral changes, Reports hearing things others do not hear, Reports paranoia, Reports seeing things others do not see, Denies thoughts of hurting/killing others, Denies thoughts of hurting/ killing yourself Endocrine: Denies cold intolerance, Denies excessive sweating Hematologic/Lymphatic: Denies easy bleeding, Denies easy bruising Allergic/Immunologic: Denies GI upset with certain foods PMFSH - History History Provided By: Patient - Medical History Medical History: Medical History (Last Updated 09/19/18 @ 10:59 by Franko Manley) Diabetes (Acute) Lung cancer (Acute) History of hysterectomy - Surgical History Surgical History: Surgical History (Last Updated 09/19/18 @ 10:59 by Franko Manley) History of hip surgery (Acute) History of lobectomy of lung (Acute) History of dilatation and curettage (Acute) - Family History Family History: Family History (Last Reviewed 09/16/18 @ 14:19 by Keyonna Vega MD) Other CAD (coronary artery disease) - Social History I have reviewed the patient's Social History: Yes - Tobacco History Second Hand Smoke Exposure: No Smoking Status: Never smoker - Alcohol History How Often Do You Have a Drink Containing Alcohol: 2 to 4 times a month - Substance Use History Substance History: No History of Abuse - Travel History History of Recent Travel: No Recent Travel in the [place] Within the Last 8 Weeks: No Recent Travel Out of the Country Within the Last 8 Weeks: No - Immunization History Tetanus Immunization: >5 Years Hx Influenza Vaccine This Season: Yes Medications and Allergies Active Medications: Active Medications Acetaminophen (Tylenol) 650 mg PO Q4H PRN PRN Reason: Pain 1-5 or Temp >101F Last Admin: 09/18/18 08:07 Dose: 650 mg Al Hydrox/Mg Hydrox/Simethicone (Mag-Al Plus Susp Liq) 30 ml PO Q6H PRN PRN Reason: DYSPEPSIA Al Hydroxide/Mg Hydroxide (Milk Of Magnesia Liq) 30 ml PO Q12H PRN PRN Reason: Mild Constipation Aspirin (Aspirin Chew) 81 mg PO DAILY [facility] Last Admin: 09/19/18 09:49 Dose: 81 mg Hydroxyzine HCl (Atarax) 50 mg PO Q6H PRN PRN Reason: ANXIETY Lidocaine HCl (Lidoderm 5% Patch.12 Hr) 1 patch T-DERMAL DAILY [facility] Last Admin: 09/19/18 09:49 Dose: 1 patch Metoprolol Succinate (Toprol Xl) 50 mg PO DAILY [facility] Last Admin: 09/19/18 09:49 Dose: 50 mg Nifedipine (Procardia Xl) 90 mg PO DAILY [facility] Last Admin: 09/19/18 09:49 Dose: 90 mg Pantoprazole Sodium (Protonix) 40 mg PO DAILY [facility] Last Admin: 09/19/18 09:49 Dose: 40 mg Pravastatin Sodium (Pravachol) 40 mg PO HS [facility] Last Admin: 09/18/18 22:06 Dose: 40 mg Quetiapine Fumarate (Seroquel) 25 mg PO BID@0900,1200 [facility] Last Admin: 09/19/18 09:49 Dose: 25 mg Ropinirole HCl (Requip) 8 mg PO DAILY [facility] Last Admin: 09/19/18 09:50 Dose: 8 mg Sucralfate (Carafate) 1 gm PO Q6H [facility] Last Admin: 09/19/18 05:40 Dose: 1 gm Allergies Allergy/AdvReac Type Severity Reaction Status Date / Time haloperidol Allergy Severe MUSCLE Verified 09/16/18 12:31 SPASMS Exam Vital signs: Vital Signs 09/18/18 18:08 09/19/18 05:55 Temperature 98.4 F 97.6 F Pulse Rate 82 75 Respiratory Rate 18 16 Blood Pressure 133/77 115/58 L Pulse Oximetry 97 97 Intake & Output 09/18/18 09/19/18 09/19/18 18:59 06:59 18:59 Intake Total 480 / 480 Balance 480 / 480 Intake: Oral 480 / 480 - Constitutional no acute distress - Routine HEENT Exam Head: Present: normocephalic, atraumatic Eye: Present: PERRL, normal accommodation ENT: Present: mucous membranes moist - Routine Neck Exam Present: supple, full ROM - Routine Respiratory Exam Present: CTA bilaterally - Routine Cardiovascular Exam Present: RRR, S1, S2 - Routine Abdominal Exam Present: soft, normoactive bowel sounds - Routine Extremities Exam Absent: cyanosis - Routine Skin Exam Present: intact - Routine Neurological Exam Present: alert Results - Labs Result diagrams: 09/16/18 13:24 09/18/18 06:22 Assessment and Plan - Assessment (1) Unspecified psychosis Code(s): F29 - Unspecified psychosis not due to a substance or known physiological condition Status: Acute Qualifiers: Psychosis type: brief psychotic disorder Qualified Code(s): F23 - Brief psychotic disorder Plan: Psych seeing and adjusting meds. - Assessment and Plan We will follow Psych recommendations. We will monitor her VS and labs and adjust meds as needed to maintain stable VS. Discussed Condition With: Patient and RN
--- NOTE | 2018-09-19 12:29 | P.PNPSY ---
Subjective Remarks: Reviewed electronic medical records and discussed case with staff. Follow-up was conducted in the patient's room with MELINA Bower present. Patient reports that she had difficulty sleeping but that her appetite has been good. She denies hearing voices at this facility however, continues to endorse that she fears for her life at her home. She reports that she feels "reasonably safe" here. She has no complaints at this time. Mental Status Examination Appearance: Appropriate, Disheveled (Somewhat) Consciousness: Alert Orientation: x4 Motor Activity: Other Speech: Unremarkable, Hesitant Language: Adequate Fund of Knowledge: Adequate Attention and Concentration: Adequate Memory: Unremarkable Mood: Irritable, Other Affect: Other (Slight increased range and intensity) Thought Process & Associations: Goal directed Thought Content: Bizarre thinking, Hallucinations, Preoccupations Hallucination Type: Visual Delusion Type: Bizarre, Paranoid Suicidal Ideation: No Suicidal Plan: No Suicidal Intention: No Homicidal Ideation: No Homicidal Plan: No Homicidal Intention: No Insight: Poor Judgment: Poor Assessment and Plan - Assessment (1) Delusional disorder Code(s): F22 - Delusional disorders Status: Acute - Plan Plan: Patient will be reevaluated by the attending psychiatrist. Continue with current treatment plan. Justification for Continued Inpatient Stay: Moving this patient to a less restrictive environment would likely result in decompensation. Request Healthcare Surrogate/Guardian Advocate?: No
--- NOTE | 2018-09-19 14:26 | ECG ---
Date Performed: 09/18/2018 Time Performed: 13:36:14 PTAGE: 73 years EKG: Nonspecific T-wave change in precordial leads Borderline first degree AV block ABNORMAL ECG PREVIOUS TRACING : 07/17/2018 10.59 Compared to previous tracing, the T-wave inversion in V2 an d V3 is new. The R-wave progression decreased in V3, which may be due to lead placement. The changes are Nonspecific. DOCTOR: Jd Santos Interpretating Date/Time 09/19/2018 14:25:31
[2018-09-20] MEDS: Sucralfate 1 GM Tablet PO SCH ×2 (00:50→05:59)
[2018-09-20 06:51] VITALS: TEMP 97.6
--- NOTE | 2018-09-20 09:02 | P.PNPSY ---
Subjective Remarks: Reviewed electronic record and discussed with nursing staff. Rounded with MELINA Bower. Patient in her room. Delusional and paranoid. States that people are coming into her room and trying to take her to the government. She is irritable , angry and wants to file reports. Per nursing she is eating , sleeping and medication compliant. Review of Systems All other systems reviewed negative except as stated in HPI Mental Status Examination Appearance: Appropriate, Disheveled (Somewhat) Consciousness: Alert Orientation: x4 Motor Activity: Other Speech: Unremarkable, Hesitant Language: Adequate Fund of Knowledge: Adequate Attention and Concentration: Adequate Memory: Unremarkable Mood: Angry, Irritable Affect: Other (Slight increased range and intensity) Thought Process & Associations: Goal directed Thought Content: Bizarre thinking, Hallucinations, Preoccupations Hallucination Type: Visual Delusion Type: Bizarre, Paranoid Suicidal Ideation: No Suicidal Plan: No Suicidal Intention: No Homicidal Ideation: No Homicidal Plan: No Homicidal Intention: No Insight: Poor Judgment: Poor Assessment and Plan - Assessment (1) Unspecified psychosis Code(s): F29 - Unspecified psychosis not due to a substance or known physiological condition Status: Acute - Plan Plan: Patient will be reevaluated by the attending psychiatrist. Continue with current treatment plan. Justification for Continued Inpatient Stay: Moving patient to a less restrictive environment may result in her decompensation. Request Healthcare Surrogate/Guardian Advocate?: No (1) Unspecified psychosis Qualifiers: Psychosis type: brief psychotic disorder Qualified Code(s): F23 - Brief psychotic disorder
[2018-09-20] MEDS: Lidocaine 5% Patch T-DERMAL SCH (10:27)
[2018-09-20] MEDS: QUEtiapine 25 MG Tablet PO SCH (10:29)
--- NOTE | 2018-09-20 11:08 | P.PNFP ---
Subjective Interval history: She still C/O people watching her and she remains paranoid. She tells me the pain is improved with Ultram. Results - Labs Result diagrams: 09/16/18 13:24 09/18/18 06:22 Physical Exam Vital signs: Vital Signs 09/19/18 18:23 09/20/18 06:00 Temperature 97.7 F 97.6 F Pulse Rate 74 65 Respiratory Rate 16 18 Blood Pressure 123/58 L 134/63 Pulse Oximetry 98 99 Intake & Output 09/19/18 09/20/18 09/20/18 18:59 06:59 18:59 Intake Total 460 / 460 Balance 460 / 460 Intake: Oral 360 / 360 Oral Supplement 100 / 100 Other: # Voids 2 # Bowel Movements 0 - Constitutional no acute distress - Routine HEENT Exam Head: Present: normocephalic Eye: Present: PERRL, normal accommodation ENT: Present: mucous membranes moist - Routine Neck Exam Present: supple, full ROM - Routine Respiratory Exam Present: CTA bilaterally - Routine Cardiovascular Exam Present: RRR, S1, S2 - Routine Abdominal Exam Present: soft, normoactive bowel sounds. Absent: tenderness - Routine Extremities Exam Absent: cyanosis - Routine Skin Exam Present: intact - Routine Neurological Exam Present: alert paranoid - Detailed Neurological Exam: Coma Scale Eye Opening: Spontaneous Verbal Response: Confused Motor Response: Obey commands Tyner Coma Scale Total: 14 - Routine Psychiatric Exam Present: paranoid Assessment and Plan - Assessment (1) Unspecified psychosis Code(s): F29 - Unspecified psychosis not due to a substance or known physiological condition Status: Acute Plan: 09/19/18 - Psych seeing and adjusting meds. 09/20/18 - She remains paranoid and psych si monitoring. Leg pain is improved with Ultram. - Assessment and Plan 09/19/18 - We will follow Psych recommendations. We will monitor her VS and labs and adjust meds as needed to maintain stable VS. 09/20/18 - Psych following and no changes in her status overnight. Discussed Condition With: Patient and RN (1) Unspecified psychosis Qualifiers: Psychosis type: brief psychotic disorder Qualified Code(s): F23 - Brief psychotic disorder
[2018-09-20 12:11] LABS: ABG Base Excess -3.8 mmol/L (-2-2); ABG PCO2 45 mmHg (38-42); ABG PO2 149 mmHG (61-120)
[2018-09-20 13:27] VITALS: BP 92/52
[2018-09-20 13:30] VITALS: PULSE 39; RESP 18; O2SAT 100
--- NOTE | 2018-09-21 07:54 | P.DSPSY ---
Psychiatry Discharge Summary Inpatient Psychiatric care?: Yes Advance Directives: Unknown Reason for Unknown:: Due to Patient Condition Mental Health Advance Directive: No Health Care Proxy: No - Admission Admission Date: September 17, 2018 12:30 - Admission Diagnosis (1) Delusional disorder Code(s): F22 - Delusional disorders Brief History: The patient is a 73-year-old woman, single, no children, domiciled alone in [facility], supported by Social Security benefits, with a past psychiatric history of unspecified psychosis, depression and dissociative disorder as per patient, 3 previous psychiatric admissions last at [facility] in July 2018, no previous suicide attempts or self-injurious behavior, she was discharged on Risperdal 1 mg twice daily, with a past medical history significant for hypertension, diabetes, history of lung cancer status post right lung resection and chemotherapy, in remission, who comes in by EMS under a [place] Act. Per police, she has been calling claiming that she hears her neighbors threatening to kill her. She says they are drug dealers and they are threatening to shoot her. She also says they have threatened to kill her brother, who she has not spoken to in over 2 years. She says she thinks they followed her from [place]. She says she called her doctor today due to concerns that she was being threatened and said her plan was to jump out the window to escape them. On the psychiatric evaluation she is calm, cooperative, she is oriented x3, but quite perseverant in the fact that people are trying to kill her, they are watching her through the windows, that she has been pushing chairs and desk in her door and barricading herself against these people. She says that these people are able to come here to the hospital to kill her. She seems to be very distressed and paranoid. She says that she has no being able to sleep for at least 3 days just thinking about these people. She described her as white, black at men who hate me, who want to kill him. She denies suicidal and homicidal ideation, she denies auditory hallucinations Family psychiatric history: Patient reports grandfather with history of dementia Past psychiatric history: psychiatric history of unspecified psychosis, depression and dissociative disorder as per patient, 3 previous psychiatric admissions last at [facility] in July 2018, no previous suicide attempts or self-injurious behavior, she was discharged on Risperdal 1 mg twice daily Substance use history: Alcohol use 1-2 times a week DM, HTN, history of lung cancer status post lung resection and chemotherapy Allergies: Haldol Social history: Single, no children, domiciled alone, unemployed on Social Security benefits collateral contact is patient's brother Dxion Isaac [phone] Tobacco Use In Past 30 Days: No How Often Do You Have a Drink Containing Alcohol: 2 to 4 times a month Hospital Course: T111/20 nursing staff noted patient to have a significant altered mental status with nausea lethargy hypotension. A telemetry Was called. Patient was transferred to the medical unit. Patient discharged from [facility] - Discharge Discharge Date: 09/20/18 - Discharge Diagnosis (1) Delusional disorder Code(s): F22 - Delusional disorders Status: Acute Discharge Disposition: [facility] intensive care - Discharge Instructions Discharge Diet: Regular Diet Activities You Can Perform: See Additionl Instruction (Per admitting treatment team) - Discharge Time <= 30 minutes Mental Status Examination Appearance: Appropriate, Disheveled (Somewhat) Consciousness: Alert Orientation: x4 Motor Activity: Other Speech: Unremarkable, Hesitant Language: Adequate Fund of Knowledge: Adequate Attention and Concentration: Adequate Memory: Unremarkable Mood: Angry, Irritable Affect: Other (Slight increased range and intensity) Thought Process & Associations: Goal directed Thought Content: Bizarre thinking, Hallucinations, Preoccupations Hallucination Type: Visual Delusion Type: Bizarre, Paranoid Suicidal Ideation: No Suicidal Plan: No Suicidal Intention: No Homicidal Ideation: No Homicidal Plan: No Homicidal Intention: No Insight: Poor Judgment: Poor Discharge/Advance Care Plan - Results Vital Signs: Last Vital Signs Temp 97.6 F 09/20/18 06:00 Pulse 39 L 09/20/18 11:45 Resp 18 09/20/18 11:45 BP 92/52 L 09/20/18 11:45 Pulse Ox 100 09/20/18 11:45 Lab Results: Abnormal Lab Results 09/20/18 09/20/18 11:47 11:57 Puncture Site Left radial Patient Temperature 98.6 O2 Saturation 96 ABG pH 7.31 L ABG pCO2 45 H ABG pO2 149 H ABG HCO3 22 ABG O2 Content 12.3 ABG Base Excess -3.8 L ABG Methemoglobin 1.6 Mac Test Present Hemoglobin 8.8 L Carboxyhemoglobin 0.7 O2 Delivery Device Nasal cannula Liter Flow 2.00 Critical Value No POC Glucose 132 H Laboratory Results Hemoglobin A1c 5.5 % (4.3-6.0) 09/18/18 06:22 Triglycerides 97 mg/dL (42-150) 09/18/18 06:22 Cholesterol 179 mg/dL (120-200) 09/18/18 06:22 LDL Cholesterol, Calc 82 mg/dL (0-99) 09/18/18 06:22 HDL Cholesterol 77.4 mg/dL (40.0-60.0) H 09/18/18 06:22 TSH 2.210 uIU/mL (0.358-3.740) 09/16/18 13:24 Urine Culture Comments Culture not ind 09/16/18 13:18 Summary of Procedures: None done Pending Results: None - Medications Number of antipsychotic medications at discharge: 0 - Discharge Care Plan Goals to Promote Your Health: * To prevent worsening of your condition and complications * To maintain your health at the optimal level Directions to Meet Your Goals: Take your medications as prescribed Follow your dietary instruction Follow activity as directed Keep your appointments as scheduled Take your immunizations and boosters as scheduled If your symptoms worsen call your PCP, if no PCP go to Urgent Care Center or Emergency Room For 26/05 questions related to your inpatient stay or results of tests pending at discharge, please contact Dr. Tre Perry MD at Smoking is Dangerous to Your Health. Avoid second hand smoking
== END 2018-09-20 12:20 | disposition short-term general hospital (02) | DRG 885 ==
LOC: NEPD 12:04 → NEDA 09-17 12:30 → H250 09-17 14:45
PROVIDERS: ADMIT Psychiatry & Neurology Psychiatry; ATTEND Psychiatry & Neurology Psychiatry

== ENCOUNTER 2018-09-24 13:26 | Inpatient (IN) ==
[2018-09-24] MEDS ORDERED: Bisacodyl 10 MG Supp RECTAL PRN (14:15)
[2018-09-24] MEDS ORDERED: Aluminum/Magnesium/Simethacone Susp 30 ML UDC PO PRN (14:15)
[2018-09-24] MEDS: QUEtiapine 25 MG Tablet PO SCH ×2 (14:22→20:53)
[2018-09-24] MEDS ORDERED: LORazepam 0.5 MG Tablet PO PRN (14:43)
[2018-09-24] MEDS ORDERED: Acetaminophen 325 MG Tablet PO PRN (14:43)
[2018-09-24] MEDS ORDERED: LORazepam 1 MG Tablet PO PRN (14:43)
[2018-09-24 18:37] LABS: Calcium 9.1 mg/dL (8.5-10.1); Carbon Dioxide 26.5 meq/L (21.0-32.0); HDL Cholesterol 70.4 mg/dL (40.0-60.0); Potassium 4.4 meq/L (3.5-5.1)
[2018-09-24] MEDS: Senna/Docusate Sodium 8.6/50 MG Tablet PO SCH (20:52)
[2018-09-25] MEDS: Senna/Docusate Sodium 8.6/50 MG Tablet PO SCH (09:16)
[2018-09-25] MEDS: QUEtiapine 25 MG Tablet PO SCH (09:17)
[2018-09-25] MEDS ORDERED: Ibuprofen 600 MG Tablet PO PRN (09:45)
[2018-09-25] MEDS: Sucralfate Liq 1 GM/10 ML UDC PO SCH ×3 (10:22→22:31)
[2018-09-25 10:25] LABS: Calcium 9.4 mg/dL (8.5-10.1); Carbon Dioxide 25.7 meq/L (21.0-32.0); Chol/HDL Ratio 2.05 Ratio; HDL Cholesterol 75.8 mg/dL (40.0-60.0); Potassium 4.3 meq/L (3.5-5.1)
[2018-09-25 12:18] LABS: Hemoglobin A1c 5.4 % (4.3-6.0)
[2018-09-25 12:52] LABS: Hemoglobin A1c 5.5 % (4.3-6.0)
--- NOTE | 2018-09-25 16:27 | P.PNPSY ---
Subjective Remarks: Reviewed electronic medical records and discussed case with staff. Follow-up was conducted in the patient's room. She was recently transferred back to the psychiatric unit from the medical side. Today she is reporting that she would like to go to an assisted living facility. She reports her mood is being "so-so ". She becomes irritable when asked about her delusion and states, "they are not here, the people I worry about, so no". This is when asked if she is concerned about them during her stay here. She reports that she did not sleep well last night but her appetite has been good. Assessment and Plan - Assessment (1) Delusional disorder Code(s): F22 - Delusional disorders Status: Acute - Plan Plan: Patient will be reevaluated by the attending psychiatrist. Continue with current treatment plan. Discharge planning is in progress. Justification for Continued Inpatient Stay: Moving this patient to a less restrictive environment would likely result in decompensation.
--- NOTE | 2018-09-25 19:29 | P.CONIM ---
History of Present Illness Service: HOSPITALIST Consult date: 09/25/18 Requesting Physician: Clayton Nelson Reason for Consult: HTN Primary Care Provider: UNKNOWN Chief Complaint: weakness History of Present Illness: 73-year-old white female who was recently admitted under Gore act for psychosis. Patient reported hearing voices, contacted her physician's office and was instructed to contact the police who then escorted her to the hospital under [place] act. She has been in the inpatient psychiatric unit for several days when developed bradycardia into the 30s associated with vomiting and hypotension. Patient was admitted to ICU for hypotension and bradycardia. Patient was then found to have a significant anemia with hgb of 7.3 and received a transfusion, followed by GI consult for GIB. They recommended an outpatient colonscopy and felt she was stable without need for urgent endoscopy, with no further bleeding. Patients was clinically stable for transfer back to psychiatry unit, where she was having some mild nausea and vomited earlier today. She currently denies nv and was able to eat later in the day. She denies shortness of breath, palpiations, dizziness or other related symptoms Review of Systems Review of Systems: all other systems reviewed are negative [facility] Medical History Medical History Diabetes (Acute) Lung cancer (Acute) History of hysterectomy (Acute) Surgical History Surgical History History of hip surgery (Acute) History of lobectomy of lung (Acute) History of dilatation and curettage (Acute) Family History Family History Other CAD (coronary artery disease) Social History Social History Substance History: No History of Abuse Second Hand Smoke Exposure: No Smoking Status: Never smoker How Often Do You Have a Drink Containing Alcohol: Unable to Obtain Hx Recent Travel: No Immunization History Tetanus Immunization: Unsure Hx Influenza Vaccine This Season: No Medications and Allergies Allergies Allergy/AdvReac Type Severity Reaction Status Date / Time haloperidol Allergy Severe MUSCLE Verified 09/16/18 12:31 SPASMS Active Medications: Active Medications Metoprolol Tartrate (Lopressor) 25 mg PO BID [facility] Nifedipine (Procardia Xl) 30 mg PO DAILY@0600 [facility] Ondansetron HCl (Zofran Odt) 4 mg PO Q6H PRN PRN Reason: NAUSEA Last Admin: 09/25/18 12:25 Dose: 4 mg Pantoprazole Sodium (Protonix) 40 mg PO DAILY [facility] Last Admin: 09/25/18 09:55 Dose: 40 mg Pravastatin Sodium (Pravachol) 40 mg PO HS [facility] Risperidone (Risperdal) 1 mg PO BID [facility] Last Admin: 09/25/18 14:02 Dose: 1 mg Ropinirole HCl (Requip) 8 mg PO DAILY [facility] Last Admin: 09/25/18 09:55 Dose: 8 mg Sucralfate (Carafate Liq) 1 gm PO Q6H [facility] Last Admin: 09/25/18 15:50 Dose: 1 gm Physical Exam Vital signs: Last Vital Signs Temp 98.8 F 09/25/18 17:18 Pulse 93 H 09/25/18 17:18 Resp 16 09/25/18 17:18 BP 122/66 09/25/18 17:18 Pulse Ox 98 09/25/18 17:18 Intake & Output 09/23/18 09/24/18 09/25/18 09/26/18 06:59 06:59 06:59 06:59 Intake Total 960 / 960 Balance 960 / 960 Weight 67.9 kg This is a well-developed well-nourished 73yo f awake alert oriented to person and place, pleasant in no acute distress, flat affect HEENT normocephalic atraumatic, Pupils equal reactive, sclerae anicteric, extraocular motion intact, mucosa is moist. posterior pharynx clear NECK supple no JVD trachea midline thyroid smooth not enlarged ANT CHEST WALL without mass or tenderness to palpation HEART S1-S2 regular without murmur gallops or clicks LUNGS clear to auscultation without wheeze rales or rhonchi , full symmetric expansion BACK exam is no CVA tenderness or mass ABDOMEN soft nondistended positive bowel sounds no guarding rebound rigidity LYMPH NODES no cervical, axillary or inguinal adenopathy noted EXTREMITIES no clubbing cyanosis or significant edema, peripheral pulses palpable +2 NEUROLOGIC cranial nerves II through XII appear grossly intact, strength is 5 out of 5 symmetrical no clonus or rigidity SKIN warm and dry with good turgor, no other rash or sores noted Results Labs CBC & Chem 7: 09/25/18 08:50 Assessment and Plan (1) Delusional disorder: Code(s): F22 - Delusional disorders Status: Acute Plan MOOD DISORDER NOS per psych HTN - cont home meds nifedipine and lopressor, but will adjust doses , can titrate back to home doses as needed, monitor vitals closely ANEMIA -possible gib cont ppi and avoid nsaids, s/p transfusion , will need outpatient GI followup, stable cont mvi DYSLIPIDEMIA - resume statin DM - diet controlled DJD - tylenol prn, stop nsaids N/V - cont ppi supportive care, fu w gi thank you for consult, will follow, call as needed Discussed Condition With: nursing and patient
[2018-09-25] MEDS: Metoprolol Tartrate 25 MG Tablet PO SCH (20:37)
[2018-09-26] MEDS: Sucralfate Liq 1 GM/10 ML UDC PO SCH ×4 (05:17→23:43)
[2018-09-26] MEDS: Metoprolol Tartrate 25 MG Tablet PO SCH (08:28)
--- NOTE | 2018-09-26 11:58 | P.PNPSY ---
Subjective Remarks: Reviewed electronic medical records and discussed case with staff. Follow-up was conducted in the day room with nurse present. Patient is complaining of indigestion this morning. Her nurse reports she has been compliant with her medications. Patient states she is sleeping and eating well. She rates her mood as "okay". She is somewhat discharge focused. I have advised her to discuss placement with her counselor on Friday as she has some strong ideas on this. I am going to move her Protonix to an earlier time before she takes her morning psychotropics to see if that does not help with the indigestion. Assessment and Plan - Assessment (1) Delusional disorder Code(s): F22 - Delusional disorders Status: Acute - Plan Plan: Patient will be reevaluated by the attending psychiatrist. Continue with current treatment plan. Patient has some definite ideas about a safe discharge plan. I have encouraged her to speak to the counselor on Friday. Justification for Continued Inpatient Stay: Moving this patient to a less restrictive environment would likely result in decompensation.
--- NOTE | 2018-09-26 13:33 | P.PNIM ---
Subjective Interval history: IM consult Follow up re htn and abd pain 73yo f admitted with delusional disorder had near syncopal episode transfered to medcial unit for management revealing symptomatic anemia s/p transfusion. blood pressure medications adjusted and she was stable for outpatient GI evaluation. pt seen and examined in followup today, she did not vomit this morning but is having some indigestion still, epigastric pain that resolved now, she is eating ok, and having some palpitations, no cp or sob, no dizziness Physical Exam Vital signs: Last Vital Signs Temp 97.9 F 09/26/18 06:00 Pulse 87 09/26/18 06:00 Resp 18 09/26/18 06:00 BP 143/64 H 09/26/18 06:00 Pulse Ox 94 L 09/26/18 06:00 Intake & Output 09/24/18 09/25/18 09/26/18 09/27/18 06:59 06:59 06:59 06:59 Intake Total 1420 / 1420 Balance 1420 / 1420 Weight 67.9 kg aaox3 pleasant subdued affect heart s1s2 reg lungs clear no wrr, abd soft nondt pos bs no mass or tenderness ext no edema no calf tenderness, pulses +2 Results Labs CBC & Chem 7: 09/25/18 08:50 Assessment and Plan (1) Delusional disorder: Code(s): F22 - Delusional disorders Status: Acute Plan MOOD/DELUSIONAL DISORDER NOS continue management per psych appears stable. HTN - cont home meds nifedipine and lopressor, will titrate beta morgan as tolerated ANEMIA -possible gib cont ppi and avoid nsaids, s/p transfusion , will need outpatient GI followup, stable cont mvi, will recheck hh in am. DYSLIPIDEMIA - resume statin DM - diet controlled DJD - tylenol prn, stop nsaids for now. N/V/INDIGESTION - suspect gerd, pud, cont ppi supportive care, fu w gi, will add pm protonix, and cont prn zofran. will follow, call as needed Progress Note: Quality VTE Deep Vein Thrombosis/Pulmonary Embolism Present on Admission: No
[2018-09-27] MEDS: Sucralfate Liq 1 GM/10 ML UDC PO SCH ×3 (05:24→16:31)
--- NOTE | 2018-09-27 07:51 | P.PNPSY ---
Subjective Remarks: Reviewed electronic medical records and discussed case with staff. Follow-up was conducted in the day room with nurse present. Patient is euthymic. Talking about last week when she needed a blood transfusion. Denies any indigestion today, eating well. States she is sleeping well . Feels that she is back to herself. Continuous to be suspicious, in no distress. Medication compliant. Denies SI/HI. Review of Systems All other systems reviewed negative except as stated in HPI Mental Status Examination Appearance: Appropriate Consciousness: Alert Orientation: Person, Situation Motor Activity: Normal gait Speech: Unremarkable Language: Adequate Fund of Knowledge: Adequate Attention and Concentration: Adequate Memory: Recent (intact) Mood: Good Affect: Euthymic Thought Process & Associations: Linear Thought Content: Appropriate Hallucination Type: None Delusion Type: Paranoid Suicidal Ideation: No Suicidal Plan: No Suicidal Intention: No Homicidal Ideation: No Homicidal Plan: No Homicidal Intention: No Insight: Adequate Judgment: Adequate Assessment and Plan - Assessment (1) Delusional disorder Code(s): F22 - Delusional disorders Status: Acute - Plan Plan: Continue current treatment plan. Justification for Continued Inpatient Stay: Moving patient to a less restrictive environment may result in her decompensation.
[2018-09-27 08:33] LABS: Hematocrit 31.5 % (35.0-46.0); Hemoglobin 10.2 gm/dL (11.6-15.3); Mean Corpuscular HGB Conc 32.4 % (32.0-36.0); Mean Corpuscular Hemoglobin 27.3 pg (27.0-34.0); Mean Corpuscular Volume 84.2 fL (80.0-100.0); Mean Platelet Volume 8.8 fL (7.0-11.0); Platelet Count 246 th/mm3 (150-450); Red Blood Count 3.74 mil/mm3 (4.00-5.30); Red Cell Distribution Width 16.4 % (11.6-17.2); White Blood Count 7.3 th/mm3 (4.0-11.0)
--- NOTE | 2018-09-27 12:42 | P.PNIM ---
Subjective Interval history: IM consult Follow up re htn and epigastric pain and indigestion 73yo f admitted with delusional disorder had near syncopal episode transfered to medcial unit for management revealing symptomatic anemia s/p transfusion. blood pressure medications adjusted and she was stable for outpatient GI evaluation and transferred back to psychiatry for ongoing eval and management pt seen and examined in followup today, doing better, sitting up in chair, no more barth, no sob, no cp, no nv, tolerating diet Physical Exam Vital signs: Last Vital Signs Temp 98.1 F 09/27/18 04:24 Pulse 66 09/27/18 04:24 Resp 18 09/27/18 04:24 BP 152/68 H 09/27/18 04:24 Pulse Ox 94 L 09/27/18 04:24 Intake & Output 09/25/18 09/26/18 09/27/18 09/28/18 06:59 06:59 06:59 06:59 Intake Total 1420 / 1420 Balance 1420 / 1420 Weight 67.9 kg aaox3 pleasant subdued affect heart s1s2 reg lungs clear no wrr, abd soft nontender pos bs no mass ext +chornic edema L leg no calf tenderness, pulses +2 Results Labs CBC & Chem 7: 09/27/18 07:24 09/25/18 08:50 Assessment and Plan (1) Delusional disorder: Code(s): F22 - Delusional disorders Status: Acute Plan MOOD/DELUSIONAL DISORDER NOS continue management per psych appears stable. HTN - cont home meds nifedipine and lopressor, will titrate beta morgan as tolerated ANEMIA -possible gib cont ppi and avoid nsaids, s/p transfusion , will need outpatient GI followup, stable cont mvi, repeat hgb stable. DYSLIPIDEMIA - resume statin DM - diet controlled DJD - tylenol prn, stop nsaids for now. N/V/INDIGESTION - suspect gerd, pud, cont ppi supportive care, fu w gi, will add pm protonix, and cont prn zofran. will follow, call as needed Progress Note: Quality VTE Deep Vein Thrombosis/Pulmonary Embolism Present on Admission: No
[2018-09-28] MEDS: Sucralfate Liq 1 GM/10 ML UDC PO SCH ×5 (00:25→20:48)
[2018-09-28] MEDS ORDERED: Ibuprofen 600 MG Tablet PO PRN (01:10)
--- NOTE | 2018-09-28 10:40 | P.TTN ---
- Patient Problems Problems: 1. Discharge planning 2. Medication compliance 3. Knowledge deficit 4. Lack of coping skills - Progress Toward Goals Provider Present: Dr. Sandee Perry Provider Input: 09/28/18: Pt has been newly re-admitted, following a recent discharge of several days ago. D/c options have not been determined as yet. - Discharge Plan 09/28/18: Pt has been newly re-admitted, following a recent discharge of several days ago. D/c options have not been determined as yet. - Documentation Teaching Recipient: Patient
--- NOTE | 2018-09-28 15:04 | P.HPPSY ---
Provisional Diagnosis Admission Date: September 24, 2018 14:05 [place] I.: Delusional disorder Competence Certification of Person's Competence To Provide Express and Informed Consent I have personally examined Cathy Isaac, a person being served at [facility] on, September 28, 2018 1504. Express and informed consent means consent voluntarily given in writing, by a competent person, after sufficient explanation and disclosure of the subject matter involved to enable the person to make a knowing and willful decision without any element of force, fraud, deceit, duress, or other form of constraint or coercion. This person is 18 years of age or older, is not now known to be incompetent to consent to treatment with a guardian advocate, and does not have a health care surrogate or proxy currently making medical treatment decisions. I have found this person to be one of the following: [] Competent to provide express and informed consent, as defined above, for voluntary admission to this facility and is competent to provide express and informed consent for treatment. He/she has the consistent capacity to make well reasoned, willful, and knowing decisions concerning his or her medical or mental health treatment. The person fully and consistently understands the purpose of the admission for examination/placement and is fully capable of personally exercising all rights assured [place] [] Incompetent to provide express and informed consent to voluntary admission, and this is incompetent to provide express and informed consent to treatment. The person must be transferred to involuntary status and a petition for a guardian advocate filed with the Circuit Court. [xxx] Refusing to provide express and informed consent to voluntary admission but is competent to provide express and informed consent for treatment. The person must be discharged or transferred to involuntary status. Form shall be completed within 24 hours of a person's arrival at the receiving facility and filed in the clinical record of each person: 1. Admitted on a voluntary basis 2. Permitted to provide express and informed consent to his/her own treatment 3. Allowed to transfer from involuntary to voluntary status 4. Prior to permitting a person to consent to his or her own treatment after having been previously found incompetent to consent to treatment. History of Present Illness Capacity: Lacks capacity (Patient denies capacity to sign for admission patient is capacity to sign for medication and treatment) History of Present Illness: Patient a 70-year-old white female was initially admitted to my service on visit [id number]. Patient developed medical issues that led to her being transferred to the intensive care unit on 09/20 through 09/24 with visit [id number] patient medically cleared and then transferred back down here. Patient was seen in consultation by Dr. Mistry while on the medical unit. Patient seen today by me with medical student Jessica and nurse. Patient is alert continues diffusely confused and psychotic the delusions that initially caused her hospitalization persist at this time for now we will continue treatment continue medications continue the consultations with the hospitalist is also - Inpatient Certification I certify that the inpatient services were ordered in accordance with Medicare regulations governing the order. This includes certification that hospital inpatient services are reasonable and necessary and in the case of services not specified as inpatient-only under 42 CFR 419.22(n), that they are appropriately provided as inpatient services in accordance to with the 2-midnight benchmark under 43 CFR 412.3(e) I certify that inpatient psychiatric hospital services are medically necessary. Evaluation and treatment and/or diagnostic testing are expected to improve the patient's condition. The patient needs on a daily basis, active treatment furnished directly by or requiring the supervision of inpatient psychiatric facility personnel. Estimated Total Length of Stay (Days): 7 Plans for Post Hospital Care: Home Review of Systems All other systems reviewed negative except as stated in HPI PMFSH - History History Provided By: Patient - Medical History Medical History: Medical History (Last Reviewed 09/28/18 @ 15:09 by Tre Perry MD) Diabetes (Acute) Lung cancer (Acute) History of hysterectomy - Surgical History Surgical History: Surgical History (Last Reviewed 09/28/18 @ 15:10 by Tre Perry MD) History of hip surgery (Acute) History of lobectomy of lung (Acute) History of dilatation and curettage (Acute) - Family History Family History: Family History (Last Reviewed 09/28/18 @ 15:10 by Tre Perry MD) Other CAD (coronary artery disease) - Social History I have reviewed the patient's Social History: Yes - Tobacco History Second Hand Smoke Exposure: No Smoking Status: Never smoker - Alcohol History How Often Do You Have a Drink Containing Alcohol: Unable to Obtain - Substance Use History Substance History: No History of Abuse - Travel History History of Recent Travel: No - Immunization History Tetanus Immunization: Unsure Hx Influenza Vaccine This Season: Yes Quality Measures - Psychiatric History Psychological trauma history: Denies at this time Violence risk to others in the last 6 months: Low Violence risk to self in the last 6 months: Low - Substance Abuse History Drug or alcohol use in the past 12 months: Denies - Patient Strengths Patient's strengths (minimum of 2): Verbal able [facility] Medications and Allergies Active Medications: Active Medications Al Hydrox/Mg Hydrox/Simethicone (Mag-Al Plus Susp Liq) 30 ml PO Q6H PRN PRN Reason: DYSPEPSIA Al Hydroxide/Mg Hydroxide (Milk Of Magnesia Liq) 30 ml PO Q12H PRN PRN Reason: Mild Constipation Diphenhydramine HCl (Benadryl) 50 mg PO HS PRN PRN Reason: INSOMNIA Ibuprofen (Motrin) 600 mg PO Q8HR PRN PRN Reason: PAIN SCALE 1 TO 10 Last Admin: 09/28/18 01:42 Dose: 600 mg Metoprolol Succinate (Toprol Xl) 50 mg PO DAILY [facility] Last Admin: 09/28/18 09:12 Dose: 50 mg Nifedipine (Procardia Xl) 30 mg PO DAILY@0600 [facility] Last Admin: 09/28/18 05:25 Dose: 30 mg Ondansetron HCl (Zofran Odt) 4 mg PO Q6H PRN PRN Reason: NAUSEA Last Admin: 09/26/18 07:29 Dose: 4 mg Pantoprazole Sodium (Protonix) 40 mg PO DAILY@0800,1600 [facility] Last Admin: 09/28/18 09:13 Dose: 40 mg Pravastatin Sodium (Pravachol) 40 mg PO HS [facility] Last Admin: 09/27/18 20:22 Dose: 40 mg Risperidone (Risperdal) 1 mg PO BID [facility] Last Admin: 09/28/18 09:12 Dose: 1 mg Ropinirole HCl (Requip) 8 mg PO DAILY [facility] Last Admin: 09/28/18 09:12 Dose: 8 mg Sucralfate (Carafate Liq) 1 gm PO Q6H [facility] Last Admin: 09/28/18 10:10 Dose: 1 gm Allergies Allergy/AdvReac Type Severity Reaction Status Date / Time haloperidol Allergy Severe MUSCLE Verified 09/16/18 12:31 SPASMS Results - Labs CBC & Chem 7: 09/27/18 07:24 09/25/18 08:50 Exam Vital signs: Vital Signs 09/27/18 16:20 09/28/18 01:30 09/28/18 05:28 Temperature 98.6 F 98.1 F 97.8 F Pulse Rate 71 74 75 Respiratory Rate 16 18 16 Blood Pressure 138/63 136/61 149/69 H Pulse Oximetry 96 97 96 Intake & Output 09/27/18 09/28/18 09/28/18 18:59 06:59 18:59 Intake Total 1680 / 1680 580 / 580 Balance 1680 / 1680 580 / 580 Weight 72.6 kg Intake: Oral 1680 / 1680 480 / 480 Oral Supplement 100 / 100 Other: # Voids 3 2 Date of Last Bowel Movement 09/27/18 09/27/18 # Bowel Movements 1 0 Narrative: Patient laying in her bed in no acute distress she is in no respiratory distress. No complaints of abdominal pain or chest pain. Patient moving all 4 extremities well lying in bed Mental Status Examination Appearance: Appropriate Consciousness: Alert Orientation: Person, Situation Motor Activity: Normal gait Speech: Unremarkable Language: Adequate Fund of Knowledge: Adequate Attention and Concentration: Adequate Memory: Recent (intact) Mood: Other (Euthymic to somewhat restricted) Affect: Other (Slight decreased range and intensity) Thought Process & Associations: Linear Thought Content: Appropriate, Delusional Hallucination Type: None Delusion Type: Paranoid Suicidal Ideation: No Suicidal Plan: No Suicidal Intention: No Homicidal Ideation: No Homicidal Plan: No Homicidal Intention: No Insight: Adequate (Fair) Judgment: Adequate (Fair) Assessment and Plan - Plan Plan: Patient remains delusional and psychotic, but she is no behavior problems at this time complaint medications Justification for Continued Inpatient Stay: At this time patient with decompensated placed on a lower level of care Discharge Planning: Hopefully to return home Request Healthcare Surrogate/Guardian Advocate?: No
--- NOTE | 2018-09-28 17:04 | P.PN ---
Subjective Interval history: Follow-up visit for near syncopal episode and symptomatic anemia. Patient seen and examined sitting up in the day room and appears to be in no acute distress. She complains of a frontal headache with pressure when she leans forward. Denies any fevers, chills, cough, nasal drainage or discharge. She denies any further lightheadedness, dizziness denies shortness of breath, cough, chest pain. Patient also reports constipation, positive flatus, denies abdominal pain , no nausea or vomiting. Nursing staff does not report any acute events or concerns other than constipation and headaches. Physical Exam Vital signs: Vital Signs 09/28/18 01:30 09/28/18 05:28 09/28/18 17:01 Temperature 98.1 F 97.8 F 97.7 F Pulse Rate 74 75 70 Respiratory Rate 18 16 18 Blood Pressure 136/61 149/69 H 134/72 Pulse Oximetry 97 96 96 Intake & Output 09/27/18 09/28/18 09/28/18 18:59 06:59 18:59 Intake Total 1680 / 1680 580 / 580 1440 / 1440 Balance 1680 / 1680 580 / 580 1440 / 1440 Weight 72.6 kg Intake: Oral 1680 / 1680 480 / 480 1440 / 1440 Oral Supplement 100 / 100 Other: # Voids 3 2 4 Date of Last Bowel Movement 09/27/18 09/27/18 # Bowel Movements 1 0 Narrative: GENERAL: Well-developed thin female in no acute distress SKIN: Warm and dry. HEAD: Atraumatic. Normocephalic. EYES: Pupils round. No scleral icterus. No injection or drainage. ENT: No nasal bleeding or discharge, no sinus pressure or tenderness. Mucous membranes pink and moist. NECK: Trachea midline. CARDIOVASCULAR: Regular rate and rhythm. RESPIRATORY: No accessory muscle use. Clear to auscultation. Breath sounds equal bilaterally. GASTROINTESTINAL: Abdomen soft, non-tender, nondistended. Hypoactive bowel sounds. MUSCULOSKELETAL: Extremities without clubbing, cyanosis, or edema. No obvious deformities. NEUROLOGICAL: Awake, alert, oriented x3. No obvious cranial nerve deficits. Motor grossly within normal limits. Normal speech. PSYCHIATRIC: Appropriate mood and affect; insight and judgment normal. Results - Labs CBC & Chem 7: 09/27/18 07:24 09/25/18 08:50 Assessment and Plan - Assessment (1) Delusional disorder Code(s): F22 - Delusional disorders Status: Acute - Plan 73-year-old female recently admitted for psychosis after she was hearing voices. She was admitted to psychiatric unit however during her stay in inpatient psych unit she developed bradycardia, hypotension, and vomiting with noted anemia. She was transferred to medical ICU and transfused with blood. She was cleared medically and now discharged to outpatient psychiatry unit once again. [facility] has been consulted to assist with ongoing medical management. Hypertension, controlled Dyslipidemia, chronic -Continue metoprolol, nifedipine, and statin -Blood pressure and heart rate stable Diabetes mellitus -Diet controlled Degenerative disc disease, chronic -PRN Tylenol, patient previously on tramadol however states that she weaned herself off of this. Anemia -Noted patient during her hospitalization and recommended colonoscopy. - s/p blood transfusion with H&H stable -Continue Protonix twice daily -Mild anemia, asymptomatic Constipation, acute -Bowel regimen, encourage hydration. Migraine headaches -Trial of Imitrex, encouraged to use Tylenol as well DVT prophylaxisambulation Discussed Condition With: Patient and RN
[2018-09-28] MEDS ORDERED: Bisacodyl 10 MG Supp RECTAL PRN (17:07)
[2018-09-28] MEDS: Senna/Docusate Sodium 8.6/50 MG Tablet PO SCH (20:06)
[2018-09-29] MEDS: Sucralfate Liq 1 GM/10 ML UDC PO SCH ×4 (03:58→20:52)
[2018-09-29] MEDS: Senna/Docusate Sodium 8.6/50 MG Tablet PO SCH ×2 (08:19→20:09)
--- NOTE | 2018-09-29 09:05 | P.PNFP ---
Subjective Interval history: Seen in ay room Complains of head ache last night relieved with Tylenol Denies, CP,. SOB, Abdominal pain, NV or diarrhea. Results - Labs Result diagrams: 09/27/18 07:24 09/25/18 08:50 Physical Exam Vital signs: Vital Signs 09/28/18 17:01 09/29/18 05:17 Temperature 97.7 F 97.7 F Pulse Rate 70 77 Respiratory Rate 18 17 Blood Pressure 134/72 140/65 Pulse Oximetry 96 96 Intake & Output 09/28/18 09/29/18 09/29/18 18:59 06:59 18:59 Intake Total 1440 / 1440 340 / 340 Balance 1440 / 1440 340 / 340 Intake: Oral 1440 / 1440 240 / 240 Oral Supplement 100 / 100 Other: # Voids 4 2 Date of Last Bowel Movement 09/27/18 09/27/18 # Bowel Movements 1 - Constitutional no acute distress - Routine HEENT Exam Eye: Present: PERRL ENT: Present: mucous membranes moist - Routine Neck Exam Present: supple - Routine Respiratory Exam Present: CTA bilaterally - Routine Cardiovascular Exam Present: S1, S2 - Routine Abdominal Exam Present: soft, normoactive bowel sounds - Routine Neurological Exam Present: alert - Routine Psychiatric Exam Present: cooperative Assessment and Plan - Assessment (1) Unspecified psychosis Code(s): F29 - Unspecified psychosis not due to a substance or known physiological condition Status: Acute Plan: Under care of Psych, follow rec's (2) Anemia Code(s): D64.9 - Anemia, unspecified Status: Acute Plan: transfused this visit HGB stable (3) HTN (hypertension) Code(s): I10 - Essential (primary) hypertension Status: Acute Plan: cont current treatment, monitor (4) Diabetes Code(s): E11.9 - Type 2 diabetes mellitus without complications Status: Acute Plan: Controlled with diet, metformin on hold - Assessment and Plan labs in am.
--- NOTE | 2018-09-29 09:51 | P.PNPSY ---
Subjective Remarks: Patient seen in the [facility] with nurse Halina and medical student Jessica, chart reviewed, patient compliant medication. Patient calm and pleasant with me though still verifies her belief that people are around her apartment but not here. He states she will never go back to that apartment. She is willing to discuss possible placement in a halfway facility versus [facility]. For that I will continue medications no change Review of Systems All other systems reviewed negative except as stated in HPI Mental Status Examination Appearance: Appropriate Consciousness: Alert Orientation: Person, Place, Situation Motor Activity: Normal gait Speech: Unremarkable Language: Adequate Fund of Knowledge: Adequate Attention and Concentration: Adequate Memory: Recent (intact) Mood: Other (Euthymic to somewhat restricted) Affect: Other (Slight decreased range and intensity) Thought Process & Associations: Linear Thought Content: Appropriate, Delusional Hallucination Type: None Delusion Type: Paranoid Suicidal Ideation: No Suicidal Plan: No Suicidal Intention: No Homicidal Ideation: No Homicidal Plan: No Homicidal Intention: No Insight: Adequate (Fair) Judgment: Adequate (Fair) Assessment and Plan - Plan Plan: Patient remains delusional with no behavioral problems, compliant medication. For now continue treatment Justification for Continued Inpatient Stay: At this time patient with decompensated placed in a lower level of care Discharge Planning: We will work with family to find appropriate placement perhaps in a halfway facility Request Healthcare Surrogate/Guardian Advocate?: No
[2018-09-30] MEDS: Sucralfate Liq 1 GM/10 ML UDC PO SCH ×4 (04:31→21:45)
[2018-09-30 06:26] LABS: Hematocrit 31.2 % (35.0-46.0); Hemoglobin 10.2 gm/dL (11.6-15.3); Mean Corpuscular HGB Conc 32.8 % (32.0-36.0); Mean Corpuscular Volume 82.4 fL (80.0-100.0); Mean Platelet Volume 8.7 fL (7.0-11.0); Platelet Count 251 th/mm3 (150-450); Red Blood Count 3.79 mil/mm3 (4.00-5.30); Red Cell Distribution Width 16.5 % (11.6-17.2); White Blood Count 7.4 th/mm3 (4.0-11.0)
[2018-09-30 06:57] LABS: Calcium 9.5 mg/dL (8.5-10.1); Carbon Dioxide 26.9 meq/L (21.0-32.0); Potassium 4.2 meq/L (3.5-5.1)
[2018-09-30] MEDS: Senna/Docusate Sodium 8.6/50 MG Tablet PO SCH ×2 (08:24→20:35)
--- NOTE | 2018-09-30 09:43 | P.PNPSY ---
Subjective Remarks: Patient seen in her room with nurse Iwona and family practice resident Lydia , chart reviewed, patient compliant medication. Patient resting quietly in bed she is calm and cooperative her delusions persist but there is a decrease in the intensity of her paranoia. She is quite willing to go to a placement. It appears [facility] has given initial approval for her to that facility of the other wedding of the appropriate forms to be filled out for now continue treatment Review of Systems All other systems reviewed negative except as stated in HPI Mental Status Examination Appearance: Appropriate Consciousness: Alert Orientation: Person, Place, Situation Motor Activity: Normal gait Speech: Unremarkable Language: Adequate Fund of Knowledge: Adequate Attention and Concentration: Adequate Memory: Unremarkable Mood: Other (Euthymic to somewhat restricted) Affect: Other (Slight decreased range and intensity) Thought Process & Associations: Linear Thought Content: Appropriate, Delusional Hallucination Type: None Delusion Type: Paranoid Suicidal Ideation: No Suicidal Plan: No Suicidal Intention: No Homicidal Ideation: No Homicidal Plan: No Homicidal Intention: No Insight: Adequate (Fair) Judgment: Adequate (Fair) Assessment and Plan - Plan Plan: Patient remains somewhat delusional though the intensity of it is diminished, she is calm and cooperative no suicidality or homicidality. Continue to await word from cocaine Justification for Continued Inpatient Stay: At this time patient would decompensate if not place an appropriate level of care Discharge Planning: Continue to await word from Request Healthcare Surrogate/Guardian Advocate?: No
--- NOTE | 2018-09-30 09:55 | P.TTN ---
- Patient Problems Problems: 1. Discharge planning 2. Medication compliance 3. Knowledge deficit 4. Lack of coping skills - Progress Toward Goals Provider Present: Dr. Sandee Perry Provider Input: 09/30/18: Pt is not needing meds adjustment. D/c option pending. 09/28/18: Pt has been newly re-admitted, following a recent discharge of several days ago. D/c options have not been determined as yet. Nurse Input: 09/30/18: Spoke with RN Iwona who reports pt is med compliant and describes her today as in "good spirits." Psychiatric Counselors Present: Other Psychiatric Therapist Input: 09/30/18: D/c option for [facility], awaiting on level 2 background. Zeke Colon, [facility] Group Spec/RT/OT/BRICEÑO Present: NAVARRO Graf Occupational Therapist Input: 09/30/18: Pt has not been completing groups for a full hour, due to physical symptoms of nausea and most recently vomited during group. - Discharge Plan 09/28/18: Pt has been newly re-admitted, following a recent discharge of several days ago. D/c options have not been determined as yet. - Documentation Teaching Recipient: Patient
[2018-10-01] MEDS: Sucralfate Liq 1 GM/10 ML UDC PO SCH ×3 (03:59→15:16)
--- NOTE | 2018-10-01 08:18 | P.PNPSY ---
Subjective Remarks: Patient seen in day room with floor staff. Chart reviewed. Patient calm and cooperative compliant medications. Continue to work on placement issues. Patient is scheduled for [facility] today. At this time I feel patient on meets criteria for involuntary psychiatric hospitalization. Thus I will lift the [place] act allow the patient to sign voluntary while we continue to work on placement issues Review of Systems All other systems reviewed negative except as stated in HPI Mental Status Examination Appearance: Appropriate Consciousness: Alert Orientation: Person, Place, Situation Motor Activity: Normal gait Speech: Unremarkable Language: Adequate Fund of Knowledge: Adequate Attention and Concentration: Adequate Memory: Unremarkable Mood: Other (Euthymic to somewhat restricted) Affect: Other (Slight decreased range and intensity) Thought Process & Associations: Linear Thought Content: Appropriate, Delusional Hallucination Type: None Delusion Type: Paranoid Suicidal Ideation: No Suicidal Plan: No Suicidal Intention: No Homicidal Ideation: No Homicidal Plan: No Homicidal Intention: No Insight: Adequate (Fair) Judgment: Adequate (Fair) Assessment and Plan - Plan Plan: Patient remains calm and cooperative at this time no longer meets [place] criteria will lift the Gore act. We will continue to work with her to find an appropriate placement Justification for Continued Inpatient Stay: At this time patient would decompensate if not placed in an appropriate level of care Discharge Planning: To be determined Request Healthcare Surrogate/Guardian Advocate?: No
[2018-10-01] MEDS: Senna/Docusate Sodium 8.6/50 MG Tablet PO SCH ×2 (08:27→20:09)
[2018-10-01] MEDS: Acetaminophen 325 MG Tablet PO PRN ×2 (08:35→20:09)
[2018-10-02] MEDS: Sucralfate Liq 1 GM/10 ML UDC PO SCH ×5 (01:18→20:50)
[2018-10-02] MEDS: Senna/Docusate Sodium 8.6/50 MG Tablet PO SCH ×2 (08:55→20:50)
[2018-10-02] MEDS: Acetaminophen 325 MG Tablet PO PRN ×2 (14:58→20:51)
--- NOTE | 2018-10-02 15:22 | P.PNPSY ---
Subjective Remarks: Patient seen in day room with nurse Rose, chart reviewed, patient compliant medication. Patient calm pleasant continues to be agreeable to an [facility] placement. She denies suicidality or homicidality voices or visions. There is still some vague delusional ideation but is. For now continue treatment Review of Systems All other systems reviewed negative except as stated in HPI Mental Status Examination Appearance: Appropriate Consciousness: Alert Orientation: Person, Place, Situation Motor Activity: Normal gait Speech: Unremarkable Language: Adequate Fund of Knowledge: Adequate Attention and Concentration: Adequate Memory: Unremarkable Mood: Other (Euthymic to somewhat restricted) Affect: Other (Slight decreased range and intensity) Thought Process & Associations: Linear Thought Content: Appropriate, Delusional Hallucination Type: None Delusion Type: Paranoid Suicidal Ideation: No Suicidal Plan: No Suicidal Intention: No Homicidal Ideation: No Homicidal Plan: No Homicidal Intention: No Insight: Adequate (Fair) Judgment: Adequate (Fair) Assessment and Plan - Assessment (1) Delusional disorder Code(s): F22 - Delusional disorders Status: Acute - Plan Plan: Patient remains somewhat delusional but it is softer and less intrusive. She is compliant medication. Continue to work on placement issues Justification for Continued Inpatient Stay: At this time patient with decompensated placed in a lower level of care Discharge Planning: To be determined Request Healthcare Surrogate/Guardian Advocate?: No
[2018-10-02 22:00] LABS: Baso # (Auto) 0.1 th/mm3 (0.0-0.2); Baso % (Auto) 1.2 % (0.0-2.0); Eos # (Auto) 0.2 th/mm3 (0.0-0.4); Eos % (Auto) 2.5 % (0.0-4.0); Hematocrit 30.5 % (35.0-46.0); Lymph # (Auto) 2.4 th/mm3 (1.0-4.8); Lymph % (Auto) 26.5 % (9.0-44.0); Mean Corpuscular HGB Conc 32.6 % (32.0-36.0); Mean Corpuscular Hemoglobin 26.7 pg (27.0-34.0); Mean Corpuscular Volume 81.8 fL (80.0-100.0); Mean Platelet Volume 8.6 fL (7.0-11.0); Mono % (Auto) 11.5 % (0.0-8.0); Neut # (Auto) 5.3 th/mm3 (1.8-7.7); Neut % (Auto) 58.3 % (16.0-70.0); Platelet Count 287 th/mm3 (150-450); Red Blood Count 3.73 mil/mm3 (4.00-5.30); Red Cell Distribution Width 16.4 % (11.6-17.2)
[2018-10-02 22:18] LABS: Carbon Dioxide 24.9 meq/L (21.0-32.0); Potassium 4.3 meq/L (3.5-5.1)
[2018-10-03] MEDS: Sucralfate Liq 1 GM/10 ML UDC PO SCH ×4 (04:40→21:11)
[2018-10-03] MEDS: Senna/Docusate Sodium 8.6/50 MG Tablet PO SCH ×2 (10:04→20:33)
--- NOTE | 2018-10-03 11:27 | P.PNFP ---
Subjective Interval history: She is calm, awake and alert and anticipating D/C to a SNF early next week. Results - Labs Result diagrams: 10/02/18 21:44 10/02/18 21:44 Abnormal lab results 10/02/18 10/02/18 Range/Units 21:44 21:44 RBC 3.73 L (4.00-5.30) mil/mm3 Hgb 10.0 L (11.6-15.3) gm/dL Hct 30.5 L (35.0-46.0) % MCH 26.7 L (27.0-34.0) pg [place] % (Auto) 11.5 H (0.0-8.0) % [place] # (Auto) 1.0 H (0.0-0.9) th/mm3 Sodium 135 L (136-145) meq/L BUN 41 H (7-18) mg/dL Creatinine 1.28 H (0.50-1.00) mg/dL Estimated GFR 41 L (>89) mL/min Random Glucose 107 H (74-106) mg/dL Short CBC 10/02/18 Range/Units 21:44 WBC 9.0 (4.0-11.0) th/mm3 Hgb 10.0 L (11.6-15.3) gm/dL Hct 30.5 L (35.0-46.0) % Plt Count 287 (150-450) th/mm3 BMP 10/02/18 21:44 Sodium 135 L Potassium 4.3 Chloride 103 Carbon Dioxide 24.9 BUN 41 H Creatinine 1.28 H Calcium 9.0 Physical Exam Vital signs: Vital Signs 10/02/18 18:29 10/02/18 18:36 10/02/18 20:00 Temperature 98.4 F 98.4 F Pulse Rate 78 78 Respiratory Rate 16 16 16 Blood Pressure 109/54 L 109/54 L Pulse Oximetry 96 96 10/03/18 05:58 10/03/18 07:51 Temperature 97.6 F 98.9 F Pulse Rate 77 77 Respiratory Rate 18 Blood Pressure 129/59 L 151/63 H Pulse Oximetry 97 97 Intake & Output 10/02/18 10/03/18 10/03/18 18:59 06:59 18:59 Intake Total 360 / 360 580 / 580 480 / 480 Balance 360 / 360 580 / 580 480 / 480 Intake: Oral 360 / 360 480 / 480 480 / 480 Oral Supplement 100 / 100 Other: # Voids 2 # Bowel Movements 1 - Constitutional no acute distress - Routine HEENT Exam Head: Present: normocephalic, atraumatic Eye: Present: PERRL, normal accommodation ENT: Present: mucous membranes moist - Routine Neck Exam Present: supple, full ROM - Routine Respiratory Exam Present: CTA bilaterally - Routine Cardiovascular Exam Present: RRR, S1, S2 - Routine Abdominal Exam Present: soft, normoactive bowel sounds - Routine Extremities Exam Present: full ROM. Absent: edema - Routine Skin Exam Present: intact - Routine Neurological Exam Present: alert, oriented X3 - Detailed Neurological Exam: Coma Scale Eye Opening: Spontaneous Verbal Response: Oriented Motor Response: Obey commands [place] Coma Scale Total: 15 - Routine Psychiatric Exam Present: normal affect Assessment and Plan - Assessment (1) Unspecified psychosis Code(s): F29 - Unspecified psychosis not due to a substance or known physiological condition Status: Acute Plan: Under care of Psych, follow rec's 10/03/18 - She has made strides this adm and she tells me and RN confirms she has been referred for SNF placement at [facility]. (2) Anemia Code(s): D64.9 - Anemia, unspecified Status: Acute Plan: transfused this visit HGB stable 10/03/18 - Will cont to monitor for anemia. Hg stable at 10 today. (3) HTN (hypertension) Code(s): I10 - Essential (primary) hypertension Status: Acute Plan: cont current treatment, monitor. 10/03/18 - Htn under acceptable control on the current regimen. (4) Diabetes Code(s): E11.9 - Type 2 diabetes mellitus without complications Status: Acute Plan: Controlled with diet, metformin on hold 10/03/18 - Glucose has been quite good in recent days from 105-178 on the current regimen. - Assessment and Plan labs in am. 10/03/18 - Labs including Hg and glucose are stable. She anticipates D/C to SNF next week if stable. Will cont to monitor closely.
--- NOTE | 2018-10-03 12:56 | P.PNPSY ---
Subjective Remarks: Reviewed electronic medical records and discussed case with staff. Follow-up was conducted in the day room with MELINA Mejia present. Nurse reports that she has been compliant with medications and had no behavioral disturbances. They continue to work on placement for her. Patient states that she slept pretty good. She reports that her appetite has been good. She does complain about joint pain and back pain since her ibuprofen was discontinued. She states that her mood is good and her affect does seem euthymic. Mental Status Examination Appearance: Appropriate Consciousness: Alert Orientation: Person, Place, Situation Motor Activity: Normal gait Speech: Unremarkable Language: Adequate Fund of Knowledge: Adequate Attention and Concentration: Adequate Memory: Unremarkable Mood: Other (Euthymic to somewhat restricted) Affect: Other (Slight decreased range and intensity) Thought Process & Associations: Linear Thought Content: Appropriate, Delusional Hallucination Type: None Delusion Type: Paranoid Suicidal Ideation: No Suicidal Plan: No Suicidal Intention: No Homicidal Ideation: No Homicidal Plan: No Homicidal Intention: No Insight: Adequate (Fair) Judgment: Adequate (Fair) Assessment and Plan - Assessment (1) Delusional disorder Code(s): F22 - Delusional disorders Status: Acute - Plan Plan: Patient will be reevaluated by the attending psychiatrist. Continue with current treatment plan. Justification for Continued Inpatient Stay: Moving this patient to a less restrictive environment would likely result in decompensation. Request Healthcare Surrogate/Guardian Advocate?: No
[2018-10-04] MEDS: Sucralfate Liq 1 GM/10 ML UDC PO SCH ×4 (05:51→21:47)
[2018-10-04] MEDS: Acetaminophen 325 MG Tablet PO PRN (06:36)
[2018-10-04] MEDS: Aluminum/Magnesium/Simethacone Susp 30 ML UDC PO PRN (06:44)
--- NOTE | 2018-10-04 08:29 | P.PNPSY ---
Subjective Remarks: Reviewed electronic medical records and discussed case with staff. Follow-up was conducted in the day room with MELINA Bower present. Patient is complaining of significant joint pain. Due to elevated BUN/CR her ASA and Motrin has been discontinued. Patient asking for alternative medication due to increased pain. Patient has been elevating her bed 45 degrees due to increased snoring and asking for B[facility]he-R[facility]. I have placed a hospitalist consultation to assist patient with her concerns. Patient is euthymic. She is pleasant. Delusions have decreased. Waiting on custodial placement. Review of Systems All other systems reviewed negative except as stated in HPI Respiratory: Reports other (raising HOB 45 degrees due to inc snoring. ) Mental Status Examination Appearance: Appropriate Consciousness: Alert Orientation: Person, Place, Situation Motor Activity: Normal gait Speech: Unremarkable Language: Adequate Fund of Knowledge: Adequate Attention and Concentration: Adequate Memory: Unremarkable Mood: Other (Euthymic to somewhat restricted) Affect: Other (Slight decreased range and intensity) Thought Process & Associations: Linear Thought Content: Appropriate, Delusional Hallucination Type: None Delusion Type: None Suicidal Ideation: No Suicidal Plan: No Suicidal Intention: No Homicidal Ideation: No Homicidal Plan: No Homicidal Intention: No Insight: Adequate (Fair) Judgment: Adequate (Fair) Assessment and Plan - Assessment (1) Delusional disorder Code(s): F22 - Delusional disorders Status: Acute - Plan Plan: Patient will be reevaluated by the attending psychiatrist. Continue with current treatment plan. Justification for Continued Inpatient Stay: Moving patient to a less restrictive environment may result in her decompensation. Request Healthcare Surrogate/Guardian Advocate?: No
[2018-10-04] MEDS: Senna/Docusate Sodium 8.6/50 MG Tablet PO SCH ×2 (08:35→20:30)
--- NOTE | 2018-10-04 11:33 | P.PNFP ---
Subjective Interval history: She C/O back and neck pain from arthritis and is asking for something stronger than Tylenol as it doesn't help. She is excited about possible D/C to [facility] later this week. Results - Labs Result diagrams: 10/02/18 21:44 10/02/18 21:44 Physical Exam Vital signs: Vital Signs 10/03/18 16:33 10/04/18 05:36 Temperature 98.7 F 98.7 F Pulse Rate 75 79 Respiratory Rate 17 17 Blood Pressure 134/62 144/64 H Pulse Oximetry 96 97 Intake & Output 10/03/18 10/04/18 10/04/18 18:59 06:59 18:59 Intake Total 960 / 960 360 / 360 Balance 960 / 960 360 / 360 Intake: Oral 960 / 960 360 / 360 Other: # Voids 3 Date of Last Bowel Movement 10/02/18 10/02/18 - Constitutional no acute distress - Routine HEENT Exam Head: Present: normocephalic, atraumatic Eye: Present: PERRL, normal accommodation ENT: Present: mucous membranes moist - Routine Neck Exam Present: supple, full ROM - Routine Respiratory Exam Present: CTA bilaterally - Routine Cardiovascular Exam Present: RRR, S1, S2 - Routine Abdominal Exam Present: soft, normoactive bowel sounds - Routine Extremities Exam Present: full ROM - Routine Skin Exam Present: intact - Routine Neurological Exam Present: alert, oriented X3 - Detailed Neurological Exam: Coma Scale Eye Opening: Spontaneous Verbal Response: Oriented Motor Response: Obey commands [place] Coma Scale Total: 15 - Routine Psychiatric Exam Present: cooperative Assessment and Plan - Assessment (1) Unspecified psychosis Code(s): F29 - Unspecified psychosis not due to a substance or known physiological condition Status: Acute Plan: Under care of Psych, follow rec's 10/03/18 - She has made strides this adm and she tells me and RN confirms she has been referred for SNF placement at [facility]. 10/04/18 - Cont plan per psych. (2) Anemia Code(s): D64.9 - Anemia, unspecified Status: Acute Plan: transfused this visit HGB stable 10/03/18 - Will cont to monitor for anemia. Hg stable at 10 today. 10/04/18 - Avoid NSAIDs and monitor hg with recheck in the AM. (3) HTN (hypertension) Code(s): I10 - Essential (primary) hypertension Status: Acute Plan: cont current treatment, monitor. 10/03/18 - Htn under acceptable control on the current regimen. 10/04/18 - Cont to be well controlled at this time. (4) Diabetes Code(s): E11.9 - Type 2 diabetes mellitus without complications Status: Acute Plan: Controlled with diet, metformin on hold 10/03/18 - Glucose has been quite good in recent days from 105-178 on the current regimen. 10/04/18 - DM under acceptable control at this time. (5) Arthritis Code(s): M19.90 - Unspecified osteoarthritis, unspecified site Status: Acute Plan: Since NSAIDS were stopped she C/O worsening arthritis pain so I will order PRN Tylenol with codeine as needed. - Assessment and Plan labs in am. 10/03/18 - Labs including Hg and glucose are stable. She anticipates D/C to SNF next week if stable. Will cont to monitor closely. 10/04/18 - D/C planning per Psych. Tylenol #3 added to her regimen today for arthritis pain as she can no longer take NSAIDs due to decreased Hg. F/U labs including Hg in the AM.
[2018-10-05] MEDS: Sucralfate Liq 1 GM/10 ML UDC PO SCH ×4 (05:05→20:45)
[2018-10-05 07:28] LABS: Baso # (Auto) 0.1 th/mm3 (0.0-0.2); Baso % (Auto) 0.9 % (0.0-2.0); Eos # (Auto) 0.2 th/mm3 (0.0-0.4); Eos % (Auto) 2.3 % (0.0-4.0); Hematocrit 30.7 % (35.0-46.0); Lymph # (Auto) 1.4 th/mm3 (1.0-4.8); Lymph % (Auto) 19.2 % (9.0-44.0); Mean Corpuscular HGB Conc 32.6 % (32.0-36.0); Mean Corpuscular Hemoglobin 27.1 pg (27.0-34.0); Mean Corpuscular Volume 83.2 fL (80.0-100.0); Mean Platelet Volume 8.8 fL (7.0-11.0); Mono # (Auto) 0.9 th/mm3 (0.0-0.9); Mono % (Auto) 11.8 % (0.0-8.0); Neut # (Auto) 4.8 th/mm3 (1.8-7.7); Neut % (Auto) 65.8 % (16.0-70.0); Platelet Count 275 th/mm3 (150-450); Red Blood Count 3.69 mil/mm3 (4.00-5.30); Red Cell Distribution Width 16.5 % (11.6-17.2); White Blood Count 7.3 th/mm3 (4.0-11.0)
[2018-10-05 08:07] LABS: Alanine Aminotransferase 10 U/L (10-53); Albumin 2.9 g/dL (3.4-5.0); Alkaline Phosphatase 121 U/L (45-117); Anion Gap 3 meq/L (5-15); Aspartate Aminotransferase 10 U/L (15-37); Blood Urea Nitrogen 24 mg/dL (7-18); Calcium 9.1 mg/dL (8.5-10.1); Carbon Dioxide 31.6 meq/L (21.0-32.0); Chloride 107 meq/L (98-107); Glomerular Filtration Rate 86 mL/min (>89); Glucose,Random 101 mg/dL (74-106); Potassium 4.6 meq/L (3.5-5.1); Sodium 142 meq/L (136-145); Total Protein 7.1 g/dL (6.4-8.2)
[2018-10-05] MEDS: Senna/Docusate Sodium 8.6/50 MG Tablet PO SCH ×2 (08:32→20:19)
--- NOTE | 2018-10-05 11:26 | P.TTN ---
- Patient Problems Problems: 1. Discharge planning 2. Medication compliance 3. Knowledge deficit 4. Lack of coping skills - Progress Toward Goals Provider Present: Dr. Sandee Perry Provider Input: 10/05/18: Still meets criteria, needs placement, less paranoid. 09/30/18: Pt is not needing meds adjustment. D/c option pending. 09/28/18: Pt has been newly re-admitted, following a recent discharge of several days ago. D/ c options have not been determined as yet. Nurse(s) Present: Angelica Nurse Input: 10/05/18: Angelica: Appropriate with Staff, Med compliant. 09/30/18: Spoke with RN Iwona who reports pt is med compliant and describes her today as in "good spirits." Psychiatric Counselors Present: Luly Lucero, [facility], Other Psychiatric Therapist Input: 10/05/18: Still meets criteria, Needs placement. : D/c option for [facility], awaiting on level 2 background. Zeke Colon [facility] Group Spec/RT/OT/BRICEÑO Present: Sendy Brooke, RICKY, Semaj Husain, OT Group Spec/RT/OT/BRICEÑO Input: 10/05/18: pt attends select group activities with good participation. Pt is social with peers. Occupational Therapist Input: 09/30/18: Pt has not been completing groups for a full hour, due to physical symptoms of nausea and most recently vomited during group. - Discharge Plan 09/28/18: Pt has been newly re-admitted, following a recent discharge of several days ago. D/c options have not been determined as yet. - Documentation Teaching Recipient: Patient
--- NOTE | 2018-10-05 12:26 | P.PNPSY ---
Subjective Remarks: Patient is seen in her room to the floor staff, chart reviewed, patient compliant medication. Progress note from yesterday noted and reviewed and agreed with the patient is not complaining of pain with me today. She continues somewhat frustrated but coping with delays in placement due to documentation. For now continue treatment no change Review of Systems All other systems reviewed negative except as stated in HPI Mental Status Examination Appearance: Appropriate Consciousness: Alert Orientation: Person, Place, Situation Motor Activity: Normal gait Speech: Unremarkable Language: Adequate Fund of Knowledge: Adequate Attention and Concentration: Adequate Memory: Unremarkable Mood: Other (Euthymic to somewhat restricted) Affect: Other (Slight decreased range and intensity) Thought Process & Associations: Linear Thought Content: Appropriate, Delusional Hallucination Type: None Delusion Type: None Suicidal Ideation: No Suicidal Plan: No Suicidal Intention: No Homicidal Ideation: No Homicidal Plan: No Homicidal Intention: No Insight: Adequate (Fair) Judgment: Adequate (Fair) Assessment and Plan - Assessment (1) Delusional disorder Code(s): F22 - Delusional disorders Status: Acute - Plan Plan: Patient is somewhat, showing softening of the delusions though when pressed she still shows some verification of them. Otherwise she has no behavior problems Justification for Continued Inpatient Stay: At this point patient would decompensate if not place an appropriate level of care Discharge Planning: To be determined Request Healthcare Surrogate/Guardian Advocate?: No
[2018-10-06] MEDS: Sucralfate Liq 1 GM/10 ML UDC PO SCH ×4 (04:12→20:51)
[2018-10-06] MEDS: Senna/Docusate Sodium 8.6/50 MG Tablet PO SCH ×2 (08:18→20:42)
--- NOTE | 2018-10-06 09:08 | P.DSPSY ---
Psychiatry Discharge Summary Inpatient Psychiatric care?: Yes Advance Directives: No Reason for Unknown:: Due to Patient Condition Mental Health Advance Directive: No Health Care Proxy: No - Admission Admission Date: September 24, 2018 14:05 - Admission Diagnosis (1) Delusional disorder Code(s): F22 - Delusional disorders Brief History: Patient a 70-year-old white female was initially admitted to my service on visit [id number]. Patient developed medical issues that led to her being transferred to the intensive care unit on 09/20 through 09/24 with visit [id number] patient medically cleared and then transferred back down here. Patient was seen in consultation by Dr. Mistry while on the medical unit. Patient seen today by me with medical student Jessica and nurse. Patient is alert continues diffusely confused and psychotic the delusions that initially caused her hospitalization persist at this time for now we will continue treatment continue medications continue the consultations with the hospitalist is also Tobacco Use In Past 30 Days: No How Often Do You Have a Drink Containing Alcohol: Unable to Obtain Hospital Course: Patient's hospital course was uneventful, she was calm and cooperative with medication from day of admission. She was followed also by the medical service. Her delusions slowly softened. There is some increased reality testing. She denies suicidality or homicidality voices or visions at the present time. Patient was quite willing to be referred to a [facility] facility. She did not wish to go back to her private residence. Thus at this time patient reached maximum benefit of this hospitalization she is able contract to do no harm. She is willing to go [facility] SNF there is a bed available today patient to be discharged today to that facility with Rx times 1 month to follow-up services through that facility - Discharge Discharge Date: 10/06/18 - Discharge Diagnosis (1) Delusional disorder Diagnosis: Principal Code(s): F22 - Delusional disorders Status: Acute Discharge Disposition: Custodial Facility - Discharge Instructions Discharge Diet: Regular Diet Activities You Can Perform: Regular- No Restrictions - Discharge Time > 30 minutes Mental Status Examination Appearance: Appropriate Consciousness: Alert Orientation: Person, Place, Situation Motor Activity: Normal gait Speech: Unremarkable Language: Adequate Fund of Knowledge: Adequate Attention and Concentration: Adequate Memory: Unremarkable Mood: Other (Euthymic to somewhat restricted) Affect: Other (Slight decreased range and intensity) Thought Process & Associations: Linear Thought Content: Appropriate, Delusional Hallucination Type: None Delusion Type: None Suicidal Ideation: No Suicidal Plan: No Suicidal Intention: No Homicidal Ideation: No Homicidal Plan: No Homicidal Intention: No Insight: Adequate (Fair) Judgment: Adequate (Fair) Discharge/Advance Care Plan - Results Vital Signs: Last Vital Signs Temp 97.5 F L 10/06/18 05:55 Pulse 89 10/06/18 05:55 Resp 18 10/06/18 05:55 BP 142/66 H 10/06/18 05:55 Pulse Ox 97 10/06/18 05:55 Lab Results: Laboratory Results Hemoglobin A1c 5.4 % (4.3-6.0) 09/25/18 08:50 Triglycerides 74 mg/dL (42-150) 09/25/18 08:50 Cholesterol 156 mg/dL (120-200) 09/25/18 08:50 LDL Cholesterol, Calc 65 mg/dL (0-99) 09/25/18 08:50 HDL Cholesterol 75.8 mg/dL (40.0-60.0) H 09/25/18 08:50 Summary of Procedures: None done Pending Results: None - Medications Number of antipsychotic medications at discharge: 1 - Discharge Care Plan Goals to Promote Your Health: * To prevent worsening of your condition and complications * To maintain your health at the optimal level Directions to Meet Your Goals: Take your medications as prescribed Follow your dietary instruction Follow activity as directed Keep your appointments as scheduled Take your immunizations and boosters as scheduled If your symptoms worsen call your PCP, if no PCP go to Urgent Care Center or Emergency Room For 26/05 questions related to your inpatient stay or results of tests pending at discharge, please contact Dr. Tre Perry MD at Smoking is Dangerous to Your Health. Avoid second hand smoking
[2018-10-06] MEDS: Acetaminophen/Codeine 300/30 MG Tablet PO PRN ×2 (10:26→21:25)
[2018-10-07] MEDS: Sucralfate Liq 1 GM/10 ML UDC PO SCH ×4 (04:19→21:22)
[2018-10-07] MEDS: Acetaminophen/Codeine 300/30 MG Tablet PO PRN ×2 (06:11→19:10)
[2018-10-07] MEDS: Senna/Docusate Sodium 8.6/50 MG Tablet PO SCH ×2 (09:48→21:22)
--- NOTE | 2018-10-07 10:46 | P.PNPSY ---
Subjective Remarks: Patient's anticipated discharge yesterday was canceled due to the receiving facility not having all the appropriate documents. Hopefully those documents will be transmitted to them today so the patient can be discharged. Patient is coping with that well patient is seen today with her staff she is alert overall , cooperative with this her vague delusional ideation remains was not intrusive or causing her any behavioral issues. For now continue treatment Review of Systems All other systems reviewed negative except as stated in HPI Mental Status Examination Appearance: Appropriate Consciousness: Alert Orientation: Person, Place, Situation Motor Activity: Normal gait Speech: Unremarkable Language: Adequate Fund of Knowledge: Adequate Attention and Concentration: Adequate Memory: Unremarkable Mood: Other (Euthymic to somewhat restricted) Affect: Other (Slight decreased range and intensity) Thought Process & Associations: Linear Thought Content: Appropriate, Delusional Hallucination Type: None Delusion Type: None Suicidal Ideation: No Suicidal Plan: No Suicidal Intention: No Homicidal Ideation: No Homicidal Plan: No Homicidal Intention: No Insight: Adequate (Fair) Judgment: Adequate (Fair) Assessment and Plan - Assessment (1) Delusional disorder Code(s): F22 - Delusional disorders Status: Acute - Plan Plan: Patient's discharge was delayed due to lack of a certain documentation. Hopefully there would be achieved today so the patient may be discharged to her receiving facility. She denies suicidality or homicidality voices or visions. He is calm and is coping with these delays Justification for Continued Inpatient Stay: At this time patient with decompensated placed in an appropriate level of care Discharge Planning: Awaiting documentation to allow for discharge to her placement Request Healthcare Surrogate/Guardian Advocate?: No
--- NOTE | 2018-10-07 14:43 | P.TTN ---
- Patient Problems Problems: 1. Discharge planning 2. Medication compliance 3. Knowledge deficit 4. Lack of coping skills - Progress Toward Goals Provider Present: Dr. Sandee Perry Provider Input: 10/06/18: Per md pt meets criteria, less paranoid, waiting on placement. 10/05/18: Still meets criteria, needs placement, less paranoid. : Pt is not needing meds adjustment. D/c option pending. 09/28/18: Pt has been newly re-admitted, following a recent discharge of several days ago. D/c options have not been determined as yet. Nurse(s) Present: Angelica Nurse Input: 10/06/18 Per RN pt is compliant with meds and appropriate with staff. 10/05/18: Angelica: Appropriate with Staff, Med compliant. 09/30/18: Spoke with RN Iwona who reports pt is med compliant and describes her today as in "good spirits." Psychiatric Counselors Present: Luly Lucero [facility], Other Psychiatric Therapist Input: 10/06/18: Waiting on [facility] for placement, will get change health invovled. Zeke Colon [facility]. 10/05/18: Still meets criteria, Needs placement. 09/30/18: D/c option for [facility], awaiting on level 2 background. AMELIA Rene Group Spec/RT/OT/BRICEÑO Present: Sendy Brooke, RICKY, Semaj Husain, OT Group Spec/RT/OT/BRICEÑO Input: 10/06/18: pt attends select group activities and is social with otheres. 10/05/18: pt attends select group activities with good participation. Pt is social with peers. Occupational Therapist Input: 09/30/18: Pt has not been completing groups for a full hour, due to physical symptoms of nausea and most recently vomited during group. - Discharge Plan 09/28/18: Pt has been newly re-admitted, following a recent discharge of several days ago. D/c options have not been determined as yet. - Documentation Teaching Recipient: Patient
[2018-10-07 17:35] VITALS: TEMP 97.7
[2018-10-08] MEDS: Sucralfate Liq 1 GM/10 ML UDC PO SCH ×2 (03:09→08:52)
[2018-10-08] MEDS: Aluminum/Magnesium/Simethacone Susp 30 ML UDC PO PRN (03:09)
[2018-10-08 06:24] VITALS: BP 162/69; PULSE 80; RESP 17; O2SAT 98
--- NOTE | 2018-10-08 08:09 | P.PNPSY ---
Subjective Remarks: Documentation necessary for discharge to [facility] have been accomplished. Patient to be discharged today to the facility with Rx times a month to follow -up with services through that facility. Penis shows no significant change in behavior mental status exam over the past 24 hours. Review of Systems All other systems reviewed negative except as stated in HPI Mental Status Examination Appearance: Appropriate Consciousness: Alert Orientation: Person, Place, Situation Motor Activity: Normal gait Speech: Unremarkable Language: Adequate Fund of Knowledge: Adequate Attention and Concentration: Adequate Memory: Unremarkable Mood: Other (Euthymic to somewhat restricted) Affect: Other (Slight decreased range and intensity) Thought Process & Associations: Linear Thought Content: Appropriate, Delusional Hallucination Type: None Delusion Type: None Suicidal Ideation: No Suicidal Plan: No Suicidal Intention: No Homicidal Ideation: No Homicidal Plan: No Homicidal Intention: No Insight: Adequate (Fair) Judgment: Adequate (Fair) Assessment and Plan - Assessment (1) Delusional disorder Code(s): F22 - Delusional disorders Status: Acute - Plan Plan: Discharged today to [facility] Justification for Continued Inpatient Stay: Discharge today to [facility] Discharge Planning: Discharge today Request Healthcare Surrogate/Guardian Advocate?: No
[2018-10-08] MEDS: Senna/Docusate Sodium 8.6/50 MG Tablet PO SCH (08:52)
[2018-10-08] MEDS: Acetaminophen/Codeine 300/30 MG Tablet PO PRN (08:52)
== END 2018-10-08 10:50 ==
LOC: H250 14:05
PROVIDERS: ADMIT Psychiatry & Neurology Psychiatry; ATTEND Psychiatry & Neurology Psychiatry